=== PATIENT | male | born 1965 | race Caucasian/White ===

== ENCOUNTER 2019-05-06 12:53 | Inpatient (IN) | payer OTHER ==
[2019-05-06 15:52] VITALS: BMI 36.9
--- NOTE | 2019-05-06 16:59 | HP ---
CIWA Score Nausea/Vomitin-Mild Nausea/No Vomiting Muscle Tremors: 3 Anxiety: 2 Agitation: 1-Slight > Activity Paroxysmal Sweats: 1-Minimal Palms Moist Orientation: 0-Oriented Tacttile Disturbances: 1-Very Mild Itch/Numbness Auditory Disturbances: 1-Very Mild Visual Disturbances: 1-Very Mild Sensitivity Headache: 1-Very Mild CIWA-Ar Total Score: 12 - Admission Criteria OASAS Guidelines: Admission for Medically Managed Detox: Requires at least one of the followin. CIWA greater than 12 2. Seizures within the past 24 hours 3. Delirium tremens within the past 24 hours 4. Hallucinations within the past 24 hours 5. Acute intervention needed for co occurring medical disorder 6. Acute intervention needed for co occurring psychiatric disorder 7. Severe withdrawal that cannot be handled at a lower level of care (continued vomiting, continued diarrhea, abnormal vital signs) requiring intravenous medication and/or fluids 8. Admission ROS [facility] - [facility] Chief Complaint: WITHDRAWAL SYMPTOMS Allergies/Adverse Reactions: Allergies Allergy/AdvReac Type Severity Reaction Status Date / Time Penicillins Allergy Intermediate Rash Verified 05/06/19 15:36 History of Present Illness: 53 Y.O. MAN WITH AN EXTENSIVE HISTORY OF ALCOHOL DEPENDENCE IS HERE FOR DETOX. HE REPORTS HE LAST COMPLETED DETOX 8 MONTHS AGO AT [facility]. DOES NOT HAVE A SIGNIFICANT PERIOD OF SOBRIETY. Exam Limitations: No Limitations - Ebola screening Have you traveled outside of the country in the last 21 days: No Have you had contact with anyone from an Ebola affected area: No - Review of Systems Constitutional: No Symptoms Reported EENT: reports: No Symptoms Reported Respiratory: reports: No Symptoms reported Cardiac: reports: No Symptoms Reported GI: reports: No Symptoms Reported : reports: No Symptoms Reported Musculoskeletal: reports: No Symptoms Reported Integumentary: reports: No Symptoms Reported Neuro: reports: Headache, Tremors Endocrine: reports: No Symptoms Reported Hematology: reports: No Symptoms Reported Psychiatric: reports: Orientated x3 Other Systems: Reviewed and Negative Patient History - Patient Medical History Hx Anemia: No Hx Asthma: Yes Hx Chronic Obstructive Pulmonary Disease (COPD): No Hx Cancer: No Hx Cardiac Disorders: No Hx Congestive Heart Failure: No Hx Hypertension: Yes (TAKES MEDICATION ) Hx Hypercholesterolemia: Yes (TAKES MEDICATION ) Hx Pacemaker: No HX Cerebrovascular Accident: No Hx Seizures: No Hx Dementia: No Hx Diabetes: Yes (TAKES MEDICATION ) Hx Gastrointestinal Disorders: Yes Hx Liver Disease: No Hx Genitourinary Disorders: No Hx Sexually Transmitted Disorders: No Hx Renal Disease (ESRD): No Hx Thyroid Disease: No Hx Human Immunodeficiency Virus (HIV): No Hx Hepatitis C: No Hx Depression: Yes (TAKES MEDICATION ) Hx Suicide Attempt: Yes (9 YEARS AGO ATTEMPTED TO SLIT HIS WRISTS ) Hx Bipolar Disorder: Yes Hx Schizophrenia: Yes - Patient Surgical History Past Surgical History: No - PPD History Previous Implant?: Yes Documented Results: Negative w/o proof PPD to be Administered?: Yes - Reproductive History Patient is a Female of Child Bearing Age (11 -55 yrs old): No - Smoking Cessation Smoking history: Never smoked - Substance & Tx. History Hx Alcohol Use: Yes Hx Substance Use: No Substance Use Type: Alcohol Hx Substance Use Treatment: Yes (8 MONTHS AGO AT [facility] ) - Substances abused Alcohol Substance route: Oral Frequency: Daily Amount used: 2/40oz beer, 1 pint vodka Age of first use: 21 Date of last use: 05/05/19 Family Disease History - Family Disease History Family Disease History: Other: Mother (ETOH DEPENDENCE ), Sister (ETOH DEPENDENCE ) Admission Physical Exam [facility] - Vital Signs Vital Signs: Vital Signs - 24 hr 05/06/19 15:31 Temperature 97.1 F L Pulse Rate 71 Respiratory 16 Rate Blood Pressure 124/71 - Physical General Appearance: Yes: Irritable, Anxious HEENTM: Yes: Hearing grossly Normal, Normocephalic, Normal Voice Respiratory: Yes: Chest Non-Tender, Lungs Clear, Normal Breath Sounds, No Respiratory Distress, No Accessory Muscle Use Neck: Yes: Within Normal Limits Breast: Yes: Breast Exam Deferred Cardiology: Yes: Regular Rhythm, Regular Rate Abdominal: Yes: Normal Bowel Sounds, Non Tender Genitourinary: Yes: Other (DENIES) Back: Yes: Normal Inspection Musculoskeletal: Yes: full range of Motion, Gait Steady, Pelvis Stable Extremities: Yes: Normal Inspection, Normal Range of Motion, Tremors Neurological: Yes: Alert, Motor Strength 5/5, Normal Mood/Affect, Normal Response Integumentary: Yes: Normal Color, Dry, Warm Lymphatic: Yes: Within Normal Limits - Diagnostic (1) Alcohol dependence with uncomplicated withdrawal Current Visit: Yes Status: Chronic (2) Asthma Current Visit: Yes Status: Chronic (3) Diabetes type 2, controlled Current Visit: Yes Status: Chronic (4) Hypertension Current Visit: Yes Status: Chronic (5) Hyperlipidemia Current Visit: Yes Status: Chronic (6) Obese Current Visit: Yes Status: Chronic Qualifiers: Obesity classification: adult class 2 (BMI 35 - 39.9) Body mass index: BMI 37.0-37.9 (7) GERD (gastroesophageal reflux disease) Current Visit: Yes Status: Chronic Cleared for Admission [facility] - Detox or Rehab [facility] Level of Care: Medically Managed Detox Regimen/Protocol: Librium Inpatient Rehab Admission - Rehab Decision to Admit Inpatient rehab admission?: No
[2019-05-06] MEDS ORDERED: QUEtiapine FUMARATE 100 MG TABLET (FP) PO PRN (17:10)
[2019-05-06] MEDS ORDERED: MELATONIN 5 MG TABLETS PO PRN (17:10)
[2019-05-06] MEDS ORDERED: MENTHOL/PHENOL 1 EACH UD MM PRN (17:10)
[2019-05-06] MEDS ORDERED: hydrOXYzine PAMOATE 50 MG CAPSULE (FP) PO PRN (17:10)
[2019-05-06] MEDS ORDERED: IBUPROFEN 400 MG TABLET (FP) PO PRN (17:10)
[2019-05-06] MEDS ORDERED: chlordiazePOXIDE HCL 10 MG CAPSULE PO PRN (17:10)
[2019-05-06] MEDS ORDERED: MAG HYDROX/AL HYDROX/SIMETH 30 ML UNIT-DOSE CUP PO PRN (17:10)
[2019-05-06] MEDS ORDERED: MAGNESIUM HYDROX 2400MG/30ML ORAL SUSPENSION 30 ML CUP PO PRN (17:10)
[2019-05-06] MEDS ORDERED: METHOCARBAMOL 500 MG TABLET PO PRN (17:10)
[2019-05-06] MEDS ORDERED: ACETAMINOPHEN 325 MG TABLET (FP) PO PRN ×2 (17:10)
[2019-05-06] MEDS ORDERED: BISMUTH SUBSALICYLATE 524 MG/30 ML UD PO PRN (17:10)
[2019-05-06] MEDS ORDERED: MAGNESIUM CITRATE 300 ML BOTTLE PO PRN (17:10)
[2019-05-06] MEDS ORDERED: chlordiazePOXIDE HCL 25 MG CAPSULE PO ONE (18:00)
[2019-05-06] MEDS: ALBUTEROL SO4 8 GM HFA INHALER IH PRN (19:19)
[2019-05-06] MEDS: ATORVASTATIN CA 20 MG TABLET (FP) PO SCH (22:12)
[2019-05-06] MEDS: THIAMINE HCL 100 MG TABLET (FP) PO SCH (22:12)
[2019-05-06] MEDS: chlordiazePOXIDE HCL 25 MG CAPSULE PO SCH (22:12)
[2019-05-07] MEDS: ALBUTEROL SO4 8 GM HFA INHALER IH PRN ×3 (03:36→20:37)
[2019-05-07] MEDS: chlordiazePOXIDE HCL 25 MG CAPSULE PO SCH ×2 (06:40→13:09)
--- NOTE | 2019-05-07 08:05 | EKG ---
Test Reason : Blood Pressure : / mmHG Vent. Rate : 067 BPM Atrial Rate : 067 BPM P-R Int : 172 ms QRS Dur : 096 ms QT Int : 406 ms P-R-T Axes : 010 -09 013 degrees QTc Int : 429 ms NORMAL SINUS RHYTHM MINIMAL VOLTAGE CRITERIA FOR LVH, MAY BE NORMAL VARIANT BORDERLINE ECG NO PREVIOUS ECGS AVAILABLE Confirmed by SOPHIA MERCADO MD ([id number]) on 05/07/2019 8:04:30 AM Referred By: Confirmed By:SOPHIA MERCADO MD
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
[2019-05-07] MEDS: SERTRALINE HCL 50 MG TABLET (FP) PO SCH (10:17)
[2019-05-07] MEDS: LOSARTAN POTASSIUM 50 MG TABLET (FP) PO SCH (10:17)
[2019-05-07] MEDS: PRENATAL VITAMINS W/ FOLIC ACID TABLET (FP) PO SCH (10:17)
--- NOTE | 2019-05-07 11:17 | PN ---
[facility] CIWA - CIWA Score Nausea/Vomitin-Mild Nausea/No Vomiting Muscle Tremors: 2 Anxiety: 1-Mildly Anxious Agitation: 1-Slight > Activity Paroxysmal Sweats: No Perspiration Orientation: 0-Oriented Tacttile Disturbances: 0-None Auditory Disturbances: 0-None Visual Disturbances: 0-None Headache: 0-None Present CIWA-Ar Total Score: 5 BHS Progress Note (SOAP) Subjective: pt states he is feeling fine, on alcohol detox protocol O: Vital Signs - 24 hr 05/06/19 05/06/19 05/06/19 15:31 16:56 18:20 Temperature 97.1 F L 97.1 F L 98.1 F Pulse Rate 71 71 67 Respiratory 16 16 18 Rate Blood Pressure 124/71 124/71 148/82 05/06/19 05/07/19 05/07/19 20:42 07:01 10:00 Temperature 97.9 F 9737 F H 97.5 F L Pulse Rate 66 66 64 Respiratory 18 18 20 Rate Blood Pressure 125/68 116/69 123/75 Laboratory Tests 05/06/19 05/07/19 18:22 06:38 POC Glucometer 147 107 labs pending a/p: contine alcohol detox protocol requesting nebulizer treatment for asthma- given X1
[2019-05-07] MEDS ORDERED: ALBUTEROL SO4 0.083% IH SOL 2.5 MG/3 ML VIAL.NEB. NEB ONE ×2 (12:10→23:27)
[2019-05-07] MEDS: QUEtiapine FUMARATE 400 MG TABLET PO SCH (22:12)
[2019-05-07] MEDS: THIAMINE HCL 100 MG TABLET (FP) PO SCH (22:12)
[2019-05-07] MEDS: ATORVASTATIN CA 20 MG TABLET (FP) PO SCH (22:12)
[2019-05-07] MEDS: chlordiazePOXIDE 5 MG CAPSULE PO SCH (22:13)
[2019-05-07] MEDS ORDERED: ONDANSETRON *ODT* 4 MG TABLET SL ONE (23:28)
--- NOTE | 2019-05-08 00:03 | PN ---
[facility] Progress Note Note: Patient complained of feeling wheezing and nauseous Vital Signs Temperature 97.9 F 05/07/19 21:22 Pulse Rate 69 05/07/19 21:22 Respiratory Rate 18 05/07/19 21:22 Blood Pressure 128/75 05/07/19 21:22 O2 Sat by Pulse Oximetry (%) 96% RA Action: Ondansetron 4mg SL and nebulizer treatment ordered
[2019-05-08] MEDS: ALBUTEROL SO4 8 GM HFA INHALER IH PRN ×2 (04:51→08:56)
[2019-05-08] MEDS ORDERED: ALBUTEROL SO4 0.083% IH SOL 2.5 MG/3 ML VIAL.NEB. NEB ONE (04:57)
[2019-05-08] MEDS: chlordiazePOXIDE 5 MG CAPSULE PO SCH ×2 (05:42→14:00)
[2019-05-08] MEDS ORDERED: ALBUTEROL SO4 2.5/IPRATROPIUM 0.5 INH SOL 3 ML VIAL.NEB. NEB PRN (09:18)
[2019-05-08] MEDS ORDERED: predniSONE 20 MG TABLET (UD) PO ONE (10:00)
--- NOTE | 2019-05-08 10:20 | PN ---
[facility] CIWA - CIWA Score Nausea/Vomitin Muscle Tremors: 2 Anxiety: 2 Agitation: 2 Paroxysmal Sweats: 1-Minimal Palms Moist Orientation: 0-Oriented Tacttile Disturbances: 1-Very Mild Itch/Numbness Auditory Disturbances: 1-Very Mild Visual Disturbances: 0-None Headache: 2-Mild CIWA-Ar Total Score: 13 [facility]HS Progress Note (SOAP) Subjective: alert,irritable,anxious,interrupted sleep,expiratory wheezing Objective: 05/08/19 10:17 Vital Signs Temperature 97.5 F L 05/08/19 09:11 Pulse Rate 67 05/08/19 09:11 Respiratory Rate 16 05/08/19 09:11 Blood Pressure 120/71 05/08/19 09:11 O2 Sat by Pulse Oximetry (%) 05/08/19 10:17 Laboratory Last Values POC Glucometer 194 UNITS (80-120) 05/08/19 05:41 labs pending Assessment: 05/08/19 10:18 withdrawal symptom acute exacerbation of asthma Plan: continue detox,albuterol inhaler,symbicort inhaler,duoneb nebulizer,start on prednisone
[2019-05-08 11:03] LABS: ALBUMIN 3.7 g/dl (3.4-5.0); BILIRUBIN,TOTAL 0.3 mg/dL (0.2-1); BLOOD UREA NITROGEN 10.2 mg/dL (7-18); CALCIUM 8.6 mg/dL (8.5-10.1); CREATININE 0.7 mg/dL (0.55-1.3); POTASSIUM 4.1 mmol/L (3.5-5.1); TOT PROT 6.6 g/dl (6.4-8.2)
[2019-05-08 11:05] LABS: HEMATOCRIT 38.6 % (35.4-49); HEMOGLOBIN 12.9 GM/dL (11.7-16.9); MCH 30.5 pg (25.7-33.7); MCHC 33.5 g/dl (32.0-35.9); MEAN CELL VOLUME 91.2 fl (80-96); MEAN PLT VOLUME 8.8 fl (7.5-11.1); PLATELET COUNT 234 K/MM3 (134-434); RBC 4.23 M/mm3 (4.00-5.60); RDW 13.8 % (11.9-15.9); WHITE BLOOD COUNT 6.9 K/mm3 (4.0-10.0)
[2019-05-08] MEDS: LOSARTAN POTASSIUM 50 MG TABLET (FP) PO SCH (11:21)
[2019-05-08] MEDS: BUDESONIDE/FORMETEROL FUMARATE 160/4.5 mcg INHALER IH SCH ×2 (11:21→22:11)
[2019-05-08] MEDS: PRENATAL VITAMINS W/ FOLIC ACID TABLET (FP) PO SCH (11:21)
[2019-05-08] MEDS: SERTRALINE HCL 50 MG TABLET (FP) PO SCH (11:25)
[2019-05-08] MEDS ORDERED: chlordiazePOXIDE HCL 10 MG CAPSULE PO PRN (21:00)
[2019-05-08] MEDS: chlordiazePOXIDE HCL 10 MG CAPSULE PO SCH (22:11)
[2019-05-08] MEDS: ATORVASTATIN CA 20 MG TABLET (FP) PO SCH (22:11)
[2019-05-08] MEDS: QUEtiapine FUMARATE 400 MG TABLET PO SCH (22:11)
[2019-05-08] MEDS: THIAMINE HCL 100 MG TABLET (FP) PO SCH (22:12)
[2019-05-09] MEDS: chlordiazePOXIDE HCL 10 MG CAPSULE PO SCH ×3 (06:41→22:05)
--- NOTE | 2019-05-09 09:30 | PN ---
[facility] CIWA - CIWA Score Nausea/Vomitin-No Nausea/No Vomiting Muscle Tremors: 1-None Visible, but [place] Anxiety: 2 Agitation: 0-Normal Activity Paroxysmal Sweats: 2 Orientation: 0-Oriented Tacttile Disturbances: 1-Very Mild Itch/Numbness Auditory Disturbances: 0-None Visual Disturbances: 0-None Headache: 1-Very Mild CIWA-Ar Total Score: 7 S Progress Note (SOAP) Subjective: c/o of interrupted sleep, constipation x 4 days ( denies abdominal pain), chills , sweats Objective: 05/09/19 11:02 Vital Signs Temperature 97.2 F L 05/09/19 09:13 Pulse Rate 63 05/09/19 09:13 Respiratory Rate 18 05/09/19 09:13 Blood Pressure 125/76 05/09/19 09:13 O2 Sat by Pulse Oximetry (%) Laboratory Last Values WBC 6.9 K/mm3 (4.0-10.0) 05/08/19 07:30 RBC 4.23 M/mm3 (4.00-5.60) 05/08/19 07:30 Hgb 12.9 GM/dL (11.7-16.9) 05/08/19 07:30 Hct 38.6 % (35.4-49) 05/08/19 07:30 MCV 91.2 fl (80-96) 05/08/19 07:30 MCH 30.5 pg (25.7-33.7) 05/08/19 07:30 MCHC 33.5 g/dl (32.0-35.9) 05/08/19 07:30 RDW 13.8 % (11.9-15.9) 05/08/19 07:30 Plt Count 234 K/MM3 (134-434) 05/08/19 07:30 MPV 8.8 fl (7.5-11.1) 05/08/19 07:30 Sodium 140 mmol/L (136-145) 05/08/19 07:30 Potassium 4.1 mmol/L (3.5-5.1) 05/08/19 07:30 Chloride 107 mmol/L (98-107) 05/08/19 07:30 Carbon Dioxide 26 mmol/L (21-32) 05/08/19 07:30 Anion Gap 7 MMOL/L (8-16) L 05/08/19 07:30 BUN 10.2 mg/dL (7-18) 05/08/19 07:30 Creatinine 0.7 mg/dL (0.55-1.3) 05/08/19 07:30 Est GFR (CKD-EPI)AfAm 124.87 05/08/19 07:30 Est GFR (CKD-EPI)NonAf 107.74 05/08/19 07:30 POC Glucometer 261 UNITS (80-120) 05/09/19 06:37 Random Glucose 143 mg/dL (74-106) H 05/08/19 07:30 Calcium 8.6 mg/dL (8.5-10.1) 05/08/19 07:30 Total Bilirubin 0.3 mg/dL (0.2-1) 05/08/19 07:30 AST 21 U/L (15-37) 05/08/19 07:30 ALT 64 U/L (13-61) H 05/08/19 07:30 Alkaline Phosphatase 56 U/L (45-117) 05/08/19 07:30 Total Protein 6.6 g/dl (6.4-8.2) 05/08/19 07:30 Albumin 3.7 g/dl (3.4-5.0) 05/08/19 07:30 RPR Titer Nonreactive (NONREACTIVE) 05/08/19 07:30 HIV 1&2 Antibody Screen Negative 05/08/19 07:30 HIV P24 Antigen Negative 05/08/19 07:30 labs reviewed Assessment: 05/09/19 11:02 Aox3 no acute distress ABD non-tender, non-distended full ROM ambulating in the unit withdrawal symptoms Plan: increase PO fluids ambulate continue detox MOM x1 continue to monitor
[2019-05-09] MEDS ORDERED: predniSONE 10 MG TABLET (UD) PO ONE (10:00)
[2019-05-09] MEDS: BUDESONIDE/FORMETEROL FUMARATE 160/4.5 mcg INHALER IH SCH ×2 (10:01→22:06)
[2019-05-09] MEDS: LOSARTAN POTASSIUM 50 MG TABLET (FP) PO SCH (10:02)
[2019-05-09] MEDS: PRENATAL VITAMINS W/ FOLIC ACID TABLET (FP) PO SCH (10:02)
[2019-05-09] MEDS: SERTRALINE HCL 50 MG TABLET (FP) PO SCH (10:03)
[2019-05-09] MEDS: ATORVASTATIN CA 20 MG TABLET (FP) PO SCH (22:06)
[2019-05-09] MEDS: THIAMINE HCL 100 MG TABLET (FP) PO SCH (22:06)
[2019-05-09] MEDS: QUEtiapine FUMARATE 400 MG TABLET PO SCH (22:06)
[2019-05-10 06:50] VITALS: BP 113/64; PULSE 71; TEMP 97.9
[2019-05-10] MEDS ORDERED: predniSONE 20 MG TABLET (UD) PO ONE (10:00)
--- NOTE | 2019-05-10 12:36 | DS ---
[facility] Detox Discharge Summary Admission Date: 05/06/19 Discharge Date: 05/10/19 - History Present History: Alcohol Dependence Additional Comments: Pt is medically cleared and is discharged today. Pt completed his detox protocol. As per counselor's notes, "Pt continue to be motivated to further tx at [facility]. Pt reported will attend appt on 05/12/19 @ 10:30 am. Pt encouraged to attend 12 step mtgs. Pt was given mtg list for 12 step mtgs in his area". Pt is encouraged to follow-up with CD outpatient program an discussed with his counselor and also to follow-up with his PMD. Pt is AOX3 and in no acute respiratory distress. Pertinent Past History: H/O asthma, HTN, DM, dyslipidemia, and alcohol use disorder. - Physical Exam Results Vital Signs: Vital Signs Temperature 97.9 F 05/10/19 06:00 Pulse Rate 71 05/10/19 06:00 Respiratory Rate 18 05/10/19 06:00 Blood Pressure 113/64 05/10/19 06:00 O2 Sat by Pulse Oximetry (%) Pertinent Admission Physical Exam Findings: withdrawal symptoms. - Treatment Hospital Course: Detox Protocol Followed, Detoxed Safely, Responded well, Discharged Condition Good - Medication Discharge Medications: Ambulatory Orders Albuterol Sulfate Inhaler - [Ventolin HFA Inhaler -] 2 puff IH QID PRN 05/06/19 Glipizide [Glipizide ER] 5 mg PO BID 05/06/19 Losartan Potassium 50 mg PO DAILY 05/06/19 Metformin HCl [Glucophage] 1,000 mg PO BID 05/06/19 Quetiapine Fumarate "Xr" [Seroquel Xr -] 400 mg PO DAILY 05/06/19 Sertraline HCl [Zoloft] 100 mg PO DAILY 05/06/19 Simvastatin 20 mg PO HS 05/06/19 - Diagnosis (1) Alcohol dependence with uncomplicated withdrawal Status: Chronic (2) Asthma Status: Chronic (3) Diabetes type 2, controlled Status: Chronic (4) GERD (gastroesophageal reflux disease) Status: Chronic (5) Hyperlipidemia Status: Chronic (6) Hypertension Status: Chronic (7) Obese Status: Chronic Qualifiers: Obesity classification: adult class 2 (BMI 35 - 39.9) Body mass index: BMI 37.0-37.9 - AMA Did Patient Leave Against Medical Advice: No
[2019-05-11] MEDS ORDERED: predniSONE 10 MG TABLET (UD) PO ONE (10:00)
[2019-05-12] MEDS ORDERED: predniSONE 5 MG TABLET (UD) PO ONE (10:00)
== END 2019-05-10 08:50 | disposition home or self-care (01) | DRG 897 ==
LOC: YASAS 12:53 → Y6N 17:56
PROVIDERS: ADMIT Surgery; ATTEND Surgery
PROC: HZ2ZZZZ Detoxification Services for Substance Abuse Treatment (ICD-10-PCS; principal; 2019-05-06)
DX: F10.230 Alcohol dependence with withdrawal, uncomplicated (principal); J45.901 Unspecified asthma with (acute) exacerbation; F10.24 Alcohol dependence with alcohol-induced mood disorder; F10.282 Alcohol dependence with alcohol-induced sleep disorder; F25.9 Schizoaffective disorder, unspecified; I10 Essential (primary) hypertension; E11.9 Type 2 diabetes mellitus without complications; K21.9 Gastro-esophageal reflux disease without esophagitis; E66.9 Obesity, unspecified; Z68.37 Body mass index [BMI] 37.0-37.9, adult; Z88.0 Allergy status to penicillin; Z79.84 Long term (current) use of oral hypoglycemic drugs; Z91.5 Personal history of self-harm
CPT/HCPCS: 36415; 80053; 82962; 85027; 86593; 87389; 93005; 93010; 94640; Q0162

== ENCOUNTER 2019-11-07 10:26 | Inpatient (IN) | payer OTHER ==
[2019-11-07 10:58] VITALS: BMI 36.3
--- NOTE | 2019-11-07 11:28 | HP ---
CIWA Score Nausea/Vomitin-No Nausea/No Vomiting Muscle Tremors: 3 Anxiety: 3 Agitation: 2 Paroxysmal Sweats: 3 Orientation: 0-Oriented Tacttile Disturbances: 0-None Auditory Disturbances: 0-None Visual Disturbances: 0-None Headache: 2-Mild CIWA-Ar Total Score: 13 - Admission Criteria OASAS Guidelines: Admission for Medically Managed Detox: Requires at least one of the followin. CIWA greater than 12 2. Seizures within the past 24 hours 3. Delirium tremens within the past 24 hours 4. Hallucinations within the past 24 hours 5. Acute intervention needed for co occurring medical disorder 6. Acute intervention needed for co occurring psychiatric disorder 7. Severe withdrawal that cannot be handled at a lower level of care (continued vomiting, continued diarrhea, abnormal vital signs) requiring intravenous medication and/or fluids 8. Admitting History and Physical - Admission History of Present Illness: 53 years old male with alcohol dependence with withdrawals. He has had recent blackout 4 months ago. He was abstinent from last year 04/2018 till 5 months ago when his mother and he started drinking again. He is now drinking up to 1/2 vodka daily and 2 6pack of beers daily. He last drank yesterday one six pack of beer and is now experiencing withdrawal symptoms. He says he ran out of money to continue to drink so heavily and thought he now has to deal with his relapse. He denies withdrawal seizures but has to have an eye refractory manager every day. He is also using cocaine intranasally $40 daily, last use was 3 days ago. He uses cocaine on the weekends. He never smoked ciggarettes. PMH: Asthma, HLD, HTN, Obesity, Pre-diabetic. Psurg: None Psych: Bipolar Disorder on Seroquel 400mg QHS Meds: Seroquel,glipizide 5 mg daily, simvastatin 20mg daily, advair 250/50 2Puffs BID, Albuterol MDI 2Puffs QID prn, Meformin 1Gm BID, Losartan 50mg daily He wishes to detox and then follow up with rehab. History Source: Patient Limitations to Obtaining History: No Limitations - Past Medical History Cardiovascular: Yes: HTN Pulmonary: Yes: Asthma Psych: Yes: Bipolar Endocrine: Yes: Diabetes Mellitus - Past Surgical History Past Surgical History: Yes: None - Advance Directives Advance Directives: No: Living Will, Health Care Proxy, DNR - Smoking History Smoking history: Never smoked Have you smoked in the past 12 months: No - Alcohol/Substance Use Hx Alcohol Use: Yes (2 six packs per day and 1/2 pint vodka daily) History of Substance Use: reports: Cocaine - Social History Usual Living Arrangement: Yes: Alone Do you think of yourself as: Straight/Heterosexual ADL: Independent 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 Loss EENT: reports: No Symptoms Reported Respiratory: reports: No Symptoms reported Cardiac: reports: No Symptoms Reported GI: reports: No Symptoms Reported : reports: No Symptoms Reported Musculoskeletal: reports: No Symptoms Reported Integumentary: reports: No Symptoms Reported Neuro: reports: No Symptoms reported Endocrine: reports: No Symptoms Reported Hematology: reports: No Symptoms Reported Psychiatric: reports: Judgement Intact, Mood/Affect Appropiate, Orientated x3 Other Systems: Reviewed and Negative Patient History - Patient Medical History Hx Anemia: No Hx Asthma: Yes Hx Chronic Obstructive Pulmonary Disease (COPD): No Hx Cancer: No Hx Cardiac Disorders: No Hx Congestive Heart Failure: No Hx Hypertension: Yes Hx Hypercholesterolemia: Yes (TAKES MEDICATION ) Hx Pacemaker: No HX Cerebrovascular Accident: No Hx Seizures: No Hx Dementia: No Hx Diabetes: No Hx Gastrointestinal Disorders: No Hx Liver Disease: No Hx Genitourinary Disorders: No Hx Sexually Transmitted Disorders: No Hx Renal Disease (ESRD): No Hx Thyroid Disease: No Hx Human Immunodeficiency Virus (HIV): No Hx Hepatitis C: No Hx Depression: Yes Hx Suicide Attempt: Yes (9 YEARS AGO ATTEMPTED TO SLIT HIS WRISTS ) Hx Bipolar Disorder: Yes Hx Schizophrenia: Yes - Patient Surgical History Past Surgical History: No - PPD History Previous Implant?: Yes Documented Results: Negative w/proof Implanted On Prior [facility] Admission?: Yes Date: 05/08/19 Results: negative PPD to be Administered?: No - Smoking Cessation Smoking history: Never smoked Have you smoked in the past 12 months: No Hx Chewing Tobacco Use: No Initiated information on smoking cessation: No - Substances abused Other Substance route: Oral Frequency: Daily Amount used: 1/2 pint vodka & (2) 6 pk beer budweiser Age of first use: 21 Date of last use: 11/06/19 Alcohol Substance route: Oral Frequency: Daily Amount used: 1/2 pint vodka & (2) 6 pk beer budweiser Age of first use: 21 Date of last use: 11/06/19 Admission Physical Exam [facility] - Vital Signs Vital Signs: Vital Signs - 24 hr 11/07/19 10:49 Temperature 96.7 F L Pulse Rate 79 Respiratory 20 Rate Blood Pressure 140/89 - Physical General Appearance: Yes: Mild Distress, Tremorous, Irritable, Sweating HEENTM: Yes: EOMI, Hearing grossly Normal, Normal ENT Inspection, Normocephalic , Normal Voice, MARYBETH, Pharynx Normal, Tm's normal Respiratory: Yes: Chest Non-Tender, Lungs Clear, Normal Breath Sounds, No Respiratory Distress, No Accessory Muscle Use, Surgical Scar Neck: Yes: Supple, Trachea in good position Breast: Yes: Within Normal Limits Cardiology: Yes: Regular Rhythm, Regular Rate Abdominal: Yes: Non Tender, Soft, Increased Bowel Sounds, Protuberent Genitourinary: Yes: Within Normal Limits Back: Yes: Normal Inspection Musculoskeletal: Yes: full range of Motion, Gait Steady, Pelvis Stable Extremities: Yes: Normal Capillary Refill, Normal Inspection, Normal Range of Motion, Non-Tender Neurological: Yes: production assistant II-XII NML intact, Fully Oriented, Alert, Motor Strength 5/5, Normal Mood/Affect Integumentary: Yes: Normal Color, Warm Lymphatic: Yes: Within Normal Limits - Diagnostic (1) Alcohol dependence with uncomplicated withdrawal Current Visit: Yes Status: Acute (2) Asthma Current Visit: Yes Status: Chronic (3) Diabetes type 2, controlled Current Visit: Yes Status: Chronic (4) GERD (gastroesophageal reflux disease) Current Visit: Yes Status: Chronic (5) Hyperlipidemia Current Visit: Yes Status: Chronic (6) Hypertension Current Visit: Yes Status: Chronic (7) Obese Current Visit: Yes Status: Chronic Qualifiers: Obesity classification: adult class 2 (BMI 35 - 39.9) Body mass index: BMI 37.0-37.9 (8) Schizoaffective disorder Current Visit: Yes Status: Chronic Cleared for Admission S - Detox or Rehab [facility] Level of Care: Medically Managed Detox Regimen/Protocol: Librium Claeared for Rehab Admission: No Screened but not Admitted - Documentation of Visit Screened but not Admitted: No Breathalyzer - Breathalyzer Breathalyzer: 0 Vital Signs - Vital Signs Vital signs refused: No Urine Drug Screen - Test Device Lot number: [id number] Expiration date: 06/10/21 - Control Is test valid?: Yes - Results Drug screen NEGATIVE: No Urine drug screen results: [facility]AMESON-Cocaine Inpatient Rehab Admission - Rehab Decision to Admit Inpatient rehab admission?: No
[2019-11-07] MEDS ORDERED: MAGNESIUM HYDROX 2400MG/30ML ORAL SUSPENSION 30 ML CUP PO PRN (11:32)
[2019-11-07] MEDS ORDERED: MAGNESIUM CITRATE 300 ML BOTTLE PO PRN (11:32)
[2019-11-07] MEDS ORDERED: hydrOXYzine PAMOATE 25 MG CAPSULE (FP) PO PRN (11:32)
[2019-11-07] MEDS ORDERED: ACETAMINOPHEN 325 MG TABLET (FP) PO PRN (11:32)
[2019-11-07] MEDS ORDERED: chlordiazePOXIDE HCL 25 MG CAPSULE PO PRN (11:32)
[2019-11-07] MEDS ORDERED: IBUPROFEN 400 MG TABLET (FP) PO PRN (11:32)
[2019-11-07] MEDS ORDERED: METHOCARBAMOL 500 MG TABLET PO PRN (11:32)
[2019-11-07] MEDS ORDERED: MELATONIN 5 MG TABLETS PO PRN (11:32)
[2019-11-07] MEDS: chlordiazePOXIDE HCL 25 MG CAPSULE PO SCH ×3 (12:56→22:28)
[2019-11-07 14:46] LABS: HEMATOCRIT 40.4 % (35.4-49); HEMOGLOBIN 13.5 GM/dL (11.7-16.9); MCH 30.5 pg (25.7-33.7); MCHC 33.3 g/dl (32.0-35.9); MEAN CELL VOLUME 91.5 fl (80-96); MEAN PLT VOLUME 8.9 fl (7.5-11.1); PLATELET COUNT 242 K/MM3 (134-434); RBC 4.42 M/mm3 (4.00-5.60); RDW 13.6 % (11.9-15.9); WHITE BLOOD COUNT 5.7 K/mm3 (4.0-10.0)
[2019-11-07 15:03] LABS: ALBUMIN 3.9 g/dl (3.4-5.0); BILIRUBIN,TOTAL 0.5 mg/dL (0.2-1); BLOOD UREA NITROGEN 7.3 mg/dL (7-18); CALCIUM 9.8 mg/dL (8.5-10.1); POTASSIUM 3.8 mmol/L (3.5-5.1); TOT PROT 7.1 g/dl (6.4-8.2)
--- NOTE | 2019-11-07 15:11 | CONSULT ---
[facility] Psychiatric Consult - Data Date of interview: 11/07/19 Admission source: [facility] Identifying data: Revisit to [facility] and admission to [address] [place] [address] for this 53 y/o male self-referred for detoxification. NICKY issues : alcohol, cocaine. Patient is single, father of two, domiciled, unemployed and supported on [facility] benefits. Substance Abuse History: Discussed with the patient. Details in current [facility] report as follows : Smoking history: Never smoked. Have you smoked in the past 12 months: No. Hx Chewing Tobacco Use: No. Initiated information on smoking cessation: No. Substances abused. Other. Substance route: Oral. Frequency : Daily. Amount used: 1/2 pint vodka & (2) 6 pk beer budweiser. Age of first use: 21. Date of last use: 11/06/19 Medical History: Medical profile is remarkable for bronchial asthma, hypertension, dyslipidemia, type 2 diabetes mellitus, GERD and obesity. Noted report of allergy to penicillins. Psychiatric History: Onset of psychiatric disturbances (auditory hallucinations with suicidal commands) : 2008. Patient presents with a profile of multiple psychiatric hospitalizations. He is known to [facility] (no longer in existence) + [facility] (closed down) + [facility] + [facility] + [facility] + [facility]. Mr Arellano is still receiving outpatient psychiatric care at [facility] clinic in [place], [place]. Patient is currently maintained on a regimen of seroquel 400 mg/ hs. Diagnosed with Bipolar Disorder. Suicide history is remarkable for an account of three attempts (self-mutilation, ingestion of bleach, deliberate jump into the path of oncoming traffic). Most recent attempt (wrist-cutting) occurred 5 years ago, as per self-report. Patient endorses adequate adherence to OPD care. Physical/Sexual Abuse/Trauma History: Patient denies history of abuse. Additional Comment: Urine drug screen results: JAMESON-Cocaine. Noted. Mental Status Exam - Mental Status Exam Alert and Oriented to: Time, Place, Person Cognitive Function: Good Patient Appearance: Well Groomed Mood: Hopeful, Euthymic Affect: Appropriate, Normal Range Patient Behavior: Fatigued, Appropriate, Cooperative Speech Pattern: Clear Voice Loudness: Normal Thought Process: Intact, Goal Oriented Thought Disorder: Not Present Hallucinations: Denies Suicidal Ideation: Denies Homicidal Ideation: Denies Insight/Judgement: Fair Sleep: Poorly, Difficulty falling asleep Appetite: Good Muscle strength/Tone: Normal Gait/Station: Normal Psychiatric Findings - Problem List ([place] 1, 2,3) (1) Alcohol dependence with uncomplicated withdrawal Current Visit: Yes Status: Acute (2) Schizoaffective disorder Current Visit: Yes Status: Chronic (3) Substance induced mood disorder Current Visit: Yes Status: Chronic (4) Insomnia Current Visit: Yes Status: Chronic - Initial Treatment Plan Initial Treatment Plan: Records ([facility]) revisited. Psychoeducation. Sleep hygiene. Detoxification in progress. Attempt to contact [facility] at : unsuccessful (pharmacy is closed at time of scientific writer's call). Patient is felt as trustworthy and reliable. Besides, there is evidence of good tolerability to this dose of seroquel according to records. Dose resumed as per orders from [facility]. Side effects/benefits discussed with patient (brought own medications to the unit). Mr Arellano insisted on continuation of his medication and gave his consent (verbal) to the implementation of this plan of care. Observation.
[2019-11-07] MEDS: GLIPIZIDE 5 MG PO SCH (17:05)
[2019-11-07] MEDS: PATIENT'S OWN MEDICATION (NON-FORMULARY) (Metformin Hcl [Glucophage] 1,000 MG) PO SCH (17:08)
[2019-11-07] MEDS: MAG HYDROX/AL HYDROX/SIMETH 30 ML UNIT-DOSE CUP PO PRN (20:25)
[2019-11-07] MEDS ORDERED: GLIPIZIDE 5 MG PO SCH (22:00)
[2019-11-07] MEDS: PATIENT'S OWN MEDICATION (NON-FORMULARY) (Simvastatin [Simvastatin] 20 MG) PO SCH (22:27)
[2019-11-07] MEDS: THIAMINE HCL 100 MG TABLET (FP) PO SCH (22:47)
[2019-11-07] MEDS: QUETIAPINE FUMARATE 400 MG PO SCH (22:47)
[2019-11-08] MEDS: chlordiazePOXIDE HCL 25 MG CAPSULE PO SCH ×4 (06:05→22:45)
[2019-11-08] MEDS: PATIENT'S OWN MEDICATION (NON-FORMULARY) (Metformin Hcl [Glucophage] 1,000 MG) PO SCH ×2 (06:06→17:39)
[2019-11-08] MEDS: GLIPIZIDE 5 MG PO SCH ×2 (06:08→17:40)
--- NOTE | 2019-11-08 10:19 | PN ---
[facility] CIWA - CIWA Score Nausea/Vomitin-No Nausea/No Vomiting Muscle Tremors: 2 Anxiety: 3 Agitation: 1-Slight > Activity Paroxysmal Sweats: 3 Orientation: 0-Oriented Tacttile Disturbances: 0-None Auditory Disturbances: 0-None Visual Disturbances: 0-None Headache: 2-Mild CIWA-Ar Total Score: 11 S Progress Note (SOAP) Subjective: c/o shakes, anxiety, headache, and sweats. Objective: 11/08/19 10:16 Vital Signs 11/08/19 11/08/19 11/08/19 03:30 06:40 09:04 Temperature 97.1 F L 98.9 F Pulse Rate 68 72 Respiratory 18 18 18 Rate Blood Pressure 112/68 114/77 Laboratory Last Values WBC 5.7 K/mm3 (4.0-10.0) 11/07/19 11:35 RBC 4.42 M/mm3 (4.00-5.60) 11/07/19 11:35 Hgb 13.5 GM/dL (11.7-16.9) 11/07/19 11:35 Hct 40.4 % (35.4-49) 11/07/19 11:35 MCV 91.5 fl (80-96) 11/07/19 11:35 MCH 30.5 pg (25.7-33.7) 11/07/19 11:35 MCHC 33.3 g/dl (32.0-35.9) 11/07/19 11:35 RDW 13.6 % (11.9-15.9) 11/07/19 11:35 Plt Count 242 K/MM3 (134-434) 11/07/19 11:35 MPV 8.9 fl (7.5-11.1) 11/07/19 11:35 Sodium 137 mmol/L (136-145) 11/07/19 11:35 Potassium 3.8 mmol/L (3.5-5.1) 11/07/19 11:35 Chloride 105 mmol/L (98-107) 11/07/19 11:35 Carbon Dioxide 24 mmol/L (21-32) 11/07/19 11:35 Anion Gap 9 MMOL/L (8-16) 11/07/19 11:35 BUN 7.3 mg/dL (7-18) 11/07/19 11:35 Creatinine 1.0 mg/dL (0.55-1.3) 11/07/19 11:35 Est GFR (CKD-EPI)AfAm 99.15 11/07/19 11:35 Est GFR (CKD-EPI)NonAf 85.55 11/07/19 11:35 POC Glucometer 172 UNITS (80-120) 11/08/19 06:03 Random Glucose 219 mg/dL (74-106) H 11/07/19 11:35 Calcium 9.8 mg/dL (8.5-10.1) 11/07/19 11:35 Total Bilirubin 0.5 mg/dL (0.2-1) 11/07/19 11:35 AST 40 U/L (15-37) H 11/07/19 11:35 ALT 86 U/L (13-61) H 11/07/19 11:35 Alkaline Phosphatase 56 U/L (45-117) 11/07/19 11:35 Total Protein 7.1 g/dl (6.4-8.2) 11/07/19 11:35 Albumin 3.9 g/dl (3.4-5.0) 11/07/19 11:35 RPR Titer Nonreactive (NONREACTIVE) 11/07/19 11:35 Labs noted. Assessment: 11/08/19 10:16 AOx3, in no acute respiratory distress. Full rom, ambulating in the unit. Withdrawal symptoms. Plan: continue detox.
[2019-11-08] MEDS: PATIENT'S OWN MEDICATION (NON-FORMULARY) (Losartan Potassium [Losartan Potassium] 50 MG) PO SCH (10:20)
[2019-11-08] MEDS: PRENATAL VITAMINS W/ FOLIC ACID TABLET (FP) PO SCH (10:22)
[2019-11-08] MEDS ORDERED: FLU VACCINE QUAD 60 MCG/0.5 ML (MDV 19-20) IM ONE (12:00)
[2019-11-08] MEDS: PATIENT'S OWN MEDICATION (NON-FORMULARY) (Albuterol Sulfate Inhaler - [Ventolin HFA Inhale IH PRN (19:40)
[2019-11-08] MEDS: MAG HYDROX/AL HYDROX/SIMETH 30 ML UNIT-DOSE CUP PO PRN (20:46)
[2019-11-08] MEDS: PATIENT'S OWN MEDICATION (NON-FORMULARY) (Simvastatin [Simvastatin] 20 MG) PO SCH (21:54)
[2019-11-08] MEDS: QUETIAPINE FUMARATE 400 MG PO SCH (21:54)
[2019-11-08] MEDS: THIAMINE HCL 100 MG TABLET (FP) PO SCH (21:56)
[2019-11-09] MEDS: MAG HYDROX/AL HYDROX/SIMETH 30 ML UNIT-DOSE CUP PO PRN ×2 (02:44→10:48)
[2019-11-09] MEDS: chlordiazePOXIDE HCL 25 MG CAPSULE PO SCH ×4 (05:29→22:02)
[2019-11-09] MEDS: PATIENT'S OWN MEDICATION (NON-FORMULARY) (Metformin Hcl [Glucophage] 1,000 MG) PO SCH ×2 (06:14→17:42)
[2019-11-09] MEDS: GLIPIZIDE 5 MG PO SCH ×2 (06:14→17:41)
[2019-11-09] MEDS: PATIENT'S OWN MEDICATION (NON-FORMULARY) (Losartan Potassium [Losartan Potassium] 50 MG) PO SCH (10:33)
[2019-11-09] MEDS: PRENATAL VITAMINS W/ FOLIC ACID TABLET (FP) PO SCH (10:34)
[2019-11-09] MEDS: PATIENT'S OWN MEDICATION (NON-FORMULARY) (Albuterol Sulfate Inhaler - [Ventolin HFA Inhale IH PRN (10:49)
--- NOTE | 2019-11-09 11:18 | PN ---
[facility] CIWA - CIWA Score Nausea/Vomitin-Mild Nausea/No Vomiting Muscle Tremors: 2 Anxiety: 3 Agitation: 1-Slight > Activity Paroxysmal Sweats: 2 Orientation: 0-Oriented Tacttile Disturbances: 0-None Auditory Disturbances: 0-None Visual Disturbances: 0-None Headache: 0-None Present CIWA-Ar Total Score: 9 S Progress Note (SOAP) Subjective: 53 years old male admitted on 11/07/19 for alcohol withdrawal sx management treated with librium detox regimen ate breakfast tolerated food and fluid well c/o long history heart burn taking over the counter pepcid discontinue motrin begin pepcid Objective: 11/09/19 11:16 Vital Signs Temperature 98 F 11/09/19 09:12 Pulse Rate 65 11/09/19 09:12 Respiratory Rate 18 11/09/19 09:12 Blood Pressure 126/74 11/09/19 09:12 O2 Sat by Pulse Oximetry (%) Laboratory Last Values WBC 5.7 K/mm3 (4.0-10.0) 11/07/19 11:35 RBC 4.42 M/mm3 (4.00-5.60) 11/07/19 11:35 Hgb 13.5 GM/dL (11.7-16.9) 11/07/19 11:35 Hct 40.4 % (35.4-49) 11/07/19 11:35 MCV 91.5 fl (80-96) 11/07/19 11:35 MCH 30.5 pg (25.7-33.7) 11/07/19 11:35 MCHC 33.3 g/dl (32.0-35.9) 11/07/19 11:35 RDW 13.6 % (11.9-15.9) 11/07/19 11:35 Plt Count 242 K/MM3 (134-434) 11/07/19 11:35 MPV 8.9 fl (7.5-11.1) 11/07/19 11:35 Sodium 137 mmol/L (136-145) 11/07/19 11:35 Potassium 3.8 mmol/L (3.5-5.1) 11/07/19 11:35 Chloride 105 mmol/L (98-107) 11/07/19 11:35 Carbon Dioxide 24 mmol/L (21-32) 11/07/19 11:35 Anion Gap 9 MMOL/L (8-16) 11/07/19 11:35 BUN 7.3 mg/dL (7-18) 11/07/19 11:35 Creatinine 1.0 mg/dL (0.55-1.3) 11/07/19 11:35 Est GFR (CKD-EPI)AfAm 99.15 11/07/19 11:35 Est GFR (CKD-EPI)NonAf 85.55 11/07/19 11:35 POC Glucometer 268 UNITS (80-120) 11/09/19 05:30 Random Glucose 219 mg/dL (74-106) H 11/07/19 11:35 Calcium 9.8 mg/dL (8.5-10.1) 11/07/19 11:35 Total Bilirubin 0.5 mg/dL (0.2-1) 11/07/19 11:35 AST 40 U/L (15-37) H 11/07/19 11:35 ALT 86 U/L (13-61) H 11/07/19 11:35 Alkaline Phosphatase 56 U/L (45-117) 11/07/19 11:35 Total Protein 7.1 g/dl (6.4-8.2) 11/07/19 11:35 Albumin 3.9 g/dl (3.4-5.0) 11/07/19 11:35 RPR Titer Nonreactive (NONREACTIVE) 11/07/19 11:35 lab noted long history of diabetes treated with glipizide patient is none insulin dependent diabetic Assessment: 11/09/19 11:19 alcohol withdrawal Plan: librium regimen
[2019-11-09] MEDS: FAMOTIDINE 20 MG TABLET PO SCH ×2 (12:14→22:02)
[2019-11-09] MEDS: QUETIAPINE FUMARATE 400 MG PO SCH (22:01)
[2019-11-09] MEDS: THIAMINE HCL 100 MG TABLET (FP) PO SCH (22:02)
[2019-11-09] MEDS: PATIENT'S OWN MEDICATION (NON-FORMULARY) (Simvastatin [Simvastatin] 20 MG) PO SCH (22:02)
[2019-11-10] MEDS ORDERED: chlordiazePOXIDE HCL 10 MG CAPSULE PO PRN
[2019-11-10] MEDS: chlordiazePOXIDE HCL 10 MG CAPSULE PO SCH ×5 (06:22→22:05)
[2019-11-10] MEDS: GLIPIZIDE 5 MG PO SCH ×2 (06:48→17:20)
[2019-11-10] MEDS: PATIENT'S OWN MEDICATION (NON-FORMULARY) (Metformin Hcl [Glucophage] 1,000 MG) PO SCH ×2 (06:48→17:19)
[2019-11-10] MEDS: PATIENT'S OWN MEDICATION (NON-FORMULARY) (Losartan Potassium [Losartan Potassium] 50 MG) PO SCH (09:39)
[2019-11-10] MEDS: FAMOTIDINE 20 MG TABLET PO SCH ×2 (09:39→22:04)
[2019-11-10] MEDS: PRENATAL VITAMINS W/ FOLIC ACID TABLET (FP) PO SCH (09:39)
[2019-11-10] MEDS ORDERED: SODIUM PHOSPHATE/NA BIPHOS 133 ML ENEMA PR ONE (09:40)
[2019-11-10] MEDS ORDERED: MAGNESIUM HYDROX 2400MG/30ML ORAL SUSPENSION 30 ML CUP PO ONE (10:00)
--- NOTE | 2019-11-10 10:35 | PN ---
[facility] CIWA - CIWA Score Nausea/Vomitin-No Nausea/No Vomiting Muscle Tremors: 2 Anxiety: 3 Agitation: 2 Paroxysmal Sweats: 1-Minimal Palms Moist Orientation: 0-Oriented Tacttile Disturbances: 0-None Auditory Disturbances: 0-None Visual Disturbances: 0-None Headache: 0-None Present CIWA-Ar Total Score: 8 S Progress Note (SOAP) Subjective: 53 years old male admitted on 11/07/19 for alcohol withdrawal sx management treating with librium detox regimen reports trouble move bowel abdomen soft round obese bowel sound x 4 positive fleet enema x 1 now MOM 30ml x 1 around 10 am citric 1 bottle x 1 around 2pm senna 2tabs po hs Objective: 11/10/19 10:33 Vital Signs Temperature 96.1 F L 11/10/19 09:21 Pulse Rate 82 11/10/19 09:21 Respiratory Rate 16 11/10/19 09:21 Blood Pressure 128/82 11/10/19 09:21 O2 Sat by Pulse Oximetry (%) Laboratory Last Values WBC 5.7 K/mm3 (4.0-10.0) 11/07/19 11:35 RBC 4.42 M/mm3 (4.00-5.60) 11/07/19 11:35 Hgb 13.5 GM/dL (11.7-16.9) 11/07/19 11:35 Hct 40.4 % (35.4-49) 11/07/19 11:35 MCV 91.5 fl (80-96) 11/07/19 11:35 MCH 30.5 pg (25.7-33.7) 11/07/19 11:35 MCHC 33.3 g/dl (32.0-35.9) 11/07/19 11:35 RDW 13.6 % (11.9-15.9) 11/07/19 11:35 Plt Count 242 K/MM3 (134-434) 11/07/19 11:35 MPV 8.9 fl (7.5-11.1) 11/07/19 11:35 Sodium 137 mmol/L (136-145) 11/07/19 11:35 Potassium 3.8 mmol/L (3.5-5.1) 11/07/19 11:35 Chloride 105 mmol/L (98-107) 11/07/19 11:35 Carbon Dioxide 24 mmol/L (21-32) 11/07/19 11:35 Anion Gap 9 MMOL/L (8-16) 11/07/19 11:35 BUN 7.3 mg/dL (7-18) 11/07/19 11:35 Creatinine 1.0 mg/dL (0.55-1.3) 11/07/19 11:35 Est GFR (CKD-EPI)AfAm 99.15 11/07/19 11:35 Est GFR (CKD-EPI)NonAf 85.55 11/07/19 11:35 POC Glucometer 288 UNITS (80-120) 11/10/19 06:47 Random Glucose 219 mg/dL (74-106) H 11/07/19 11:35 Calcium 9.8 mg/dL (8.5-10.1) 11/07/19 11:35 Total Bilirubin 0.5 mg/dL (0.2-1) 11/07/19 11:35 AST 40 U/L (15-37) H 11/07/19 11:35 ALT 86 U/L (13-61) H 11/07/19 11:35 Alkaline Phosphatase 56 U/L (45-117) 11/07/19 11:35 Total Protein 7.1 g/dl (6.4-8.2) 11/07/19 11:35 Albumin 3.9 g/dl (3.4-5.0) 11/07/19 11:35 RPR Titer Nonreactive (NONREACTIVE) 11/07/19 11:35 lab noted 11/10/19 10:34 long history of diabetes with glucose elevation Assessment: 11/10/19 10:35 alcohol withdrawal Plan: librium regimen
[2019-11-10] MEDS ORDERED: MAGNESIUM CITRATE 300 ML BOTTLE PO ONE (14:00)
[2019-11-10] MEDS: ACETAMINOPHEN 325 MG TABLET (FP) PO PRN (20:56)
[2019-11-10] MEDS: QUETIAPINE FUMARATE 400 MG PO SCH (22:03)
[2019-11-10] MEDS: PATIENT'S OWN MEDICATION (NON-FORMULARY) (Simvastatin [Simvastatin] 20 MG) PO SCH (22:03)
[2019-11-10] MEDS: THIAMINE HCL 100 MG TABLET (FP) PO SCH (22:05)
[2019-11-10] MEDS: SENNOSIDES 8.6MG TABLET (FP) PO SCH (22:05)
[2019-11-11] MEDS: chlordiazePOXIDE HCL 10 MG CAPSULE PO SCH ×2 (05:08→17:10)
[2019-11-11] MEDS: PATIENT'S OWN MEDICATION (NON-FORMULARY) (Metformin Hcl [Glucophage] 1,000 MG) PO SCH ×2 (06:09→17:09)
[2019-11-11] MEDS: GLIPIZIDE 5 MG PO SCH ×2 (06:09→17:09)
--- NOTE | 2019-11-11 09:49 | PN ---
[facility] CIWA - CIWA Score Nausea/Vomitin-No Nausea/No Vomiting Muscle Tremors: 1-None Visible, but [place]abella Anxiety: 2 Agitation: 0-Normal Activity Paroxysmal Sweats: 1-Minimal Palms Moist Orientation: 0-Oriented Tacttile Disturbances: 0-None Auditory Disturbances: 0-None Visual Disturbances: 0-None Headache: 0-None Present CIWA-Ar Total Score: 4 BHS Progress Note (SOAP) Subjective: 53 years old male admitted on 11/07/19 for alcohol withdrawal sx management treating with librium detox regimen feeling ok today slept through the night less tremor Objective: 11/11/19 09:46 Vital Signs Temperature 96.6 F L 11/11/19 09:09 Pulse Rate 87 11/11/19 09:09 Respiratory Rate 18 11/11/19 09:09 Blood Pressure 117/72 11/11/19 09:09 O2 Sat by Pulse Oximetry (%) Laboratory Last Values WBC 5.7 K/mm3 (4.0-10.0) 11/07/19 11:35 RBC 4.42 M/mm3 (4.00-5.60) 11/07/19 11:35 Hgb 13.5 GM/dL (11.7-16.9) 11/07/19 11:35 Hct 40.4 % (35.4-49) 11/07/19 11:35 MCV 91.5 fl (80-96) 11/07/19 11:35 MCH 30.5 pg (25.7-33.7) 11/07/19 11:35 MCHC 33.3 g/dl (32.0-35.9) 11/07/19 11:35 RDW 13.6 % (11.9-15.9) 11/07/19 11:35 Plt Count 242 K/MM3 (134-434) 11/07/19 11:35 MPV 8.9 fl (7.5-11.1) 11/07/19 11:35 Sodium 137 mmol/L (136-145) 11/07/19 11:35 Potassium 3.8 mmol/L (3.5-5.1) 11/07/19 11:35 Chloride 105 mmol/L (98-107) 11/07/19 11:35 Carbon Dioxide 24 mmol/L (21-32) 11/07/19 11:35 Anion Gap 9 MMOL/L (8-16) 11/07/19 11:35 BUN 7.3 mg/dL (7-18) 11/07/19 11:35 Creatinine 1.0 mg/dL (0.55-1.3) 11/07/19 11:35 Est GFR (CKD-EPI)AfAm 99.15 11/07/19 11:35 Est GFR (CKD-EPI)NonAf 85.55 11/07/19 11:35 POC Glucometer 280 UNITS (80-120) 11/11/19 05:10 Random Glucose 219 mg/dL (74-106) H 11/07/19 11:35 Calcium 9.8 mg/dL (8.5-10.1) 11/07/19 11:35 Total Bilirubin 0.5 mg/dL (0.2-1) 11/07/19 11:35 AST 40 U/L (15-37) H 11/07/19 11:35 ALT 86 U/L (13-61) H 11/07/19 11:35 Alkaline Phosphatase 56 U/L (45-117) 11/07/19 11:35 Total Protein 7.1 g/dl (6.4-8.2) 11/07/19 11:35 Albumin 3.9 g/dl (3.4-5.0) 11/07/19 11:35 RPR Titer Nonreactive (NONREACTIVE) 11/07/19 11:35 lab noted long history of diabetes 11/11/19 09:48 Assessment: 11/11/19 09:48 alcohol withdrawal Plan: librium regimen
[2019-11-11] MEDS: FAMOTIDINE 20 MG TABLET PO SCH ×2 (10:33→22:28)
[2019-11-11] MEDS: PRENATAL VITAMINS W/ FOLIC ACID TABLET (FP) PO SCH (10:33)
[2019-11-11] MEDS: PATIENT'S OWN MEDICATION (NON-FORMULARY) (Losartan Potassium [Losartan Potassium] 50 MG) PO SCH (10:33)
[2019-11-11] MEDS: ACETAMINOPHEN 325 MG TABLET (FP) PO PRN ×2 (10:35→22:30)
[2019-11-11] MEDS: MENTHOL/PHENOL 1 EACH UD MM PRN (14:39)
[2019-11-11] MEDS: PATIENT'S OWN MEDICATION (NON-FORMULARY) (Albuterol Sulfate Inhaler - [Ventolin HFA Inhale IH PRN (20:02)
[2019-11-11] MEDS: SENNOSIDES 8.6MG TABLET (FP) PO SCH (22:28)
[2019-11-11] MEDS: PATIENT'S OWN MEDICATION (NON-FORMULARY) (Simvastatin [Simvastatin] 20 MG) PO SCH (22:28)
[2019-11-11] MEDS: QUETIAPINE FUMARATE 400 MG PO SCH (22:29)
[2019-11-11] MEDS: THIAMINE HCL 100 MG TABLET (FP) PO SCH (22:30)
[2019-11-12] MEDS ORDERED: chlordiazePOXIDE HCL 10 MG CAPSULE PO ONE (05:00)
[2019-11-12] MEDS: GLIPIZIDE 5 MG PO SCH ×2 (07:40→16:45)
[2019-11-12] MEDS: PATIENT'S OWN MEDICATION (NON-FORMULARY) (Metformin Hcl [Glucophage] 1,000 MG) PO SCH ×2 (07:41→16:44)
[2019-11-12] MEDS: PATIENT'S OWN MEDICATION (NON-FORMULARY) (Losartan Potassium [Losartan Potassium] 50 MG) PO SCH (10:22)
[2019-11-12] MEDS: PRENATAL VITAMINS W/ FOLIC ACID TABLET (FP) PO SCH (10:22)
[2019-11-12] MEDS: FAMOTIDINE 20 MG TABLET PO SCH ×2 (10:22→21:48)
[2019-11-12] MEDS: ACETAMINOPHEN 325 MG TABLET (FP) PO PRN ×2 (10:23→16:43)
[2019-11-12] MEDS: MENTHOL/PHENOL 1 EACH UD MM PRN (10:24)
[2019-11-12] MEDS: PATIENT'S OWN MEDICATION (NON-FORMULARY) (Albuterol Sulfate Inhaler - [Ventolin HFA Inhale IH PRN ×2 (10:25→21:51)
--- NOTE | 2019-11-12 10:39 | PN ---
[facility] CIWA - CIWA Score Nausea/Vomitin-No Nausea/No Vomiting Muscle Tremors: 1-None Visible, but [place] Anxiety: 1-Mildly Anxious Agitation: 0-Normal Activity Paroxysmal Sweats: No Perspiration Orientation: 0-Oriented Tacttile Disturbances: 0-None Auditory Disturbances: 0-None Visual Disturbances: 0-None Headache: 0-None Present CIWA-Ar Total Score: 2 S Progress Note (SOAP) Subjective: 53 years old male admitted on 11/07/19 for alcohol withdrawal sx management treating with librium detox regimen feelings better today fears of drinking alcohol when home with family emotional assurance given discuss behavior and psychosocial therapies Objective: 11/12/19 10:38 Vital Signs Temperature 96.9 F L 11/12/19 09:26 Pulse Rate 90 11/12/19 09:26 Respiratory Rate 20 11/12/19 09:26 Blood Pressure 129/82 11/12/19 09:26 O2 Sat by Pulse Oximetry (%) Laboratory Last Values WBC 5.7 K/mm3 (4.0-10.0) 11/07/19 11:35 RBC 4.42 M/mm3 (4.00-5.60) 11/07/19 11:35 Hgb 13.5 GM/dL (11.7-16.9) 11/07/19 11:35 Hct 40.4 % (35.4-49) 11/07/19 11:35 MCV 91.5 fl (80-96) 11/07/19 11:35 MCH 30.5 pg (25.7-33.7) 11/07/19 11:35 MCHC 33.3 g/dl (32.0-35.9) 11/07/19 11:35 RDW 13.6 % (11.9-15.9) 11/07/19 11:35 Plt Count 242 K/MM3 (134-434) 11/07/19 11:35 MPV 8.9 fl (7.5-11.1) 11/07/19 11:35 Sodium 137 mmol/L (136-145) 11/07/19 11:35 Potassium 3.8 mmol/L (3.5-5.1) 11/07/19 11:35 Chloride 105 mmol/L (98-107) 11/07/19 11:35 Carbon Dioxide 24 mmol/L (21-32) 11/07/19 11:35 Anion Gap 9 MMOL/L (8-16) 11/07/19 11:35 BUN 7.3 mg/dL (7-18) 11/07/19 11:35 Creatinine 1.0 mg/dL (0.55-1.3) 11/07/19 11:35 Est GFR (CKD-EPI)AfAm 99.15 11/07/19 11:35 Est GFR (CKD-EPI)NonAf 85.55 11/07/19 11:35 POC Glucometer 358 UNITS (80-120) 11/12/19 05:45 Random Glucose 219 mg/dL (74-106) H 11/07/19 11:35 Calcium 9.8 mg/dL (8.5-10.1) 11/07/19 11:35 Total Bilirubin 0.5 mg/dL (0.2-1) 11/07/19 11:35 AST 40 U/L (15-37) H 11/07/19 11:35 ALT 86 U/L (13-61) H 11/07/19 11:35 Alkaline Phosphatase 56 U/L (45-117) 11/07/19 11:35 Total Protein 7.1 g/dl (6.4-8.2) 11/07/19 11:35 Albumin 3.9 g/dl (3.4-5.0) 11/07/19 11:35 RPR Titer Nonreactive (NONREACTIVE) 11/07/19 11:35 lab noted health teaching on risks of glucose elevation Assessment: 11/12/19 10:39 alcohol withdrawal Plan: librium regimen
[2019-11-12] MEDS: QUETIAPINE FUMARATE 400 MG PO SCH (21:47)
[2019-11-12] MEDS: THIAMINE HCL 100 MG TABLET (FP) PO SCH (21:48)
[2019-11-12] MEDS: PATIENT'S OWN MEDICATION (NON-FORMULARY) (Simvastatin [Simvastatin] 20 MG) PO SCH (21:48)
[2019-11-12] MEDS: SENNOSIDES 8.6MG TABLET (FP) PO SCH (21:49)
[2019-11-13] MEDS: BISMUTH SUBSALICYLATE 524 MG/30 ML UD PO PRN ×2 (02:18→04:36)
[2019-11-13] MEDS: PATIENT'S OWN MEDICATION (NON-FORMULARY) (Metformin Hcl [Glucophage] 1,000 MG) PO SCH (08:45)
[2019-11-13] MEDS: GLIPIZIDE 5 MG PO SCH (08:46)
[2019-11-13 09:12] VITALS: BP 123/78; PULSE 88; TEMP 97.1
[2019-11-13] MEDS: PATIENT'S OWN MEDICATION (NON-FORMULARY) (Albuterol Sulfate Inhaler - [Ventolin HFA Inhale IH PRN (09:42)
[2019-11-13] MEDS: ACETAMINOPHEN 325 MG TABLET (FP) PO PRN (09:42)
[2019-11-13] MEDS: FAMOTIDINE 20 MG TABLET PO SCH (09:43)
[2019-11-13] MEDS: PATIENT'S OWN MEDICATION (NON-FORMULARY) (Losartan Potassium [Losartan Potassium] 50 MG) PO SCH (09:43)
[2019-11-13] MEDS: PRENATAL VITAMINS W/ FOLIC ACID TABLET (FP) PO SCH (09:43)
--- NOTE | 2019-11-13 14:32 | DS ---
[facility] Detox Discharge Summary Admission Date: 11/07/19 Discharge Date: 11/13/19 - History Present History: Alcohol Dependence Additional Comments: 53 years old male admitted on 11/07/19 for alcohol withdrawal sx management treated with librium detox regimen patient tolerated well alert oriented x 3 estimated discharge date was 11/12/19 patient fears of relapse and anxious about transportation to chemical dependent rehab facility case discussed with the nurse and the counselor that delay discharge date from to 11/13/19 appears necessary at this time cardiac s1s2 regular rate rhythm respiratory clear lungs bilaterally on auscultation extremities full range of motion Pertinent Past History: transportation [facility] arranged by the counselor - Physical Exam Results Vital Signs: Vital Signs Temperature 97.1 F L 11/13/19 09:12 Pulse Rate 88 11/13/19 09:12 Respiratory Rate 18 11/13/19 09:12 Blood Pressure 123/78 11/13/19 09:12 O2 Sat by Pulse Oximetry (%) Pertinent Admission Physical Exam Findings: alcohol withdrawal Laboratory Last Values WBC 5.7 K/mm3 (4.0-10.0) 11/07/19 11:35 RBC 4.42 M/mm3 (4.00-5.60) 11/07/19 11:35 Hgb 13.5 GM/dL (11.7-16.9) 11/07/19 11:35 Hct 40.4 % (35.4-49) 11/07/19 11:35 MCV 91.5 fl (80-96) 11/07/19 11:35 MCH 30.5 pg (25.7-33.7) 11/07/19 11:35 MCHC 33.3 g/dl (32.0-35.9) 11/07/19 11:35 RDW 13.6 % (11.9-15.9) 11/07/19 11:35 Plt Count 242 K/MM3 (134-434) 11/07/19 11:35 MPV 8.9 fl (7.5-11.1) 11/07/19 11:35 Sodium 137 mmol/L (136-145) 11/07/19 11:35 Potassium 3.8 mmol/L (3.5-5.1) 11/07/19 11:35 Chloride 105 mmol/L (98-107) 11/07/19 11:35 Carbon Dioxide 24 mmol/L (21-32) 11/07/19 11:35 Anion Gap 9 MMOL/L (8-16) 11/07/19 11:35 BUN 7.3 mg/dL (7-18) 11/07/19 11:35 Creatinine 1.0 mg/dL (0.55-1.3) 11/07/19 11:35 Est GFR (CKD-EPI)AfAm 99.15 11/07/19 11:35 Est GFR (CKD-EPI)NonAf 85.55 11/07/19 11:35 POC Glucometer 304 UNITS (80-120) 11/12/19 16:33 Random Glucose 219 mg/dL (74-106) H 11/07/19 11:35 Calcium 9.8 mg/dL (8.5-10.1) 11/07/19 11:35 Total Bilirubin 0.5 mg/dL (0.2-1) 11/07/19 11:35 AST 40 U/L (15-37) H 11/07/19 11:35 ALT 86 U/L (13-61) H 11/07/19 11:35 Alkaline Phosphatase 56 U/L (45-117) 11/07/19 11:35 Total Protein 7.1 g/dl (6.4-8.2) 11/07/19 11:35 Albumin 3.9 g/dl (3.4-5.0) 11/07/19 11:35 RPR Titer Nonreactive (NONREACTIVE) 11/07/19 11:35 lab noted - Treatment Hospital Course: Detox Protocol Followed, Detoxed Safely, Responded well, Discharged Condition Good, Rehab Referral Accepted Patient has Accepted a Rehab Referral to: [facility] chemical dependent out patient - Medication Discharge Medications: Ambulatory Orders Albuterol Sulfate Inhaler - [Ventolin HFA Inhaler -] 2 puff IH QID PRN 05/06/19 Losartan Potassium 50 mg PO DAILY 05/06/19 Metformin HCl [Glucophage] 1,000 mg PO BID 05/06/19 Simvastatin 20 mg PO HS 05/06/19 Fluticasone/Salmeterol [Advair 250-50 Diskus] 1 each IH DAILY 11/07/19 Glipizide 5 mg PO BID 11/07/19 Quetiapine Fumarate [Seroquel -] 400 mg PO HS 11/07/19 - Diagnosis (1) Alcohol dependence with uncomplicated withdrawal Status: Acute (2) Asthma Status: Chronic Qualifiers: Asthma severity: mild Asthma persistence: intermittent Asthma complication type: with status asthmaticus Qualified Code(s): J45.22 - Mild intermittent asthma with status asthmaticus (3) Diabetes type 2, controlled Status: Chronic Qualifiers: Diabetes mellitus long-term insulin use: unspecified long-term insulin use status Diabetes mellitus complication status: without complication Qualified Code(s): E11.9 - Type 2 diabetes mellitus without complications (4) GERD (gastroesophageal reflux disease) Status: Chronic Qualifiers: Esophagitis presence: without esophagitis Qualified Code(s): K21.9 - Gastro -esophageal reflux disease without esophagitis (5) Hyperlipidemia Status: Chronic Qualifiers: Hyperlipidemia type: pure hypercholesterolemia Qualified Code(s): E78.00 - Pure hypercholesterolemia, unspecified; E78.0 - Pure hypercholesterolemia (6) Hypertension Status: Chronic Qualifiers: Hypertension type: essential hypertension Qualified Code(s): I10 - Essential (primary) hypertension (7) Obese Status: Chronic Qualifiers: Obesity type: unspecified obesity type Obesity classification: adult class 2 (BMI 35 - 39.9) Serious obesity comorbidity presence: without serious comorbidity Body mass index: BMI 37.0-37.9 Qualified Code(s): E66.9 - Obesity, unspecified; Z68.37 - Body mass index (BMI) 37.0-37.9, adult (8) Substance induced mood disorder Status: Suspected - AMA Did Patient Leave Against Medical Advice: No CIWA Score - CIWA Score Nausea/Vomitin-No Nausea/No Vomiting Muscle Tremors: None Anxiety: 0-No Anxiety, at Ease Agitation: 0-Normal Activity Paroxysmal Sweats: No Perspiration Orientation: 0-Oriented Tacttile Disturbances: 0-None Auditory Disturbances: 0-None Visual Disturbances: 0-None Headache: 0-None Present CIWA-Ar Total Score: 0
== END 2019-11-13 10:26 | disposition home or self-care (01) | DRG 897 ==
LOC: YASAS 10:26 → Y3N 11:45
PROVIDERS: ADMIT Allergy & Immunology; ATTEND Allergy & Immunology
PROC: HZ2ZZZZ Detoxification Services for Substance Abuse Treatment (ICD-10-PCS; principal; 2019-11-07)
DX: F10.230 Alcohol dependence with withdrawal, uncomplicated (principal); J45.22 Mild intermittent asthma with status asthmaticus; F19.24 Other psychoactive substance dependence with psychoactive substance-induced mood disorder; F25.9 Schizoaffective disorder, unspecified; I10 Essential (primary) hypertension; E78.5 Hyperlipidemia, unspecified; E11.9 Type 2 diabetes mellitus without complications; K21.9 Gastro-esophageal reflux disease without esophagitis; G47.00 Insomnia, unspecified; E66.9 Obesity, unspecified; Z68.36 Body mass index [BMI] 36.0-36.9, adult; Z88.8 Allergy status to other drugs, medicaments and biological substances; Z79.84 Long term (current) use of oral hypoglycemic drugs
CPT/HCPCS: 36415; 80053; 82962; 85027; 86593; G0008; Q2036

== ENCOUNTER 2020-07-09 12:41 | Inpatient (IN) | payer OTHER ==
--- NOTE | 2020-07-09 13:18 | BHS.RME ---
Substance Use & Tx History - Substance Use History Alcohol Substance amount: 2 six pack beers + 1/2 pint vodka Frequency of use: Daily Substance route: Oral Date of Last Use: 07/09/20 (1 beer at 9AM) Cocaine- Powder Substance amount: $40 Frequency of use: Less than 3 times per week Substance route: Inhalation (ex: sniffing or snorting) Date of Last Use: 07/07/20 - Last Treatment Date of last treatment: 2018 Treatment type: Substance Use Disorder ([place]) Where was last treatment: Detox Physical/Psych/Mental Status - Behavior General Behavior: Increased activity (restlessness, agitation) Eye Contact: Normal - Cooperativeness Cooperativeness: Cooperative - Thinking Thought Processes: Tight, Logical, Goal Directed - Physical Health Problems Is patient presently having any pain?: No Does patient presently have any injuries (include location): No Does patient currently have a fever: No Is patient : No CIWA Nausea/Vomitin-Int. Nausea w/Dry Heave Muscle Tremors: 4-Moderate,w/Arms Extend Anxiety: 4-Mod. Anxious/Guarded Agitation: 4-Moderately Restless Paroxysmal Sweats: 4-Forehead w/Sweat Beads Orientation: 0-Oriented Tacttile Disturbances: 0-None Auditory Disturbances: 0-None Visual Disturbances: 0-None Headache: 0-None Present CIWA-Ar Total Score: 20
[2020-07-09 14:33] VITALS: BMI 35.4
--- NOTE | 2020-07-09 14:33 | HP ---
CIWA Score Nausea/Vomitin-Int. Nausea w/Dry Heave Muscle Tremors: 4-Moderate,w/Arms Extend Anxiety: 4-Mod. Anxious/Guarded Agitation: 4-Moderately Restless Paroxysmal Sweats: 4-Forehead w/Sweat Beads Orientation: 0-Oriented Tacttile Disturbances: 0-None Auditory Disturbances: 0-None Visual Disturbances: 0-None Headache: 0-None Present CIWA-Ar Total Score: 20 - Admission Criteria OASAS Guidelines: Admission for Medically Managed Detox: Requires at least one of the followin. CIWA greater than 12 2. Seizures within the past 24 hours 3. Delirium tremens within the past 24 hours 4. Hallucinations within the past 24 hours 5. Acute intervention needed for co occurring medical disorder 6. Acute intervention needed for co occurring psychiatric disorder 7. Severe withdrawal that cannot be handled at a lower level of care (continued vomiting, continued diarrhea, abnormal vital signs) requiring intravenous medication and/or fluids 8. Admitting History and Physical - Admission Chief Complaint: drinking too much History of Present Illness: Patient is a 54 y/o male with a history of HTN, HLD, pre- DM, and asthma who is here for detox from Alcohol. Started drinking when he was 21 years old. Drinks 2 six packs of budwiser and sometimes half a pint of vodka. Drink every day, requires an eye law enforcement instructor. Was sober for 6 months. never had a seizure.One time black out. Has been to rehab 4 times. Uses cocaine, but not everyday. Just on the weekends. - Substance Use History Alcohol Substance amount: 2 six pack beers + 1/2 pint vodka Frequency of use: Daily Substance route: Oral Date of Last Use: 07/09/20 (1 beer at 9AM) Cocaine- Powder Substance amount: $40 Frequency of use: Less than 3 times per week Substance route: Inhalation (ex: sniffing or snorting) Date of Last Use: 07/07/20 - Last Treatment Date of last treatment: 2018 Treatment type: Substance Use Disorder (NICKY) Where was last treatment: Detox Patient reports he had a headache today. Lives in an apartment in the [place]. Patient mets inpatient criteria for alcohol detox, requires an eyeopener in the morning. 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 History of Recent Travel: No Admission ROS S - HPI Allergies/Adverse Reactions: Allergies Allergy/AdvReac Type Severity Reaction Status Date / Time Penicillins Allergy Intermediate Rash Verified 07/09/20 14:59 - Review of Systems Constitutional: Other (headache) Patient History - Patient Medical History Hx Anemia: No Hx Asthma: Yes Hx Chronic Obstructive Pulmonary Disease (COPD): No Hx Cancer: No Hx Cardiac Disorders: No Hx Congestive Heart Failure: No Hx Hypertension: Yes Hx Hypercholesterolemia: Yes (TAKES MEDICATION ) Hx Pacemaker: No HX Cerebrovascular Accident: No Hx Seizures: No Hx Dementia: No Hx Diabetes: No Hx Gastrointestinal Disorders: No Hx Liver Disease: No Hx Genitourinary Disorders: No Hx Sexually Transmitted Disorders: No Hx Renal Disease (ESRD): No Hx Thyroid Disease: No Hx Human Immunodeficiency Virus (HIV): No Hx Hepatitis C: No Hx Depression: Yes Hx Suicide Attempt: Yes (9 YEARS AGO ATTEMPTED TO SLIT HIS WRISTS ) Hx Bipolar Disorder: Yes Hx Schizophrenia: Yes - Patient Surgical History Past Surgical History: No Hx Neurologic Surgery: No Hx Cataract Extraction: No Hx Cardiac Surgery: No Hx Lung Surgery: No Hx Breast Surgery: No Hx Breast Biopsy: No Hx Abdominal Surgery: No Hx Appendectomy: No Hx Cholecystectomy: No Hx Genitourinary Surgery: No Hx Section: No Hx Orthopedic Surgery: No Anesthesia Reaction: No - PPD History Date: 05/08/19 Results: negative - Smoking Cessation Smoking history: Never smoked Have you smoked in the past 12 months: No Hx Chewing Tobacco Use: No - Substances abused Alcohol Substance route: Oral Frequency: Daily Amount used: half pint vodka/ 2 6pack Age of first use: 21 Date of last use: 07/09/20 Cocaine Substance route: Inhalation Frequency: 1-2 times per week Amount used: $40 Age of first use: 32 Date of last use: 07/07/20 Admission Physical Exam S - Physical General Appearance: Yes: No Apparent Distress, Obese Respiratory: Yes: No Respiratory Distress, No Accessory Muscle Use, Wheezing (upper airway) Cardiology: Yes: Regular Rhythm, Regular Rate Abdominal: Yes: Non Tender Extremities: Yes: Normal Inspection, Normal Range of Motion - Diagnostic (1) Alcohol dependence with uncomplicated withdrawal Current Visit: Yes Status: Acute (2) Asthma Current Visit: Yes Status: Chronic Qualifiers: Asthma severity: mild Asthma persistence: intermittent Asthma complication type: with status asthmaticus Qualified Code(s): J45.22 - Mild intermittent asthma with status asthmaticus (3) Hyperlipidemia Current Visit: No Status: Chronic Qualifiers: Hyperlipidemia type: pure hypercholesterolemia Qualified Code(s): E78.00 - Pure hypercholesterolemia, unspecified; E78.0 - Pure hypercholesterolemia (4) Hypertension Current Visit: No Status: Chronic Qualifiers: Hypertension type: essential hypertension Qualified Code(s): I10 - Essential (primary) hypertension (5) Schizoaffective disorder Current Visit: No Status: Chronic Breathalyzer - Breathalyzer Breathalyzer: 0 Vital Signs - Vital Signs Vital signs refused: No Temperature: 98.2 F Temperature source: Oral Pulse Rate: 96 Respiratory Rate: 20 Blood Pressure: 132/92 - Height Height: 5 ft 7 in - Weight Weight: 102.512 kg - BMI Body Mass Index (BMI): 35.4 Urine Drug Screen - Test Device Lot number: [id number] Expiration date: 06/15/22 - Control Is test valid?: Yes - Results Drug screen NEGATIVE: No Urine drug screen results: JAMESON-Cocaine Inpatient Rehab Admission - Rehab Decision to Admit Inpatient rehab admission?: No
[2020-07-09] MEDS ORDERED: ONDANSETRON *ODT* 4 MG TABLET SL ONE (14:36)
[2020-07-09] MEDS ORDERED: METHOCARBAMOL 500 MG TABLET PO PRN (14:36)
[2020-07-09] MEDS ORDERED: MAGNESIUM HYDROX 2400MG/30ML ORAL SUSPENSION 30 ML CUP PO PRN (14:36)
[2020-07-09] MEDS ORDERED: chlordiazePOXIDE HCL 25 MG CAPSULE PO PRN (14:36)
[2020-07-09] MEDS ORDERED: MAGNESIUM CITRATE 300 ML BOTTLE PO PRN (14:36)
[2020-07-09] MEDS ORDERED: IBUPROFEN 400 MG TABLET (FP) PO PRN (14:36)
[2020-07-09] MEDS ORDERED: ACETAMINOPHEN 325 MG TABLET (FP) PO PRN ×2 (14:36)
[2020-07-09] MEDS ORDERED: MENTHOL/PHENOL 1 EACH UD MM PRN (14:36)
[2020-07-09] MEDS ORDERED: BISMUTH SUBSALICYLATE 524 MG/30 ML UD PO PRN (14:36)
[2020-07-09] MEDS ORDERED: ALBUTEROL SO4 HFA INHALER IH PRN (14:39)
[2020-07-09] MEDS: PRENATAL VITAMINS W/ FOLIC ACID TABLET (FP) PO SCH (15:54)
[2020-07-09] MEDS: metFORMIN HCL 500 MG TABLET (FP) PO SCH (17:01)
[2020-07-09] MEDS: glipiZIDE 5 MG TABLET (FP) PO SCH (17:02)
[2020-07-09] MEDS: hydrOXYzine PAMOATE 25 MG CAPSULE (FP) PO SCH ×2 (17:02→22:23)
[2020-07-09] MEDS: chlordiazePOXIDE HCL 25 MG CAPSULE PO SCH ×2 (17:02→22:22)
--- NOTE | 2020-07-09 17:20 | CONSULT ---
[facility] Psychiatric Consult - Data Date of interview: 07/09/20 Admission source: [facility] Identifying data: Readmission to [facility] at [address] [place] [address] for this 54 y/o male, self-referred for detoxification treatment. NICKY issues : alcohol, cocaine. Patient is single, father of two, domiciled, unemployed and supported on [facility] benefits. Substance Abuse History: Smoking history: Never smoked. Have you smoked in the past 12 months: No. Hx Chewing Tobacco Use: No. Substances abused. Alcohol. Substance route: Oral. Frequency: Daily. Amount used: half pint vodka/ 2 6pack. Age of first use: 21. Date of last use: 07/09/20. Cocaine. Substance route: Inhalation. Frequency: 1-2 times per week. Amount used: $40. Age of first use: 32. Date of last use: 07/07/20. History of multiple NICKY treatment failures. Medical History: Medical profile remains remarkable for bronchial asthma, hypertension, dyslipidemia, pre-diabetes mellitus, GERD and obesity. Noted report of allergy to penicillins. Psychiatric History: Long standing history of psychiatric illness : onset of disturbances (auditory hallucinations with suicidal commands) occurred in 2008. Patient presents with a profile of multiple psychiatric hospitalizations. Mr Torres has received psychiatric inpatient care at several institutions, which include : [facility] (no longer in existence) + [facility] (closed down) + [facility] + [facility] + [facility] + [facility] + [facility]. Diagnosed with Scizoaffective Disorder. Patient is still receiving outpatient psychiatric care at the [facility] clinic in [place], [place]. Maintenance medications : seroquel 400 mg/hs. Suicide history is remarkable for an account of three attempts (self- mutilation, ingestion of bleach, deliberate jump into the path of oncoming traffic). Most recent attempt (wrist-cutting) occurred 5 years ago, as per self- report. Patient endorses adequate adherence to OPD care. Physical/Sexual Abuse/Trauma History: Patient denies. Additional Comment: Urine drug screen results: JAMESON-Cocaine. Noted. Mental Status Exam - Mental Status Exam Alert and Oriented to: Time, Place, Person Cognitive Function: Good Patient Appearance: Well Groomed Mood: Anxious (midly anxious), Hopeful Affect: Appropriate, Mood Congruent, Normal Range Patient Behavior: Fatigued, Appropriate, Cooperative Speech Pattern: Clear, Appropriate Voice Loudness: Normal Thought Process: Intact, Goal Oriented Thought Disorder: Not Present Hallucinations: Denies Suicidal Ideation: Denies Homicidal Ideation: Denies Insight/Judgement: Poor Sleep: Poorly, Difficulty falling asleep Appetite: Good Gait/Station: Normal Psychiatric Findings - Problem List (Gordon 1, 2,3) (1) Alcohol dependence with uncomplicated withdrawal Current Visit: Yes Status: Acute (2) Cocaine use disorder Current Visit: Yes Status: Chronic (3) Substance induced mood disorder Current Visit: Yes Status: Chronic (4) Schizoaffective disorder Current Visit: Yes Status: Chronic (5) Insomnia Current Visit: Yes Status: Chronic - Initial Treatment Plan Initial Treatment Plan: Psychoeducation. Sleep hygiene. Support. Detoxification in progress. Resumed : seroquel 300 mg po hs (reduced as a precaution against oversedation). Side effects/benefits are discussed with the patient. Mr Torres grants consent (verbal) to . Telephone contact ([phone]) is made with pharmacist (by administrative underwriter) at [facility] for verification of medications : scripts for lamotrigine 100 mg/daily + seroquel 400 mg/hs + zoloft 100 mg/daily have been picked up as recently as 07/01/20. Observation.
[2020-07-09] MEDS: MAG HYDROX/AL HYDROX/SIMETH 30 ML UNIT-DOSE CUP PO PRN (20:12)
[2020-07-09] MEDS ORDERED: QUEtiapine FUMARATE 100 MG TABLET (FP) PO SCH (22:00)
[2020-07-09] MEDS: MELATONIN 5 MG TABLETS PO SCH (22:21)
[2020-07-09] MEDS: ATORVASTATIN CA 10 MG TABLET (FP) PO SCH (22:21)
[2020-07-09] MEDS: THIAMINE HCL 100 MG TABLET (FP) PO SCH (22:22)
[2020-07-09] MEDS: BUDESONIDE/FORMETEROL FUMARATE 80/4.5 mcg INHALER IH SCH (22:24)
[2020-07-10] MEDS: hydrOXYzine PAMOATE 25 MG CAPSULE (FP) PO SCH ×5 (05:54→22:33)
[2020-07-10] MEDS: chlordiazePOXIDE HCL 25 MG CAPSULE PO SCH ×5 (05:54→22:59)
[2020-07-10] MEDS: glipiZIDE 5 MG TABLET (FP) PO SCH ×2 (08:37→18:44)
[2020-07-10] MEDS: metFORMIN HCL 500 MG TABLET (FP) PO SCH ×2 (08:38→18:43)
--- NOTE | 2020-07-10 10:23 | PN ---
S CIWA - CIWA Score Nausea/Vomitin-No Nausea/No Vomiting Muscle Tremors: 2 Anxiety: 3 Agitation: 1-Slight > Activity Paroxysmal Sweats: 3 Orientation: 0-Oriented Tacttile Disturbances: 0-None Auditory Disturbances: 0-None Visual Disturbances: 0-None Headache: 2-Mild CIWA-Ar Total Score: 11 BHS Progress Note (SOAP) Subjective: c/o sweats, headache, shakes, and anxiety. Objective: 07/10/20 10:22 Vital Signs 07/10/20 07/10/20 05:43 08:53 Temperature 97.1 F L 98.2 F Pulse Rate 58 L 69 Respiratory 19 18 Rate Blood Pressure 110/69 118/72 O2 Sat by Pulse 95 Oximetry (%) Labs pending. Assessment: 07/10/20 10:23 AOX3, in no acute respiratory distress. Full ROM, ambulating in the unit. Withdrawal symptoms. Plan: continue detox.
[2020-07-10] MEDS: LOSARTAN POTASSIUM 50 MG TABLET (FP) PO SCH (10:55)
[2020-07-10] MEDS: PRENATAL VITAMINS W/ FOLIC ACID TABLET (FP) PO SCH (10:55)
[2020-07-10] MEDS: BUDESONIDE/FORMETEROL FUMARATE 80/4.5 mcg INHALER IH SCH ×2 (10:56→22:31)
[2020-07-10 12:27] LABS: HEMATOCRIT 39.7 % (35.4-49); HEMOGLOBIN 13.2 GM/dL (11.7-16.9); MCH 30.3 pg (25.7-33.7); MCHC 33.2 g/dl (32.0-35.9); MEAN CELL VOLUME 91.2 fl (80-96); MEAN PLT VOLUME 8.8 fl (7.5-11.1); PLATELET COUNT 232 K/MM3 (134-434); RBC 4.36 M/mm3 (4.00-5.60); RDW 13.9 % (11.9-15.9); WHITE BLOOD COUNT 6.8 K/mm3 (4.0-10.0)
[2020-07-10 12:46] LABS: ALBUMIN 3.5 g/dl (3.4-5.0); BLOOD UREA NITROGEN 11.4 mg/dL (7-18); CALCIUM 9.2 mg/dL (8.5-10.1); POTASSIUM 4.2 mmol/L (3.5-5.1)
[2020-07-10 12:51] LABS: BILIRUBIN,TOTAL 0.4 mg/dL (0.2-1); CREATININE 0.7 mg/dL (0.55-1.3); TOT PROT 6.8 g/dl (6.4-8.2)
--- NOTE | 2020-07-10 18:00 | PN ---
HAKAN Progress Note Note: Psychiatry Attending's note (follow-up) : Met with patient. Mr Torres requests to be on his usual dose of seroquel. That is, 400 mg po at bedtime. Patient is re-evaluated. He is visible on the unit, active, ambulatory and sociable. Maintains adequate level of personal hygiene. Steady gait. Cognition is intact. Patient is friendly, well-mannered on approach. Doing well. Seroquel is now raised to 400 mg po hs. Consent granted.
[2020-07-10] MEDS: QUEtiapine FUMARATE 200 MG TABLET PO SCH (22:32)
[2020-07-10] MEDS: ATORVASTATIN CA 10 MG TABLET (FP) PO SCH (22:32)
[2020-07-10] MEDS: THIAMINE HCL 100 MG TABLET (FP) PO SCH (22:33)
[2020-07-10] MEDS: MELATONIN 5 MG TABLETS PO SCH (22:33)
[2020-07-11] MEDS: chlordiazePOXIDE HCL 25 MG CAPSULE PO SCH ×4 (06:28→22:25)
[2020-07-11] MEDS: hydrOXYzine PAMOATE 25 MG CAPSULE (FP) PO SCH ×2 (06:28→10:37)
[2020-07-11] MEDS: metFORMIN HCL 500 MG TABLET (FP) PO SCH ×2 (06:28→17:58)
[2020-07-11] MEDS: glipiZIDE 5 MG TABLET (FP) PO SCH ×2 (06:29→17:58)
[2020-07-11] MEDS: BUDESONIDE/FORMETEROL FUMARATE 80/4.5 mcg INHALER IH SCH ×2 (10:37→22:26)
[2020-07-11] MEDS: LOSARTAN POTASSIUM 50 MG TABLET (FP) PO SCH (10:37)
[2020-07-11] MEDS: PRENATAL VITAMINS W/ FOLIC ACID TABLET (FP) PO SCH (10:37)
--- NOTE | 2020-07-11 12:22 | PN ---
[facility] CIWA - CIWA Score Nausea/Vomitin-Mild Nausea/No Vomiting Muscle Tremors: 3 Anxiety: 2 Agitation: 1-Slight > Activity Paroxysmal Sweats: No Perspiration Orientation: 0-Oriented Tacttile Disturbances: 0-None Auditory Disturbances: 0-None Visual Disturbances: 2-Mild Sensitivity Headache: 0-None Present CIWA-Ar Total Score: 9 S Progress Note (SOAP) Subjective: 54 years old male was admitted on 07/09/20 for alcohol withdrawal sx management treating with librium detox regiment sitting on the edge of the bed eating lunch long medical history of diabetes order bgm with insulin coverage feels tired and sleepy discontinue vistaril Objective: 07/11/20 12:24 Vital Signs - 24 hr 07/10/20 07/10/20 07/10/20 12:42 16:16 20:34 Temperature 98.6 F 97.1 F L 97.3 F L Pulse Rate 98 H 62 63 Respiratory 18 18 18 Rate Blood Pressure 112/56 L 122/77 151/86 O2 Sat by Pulse 96 98 Oximetry (%) 07/11/20 07/11/20 07:11 08:40 Temperature 97.5 F L 97.1 F L Pulse Rate 70 69 Respiratory 18 18 Rate Blood Pressure 98/61 125/79 O2 Sat by Pulse 95 Oximetry (%) Laboratory Tests 07/09/20 07/09/20 07/09/20 15:18 15:20 17:00 WBC RBC Hgb Hct MCV MCH MCHC RDW Plt Count MPV Sodium Potassium Chloride Carbon Dioxide Anion Gap BUN Creatinine Est GFR (CKD-EPI)AfAm Est GFR (CKD-EPI)NonAf POC Glucometer 198 129 Random Glucose Calcium Total Bilirubin AST ALT Alkaline Phosphatase Total Protein Albumin Syphilis Serology COVID-19 (MEENU) Not detected HIV Ag/Ab Combo Qual 07/10/20 07/10/20 07/10/20 05:55 07:50 07:50 WBC 6.8 RBC 4.36 Hgb 13.2 Hct 39.7 MCV 91.2 MCH 30.3 MCHC 33.2 RDW 13.9 Plt Count 232 MPV 8.8 Sodium 137 Potassium 4.2 Chloride 102 Carbon Dioxide 25 Anion Gap 10 BUN 11.4 Creatinine 0.7 Est GFR (CKD-EPI)AfAm 124.00 Est GFR (CKD-EPI)NonAf 106.99 POC Glucometer 185 Random Glucose 135 H Calcium 9.2 Total Bilirubin 0.4 AST 49 H ALT 71 H Alkaline Phosphatase 57 Total Protein 6.8 Albumin 3.5 Syphilis Serology COVID-19 (MEENU) HIV Ag/Ab Combo Qual 07/10/20 07/10/20 07/10/20 07:50 07:50 16:55 WBC RBC Hgb Hct MCV MCH MCHC RDW Plt Count MPV Sodium Potassium Chloride Carbon Dioxide Anion Gap BUN Creatinine Est GFR (CKD-EPI)AfAm Est GFR (CKD-EPI)NonAf POC Glucometer 245 Random Glucose Calcium Total Bilirubin AST ALT Alkaline Phosphatase Total Protein Albumin Syphilis Serology Non-reactive COVID-19 (MEENU) HIV Ag/Ab Combo Qual Negative lab noted Assessment: 07/11/20 12:25 alcohol withdrawal diabetes II 07/11/20 12:25 obese Plan: librium regiment bgm insulin coverage
[2020-07-11] MEDS: INSULIN SLIDING SCALE (NOVOLOG) 1 VIAL SQ SCH (17:59)
[2020-07-11] MEDS: MAG HYDROX/AL HYDROX/SIMETH 30 ML UNIT-DOSE CUP PO PRN (21:20)
[2020-07-11] MEDS: MELATONIN 5 MG TABLETS PO SCH (22:25)
[2020-07-11] MEDS: QUEtiapine FUMARATE 200 MG TABLET PO SCH (22:25)
[2020-07-11] MEDS: ATORVASTATIN CA 10 MG TABLET (FP) PO SCH (22:25)
[2020-07-11] MEDS: THIAMINE HCL 100 MG TABLET (FP) PO SCH (22:25)
[2020-07-12] MEDS ORDERED: chlordiazePOXIDE HCL 10 MG CAPSULE PO PRN
[2020-07-12] MEDS: chlordiazePOXIDE HCL 10 MG CAPSULE PO SCH ×4 (05:51→22:22)
[2020-07-12] MEDS: metFORMIN HCL 500 MG TABLET (FP) PO SCH ×2 (06:11→17:03)
[2020-07-12] MEDS: glipiZIDE 5 MG TABLET (FP) PO SCH ×2 (06:11→17:03)
[2020-07-12] MEDS: INSULIN SLIDING SCALE (NOVOLOG) 1 VIAL SQ SCH ×2 (07:06→17:03)
--- NOTE | 2020-07-12 08:16 | PN ---
Teaching Attending Note Name of Resident: Jeanne Trivedi ATTENDING PHYSICIAN STATEMENT I saw and evaluated the patient. I reviewed the resident's note and discussed the case with the resident. I agree with the resident's findings and plan as documented. SUBJECTIVE: OBJECTIVE: ASSESSMENT AND PLAN: Agree with resident's findings and plan for detox.
[2020-07-12] MEDS: BUDESONIDE/FORMETEROL FUMARATE 80/4.5 mcg INHALER IH SCH ×2 (10:14→22:22)
[2020-07-12] MEDS: PRENATAL VITAMINS W/ FOLIC ACID TABLET (FP) PO SCH (10:14)
[2020-07-12] MEDS: LOSARTAN POTASSIUM 50 MG TABLET (FP) PO SCH (10:14)
--- NOTE | 2020-07-12 10:56 | PN ---
S CIWA - CIWA Score Nausea/Vomitin-No Nausea/No Vomiting Muscle Tremors: 1-None Visible, but [place] Anxiety: 2 Agitation: 0-Normal Activity Paroxysmal Sweats: 1-Minimal Palms Moist Orientation: 0-Oriented Tacttile Disturbances: 0-None Auditory Disturbances: 0-None Visual Disturbances: 2-Mild Sensitivity Headache: 0-None Present CIWA-Ar Total Score: 6 BHS Progress Note (SOAP) Subjective: 54 years old male was admitted on 07/09/20 for alcohol withdrawal sx management treating with librium detox regiment feels better today less tremor anxious about rehab arrangement discussing aftercare with staff mr burnett prefers [facility] out patient for alcohol abuse treatment Objective: 07/12/20 10:57 Vital Signs - 24 hr 07/11/20 07/11/20 07/11/20 12:45 16:27 20:38 Temperature 97.1 F L 97.5 F L 97.3 F L Pulse Rate 69 69 77 Respiratory 18 18 17 Rate Blood Pressure 125/73 116/70 131/86 O2 Sat by Pulse 95 100 Oximetry (%) 07/12/20 07/12/20 05:45 08:40 Temperature 97.5 F L 97.4 F L Pulse Rate 82 74 Respiratory 18 18 Rate Blood Pressure 117/77 112/70 O2 Sat by Pulse 95 95 Oximetry (%) Laboratory Tests 07/09/20 07/09/20 07/09/20 15:18 15:20 17:00 WBC RBC Hgb Hct MCV MCH MCHC RDW Plt Count MPV Sodium Potassium Chloride Carbon Dioxide Anion Gap BUN Creatinine Est GFR (CKD-EPI)AfAm Est GFR (CKD-EPI)NonAf POC Glucometer 198 129 Random Glucose Calcium Total Bilirubin AST ALT Alkaline Phosphatase Total Protein Albumin Syphilis Serology COVID-19 (MEENU) Not detected HIV Ag/Ab Combo Qual 07/10/20 07/10/20 07/10/20 05:55 07:50 07:50 WBC 6.8 RBC 4.36 Hgb 13.2 Hct 39.7 MCV 91.2 MCH 30.3 MCHC 33.2 RDW 13.9 Plt Count 232 MPV 8.8 Sodium 137 Potassium 4.2 Chloride 102 Carbon Dioxide 25 Anion Gap 10 BUN 11.4 Creatinine 0.7 Est GFR (CKD-EPI)AfAm 124.00 Est GFR (CKD-EPI)NonAf 106.99 POC Glucometer 185 Random Glucose 135 H Calcium 9.2 Total Bilirubin 0.4 AST 49 H ALT 71 H Alkaline Phosphatase 57 Total Protein 6.8 Albumin 3.5 Syphilis Serology COVID-19 (MEENU) HIV Ag/Ab Combo Qual 07/10/20 07/10/20 07/10/20 07:50 07:50 16:55 WBC RBC Hgb Hct MCV MCH MCHC RDW Plt Count MPV Sodium Potassium Chloride Carbon Dioxide Anion Gap BUN Creatinine Est GFR (CKD-EPI)AfAm Est GFR (CKD-EPI)NonAf POC Glucometer 245 Random Glucose Calcium Total Bilirubin AST ALT Alkaline Phosphatase Total Protein Albumin Syphilis Serology Non-reactive COVID-19 (MEENU) HIV Ag/Ab Combo Qual Negative 07/11/20 16:37 WBC RBC Hgb Hct MCV MCH MCHC RDW Plt Count MPV Sodium Potassium Chloride Carbon Dioxide Anion Gap BUN Creatinine Est GFR (CKD-EPI)AfAm Est GFR (CKD-EPI)NonAf POC Glucometer 259 Random Glucose Calcium Total Bilirubin AST ALT Alkaline Phosphatase Total Protein Albumin Syphilis Serology COVID-19 (MEENU) HIV Ag/Ab Combo Qual medical history of diabetes with risk factors of overweight refuses bgm monitoring Assessment: 07/12/20 10:58 alcohol withdrawal uncontrolled glucose serum level Plan: librium regiment
[2020-07-12] MEDS ORDERED: hydrOXYzine PAMOATE 25 MG CAPSULE (FP) PO ONE (17:13)
--- NOTE | 2020-07-12 17:22 | PN ---
[facility] Progress Note Note: Patient complained of feeling anxious. Vital Signs Temperature 97.7 F 07/12/20 16:25 Pulse Rate 72 07/12/20 16:25 Respiratory Rate 18 07/12/20 16:25 Blood Pressure 126/73 07/12/20 16:25 O2 Sat by Pulse Oximetry (%) 97 07/12/20 16:25 Laboratory Last Values WBC 6.8 K/mm3 (4.0-10.0) 07/10/20 07:50 RBC 4.36 M/mm3 (4.00-5.60) 07/10/20 07:50 Hgb 13.2 GM/dL (11.7-16.9) 07/10/20 07:50 Hct 39.7 % (35.4-49) 07/10/20 07:50 MCV 91.2 fl (80-96) 07/10/20 07:50 MCH 30.3 pg (25.7-33.7) 07/10/20 07:50 MCHC 33.2 g/dl (32.0-35.9) 07/10/20 07:50 RDW 13.9 % (11.9-15.9) 07/10/20 07:50 Plt Count 232 K/MM3 (134-434) 07/10/20 07:50 MPV 8.8 fl (7.5-11.1) 07/10/20 07:50 Sodium 137 mmol/L (136-145) 07/10/20 07:50 Potassium 4.2 mmol/L (3.5-5.1) 07/10/20 07:50 Chloride 102 mmol/L (98-107) 07/10/20 07:50 Carbon Dioxide 25 mmol/L (21-32) 07/10/20 07:50 Anion Gap 10 MMOL/L (8-16) 07/10/20 07:50 BUN 11.4 mg/dL (7-18) 07/10/20 07:50 Creatinine 0.7 mg/dL (0.55-1.3) 07/10/20 07:50 Est GFR (CKD-EPI)AfAm 124.00 07/10/20 07:50 Est GFR (CKD-EPI)NonAf 106.99 07/10/20 07:50 POC Glucometer 291 UNITS (80-120) 07/12/20 16:32 Random Glucose 135 mg/dL (74-106) H 07/10/20 07:50 Calcium 9.2 mg/dL (8.5-10.1) 07/10/20 07:50 Total Bilirubin 0.4 mg/dL (0.2-1) 07/10/20 07:50 AST 49 U/L (15-37) H 07/10/20 07:50 ALT 71 U/L (13-61) H 07/10/20 07:50 Alkaline Phosphatase 57 U/L (45-117) 07/10/20 07:50 Total Protein 6.8 g/dl (6.4-8.2) 07/10/20 07:50 Albumin 3.5 g/dl (3.4-5.0) 07/10/20 07:50 Syphilis Serology Non-reactive (NONREACTIVE) 07/10/20 07:50 COVID-19 (MEENU) Not detected (Not Detected) 07/09/20 15:18 HIV Ag/Ab Combo Qual Negative (NEGATIVE) 07/10/20 07:50 Action: Hydroxyzine Pamoate (Vistaril) 25mg capsule oral ordered
[2020-07-12] MEDS: QUEtiapine FUMARATE 200 MG TABLET PO SCH (22:23)
[2020-07-12] MEDS: ATORVASTATIN CA 10 MG TABLET (FP) PO SCH (22:23)
[2020-07-12] MEDS: THIAMINE HCL 100 MG TABLET (FP) PO SCH (22:23)
[2020-07-12] MEDS: MELATONIN 5 MG TABLETS PO SCH (22:24)
[2020-07-12] MEDS: MAG HYDROX/AL HYDROX/SIMETH 30 ML UNIT-DOSE CUP PO PRN (23:34)
[2020-07-13] MEDS: glipiZIDE 5 MG TABLET (FP) PO SCH ×2 (06:59→16:48)
[2020-07-13] MEDS: metFORMIN HCL 500 MG TABLET (FP) PO SCH ×2 (06:59→16:48)
[2020-07-13] MEDS: chlordiazePOXIDE HCL 10 MG CAPSULE PO SCH ×2 (06:59→16:51)
[2020-07-13] MEDS: INSULIN SLIDING SCALE (NOVOLOG) 1 VIAL SQ SCH ×2 (07:00→16:51)
[2020-07-13] MEDS: BUDESONIDE/FORMETEROL FUMARATE 80/4.5 mcg INHALER IH SCH ×2 (10:11→21:50)
[2020-07-13] MEDS: LOSARTAN POTASSIUM 50 MG TABLET (FP) PO SCH (10:11)
[2020-07-13] MEDS: PRENATAL VITAMINS W/ FOLIC ACID TABLET (FP) PO SCH (10:11)
[2020-07-13] MEDS ORDERED: hydrOXYzine PAMOATE 25 MG CAPSULE (FP) PO PRN (10:22)
--- NOTE | 2020-07-13 10:29 | PN ---
S CIWA - CIWA Score Nausea/Vomitin-No Nausea/No Vomiting Muscle Tremors: 1-None Visible, but [place] Anxiety: 1-Mildly Anxious Agitation: 0-Normal Activity Paroxysmal Sweats: No Perspiration Orientation: 0-Oriented Tacttile Disturbances: 0-None Auditory Disturbances: 0-None Visual Disturbances: 1-Very Mild Sensitivity Headache: 0-None Present CIWA-Ar Total Score: 3 BHS Progress Note (SOAP) Subjective: 54 years old male was admitted on 07/09/20 for alcohol withdrawal sx management treating with librium detox regiment mr burnett states that he has not received 5 am librium and requests librium one dose librium 10 mg po x 1 encourage mr burnett to follow up [facility] aftercare referral Objective: 07/13/20 10:30 Vital Signs - 24 hr 07/12/20 07/12/20 07/12/20 12:37 16:25 20:45 Temperature 97.7 F 97.7 F 97.5 F L Pulse Rate 66 72 67 Respiratory 18 18 18 Rate Blood Pressure 126/78 126/73 118/73 O2 Sat by Pulse 97 97 97 Oximetry (%) 07/13/20 07/13/20 06:34 08:40 Temperature 98.0 F 97.3 F L Pulse Rate 55 L 65 Respiratory 18 18 Rate Blood Pressure 103/59 L 116/67 O2 Sat by Pulse 96 96 Oximetry (%) Laboratory Tests 07/09/20 07/09/20 07/09/20 15:18 15:20 17:00 WBC RBC Hgb Hct MCV MCH MCHC RDW Plt Count MPV Sodium Potassium Chloride Carbon Dioxide Anion Gap BUN Creatinine Est GFR (CKD-EPI)AfAm Est GFR (CKD-EPI)NonAf POC Glucometer 198 129 Random Glucose Calcium Total Bilirubin AST ALT Alkaline Phosphatase Total Protein Albumin Syphilis Serology COVID-19 (MEENU) Not detected HIV Ag/Ab Combo Qual 07/10/20 07/10/20 07/10/20 05:55 07:50 07:50 WBC 6.8 RBC 4.36 Hgb 13.2 Hct 39.7 MCV 91.2 MCH 30.3 MCHC 33.2 RDW 13.9 Plt Count 232 MPV 8.8 Sodium 137 Potassium 4.2 Chloride 102 Carbon Dioxide 25 Anion Gap 10 BUN 11.4 Creatinine 0.7 Est GFR (CKD-EPI)AfAm 124.00 Est GFR (CKD-EPI)NonAf 106.99 POC Glucometer 185 Random Glucose 135 H Calcium 9.2 Total Bilirubin 0.4 AST 49 H ALT 71 H Alkaline Phosphatase 57 Total Protein 6.8 Albumin 3.5 Syphilis Serology COVID-19 (MEENU) HIV Ag/Ab Combo Qual 07/10/20 07/10/20 07/10/20 07:50 07:50 16:55 WBC RBC Hgb Hct MCV MCH MCHC RDW Plt Count MPV Sodium Potassium Chloride Carbon Dioxide Anion Gap BUN Creatinine Est GFR (CKD-EPI)AfAm Est GFR (CKD-EPI)NonAf POC Glucometer 245 Random Glucose Calcium Total Bilirubin AST ALT Alkaline Phosphatase Total Protein Albumin Syphilis Serology Non-reactive COVID-19 (MEENU) HIV Ag/Ab Combo Qual Negative 07/11/20 07/12/20 16:37 16:32 WBC RBC Hgb Hct MCV MCH MCHC RDW Plt Count MPV Sodium Potassium Chloride Carbon Dioxide Anion Gap BUN Creatinine Est GFR (CKD-EPI)AfAm Est GFR (CKD-EPI)NonAf POC Glucometer 259 291 Random Glucose Calcium Total Bilirubin AST ALT Alkaline Phosphatase Total Protein Albumin Syphilis Serology COVID-19 (MEENU) HIV Ag/Ab Combo Qual 07/13/20 10:30 non insulin dependent diabetes Assessment: 07/13/20 10:31 alcohol withdrawal Plan: librium regiment
[2020-07-13] MEDS ORDERED: chlordiazePOXIDE HCL 10 MG CAPSULE PO ONE (11:00)
[2020-07-13] MEDS: QUEtiapine FUMARATE 200 MG TABLET PO SCH (21:49)
[2020-07-13] MEDS: ATORVASTATIN CA 10 MG TABLET (FP) PO SCH (21:49)
[2020-07-13] MEDS: MELATONIN 5 MG TABLETS PO SCH (21:49)
[2020-07-13] MEDS: THIAMINE HCL 100 MG TABLET (FP) PO SCH (21:49)
[2020-07-14] MEDS ORDERED: chlordiazePOXIDE HCL 10 MG CAPSULE PO ONE (05:00)
[2020-07-14] MEDS: metFORMIN HCL 500 MG TABLET (FP) PO SCH (07:05)
[2020-07-14] MEDS: glipiZIDE 5 MG TABLET (FP) PO SCH (07:05)
[2020-07-14] MEDS: INSULIN SLIDING SCALE (NOVOLOG) 1 VIAL SQ SCH (07:05)
[2020-07-14 09:08] VITALS: BP 114/77; PULSE 76; TEMP 97.1
[2020-07-14] MEDS: LOSARTAN POTASSIUM 50 MG TABLET (FP) PO SCH (09:16)
[2020-07-14] MEDS: BUDESONIDE/FORMETEROL FUMARATE 80/4.5 mcg INHALER IH SCH (09:16)
[2020-07-14] MEDS: PRENATAL VITAMINS W/ FOLIC ACID TABLET (FP) PO SCH (09:16)
--- NOTE | 2020-07-14 10:57 | DS ---
[facility] Detox Discharge Summary Admission Date: 07/09/20 Discharge Date: 07/14/20 - History Present History: Alcohol Dependence Additional Comments: 54 years old male was admitted on 07/09/20 for alcohol withdrawal sx management treated with librium detox regiment seen by psychiatrist donald burgess seroquetatum mr burnett has completed the librium regiment and is tolerated well General Appearance: Yes: No Apparent Distress, Obese Respiratory: Yes: No Respiratory Distress, No Accessory Muscle Use, Wheezing (upper airway) asthma copd Cardiology: Yes: Regular Rhythm, Regular Rate Abdominal: Yes: Non Tender Extremities: Yes: Normal Inspection, Normal Range of Motion Pertinent Past History: time for discharge 33 minutes - Physical Exam Results Vital Signs: Vital Signs Temperature 97.1 F L 07/14/20 08:40 Pulse Rate 76 07/14/20 08:40 Respiratory Rate 18 07/14/20 08:40 Blood Pressure 114/77 07/14/20 08:40 O2 Sat by Pulse Oximetry (%) 100 07/14/20 06:27 Pertinent Admission Physical Exam Findings: alcohol withdrawal Vital Signs - 24 hr 07/13/20 07/13/20 07/13/20 12:38 16:42 20:32 Temperature 98.2 F 97.3 F L 97.2 F L Pulse Rate 66 59 L 61 Respiratory 18 18 18 Rate Blood Pressure 113/70 107/61 117/74 O2 Sat by Pulse 96 99 Oximetry (%) 07/14/20 07/14/20 06:27 08:40 Temperature 97.1 F L Pulse Rate 76 Respiratory 18 Rate Blood Pressure 114/77 O2 Sat by Pulse 100 Oximetry (%) Laboratory Tests 07/09/20 07/09/20 07/09/20 15:18 15:20 17:00 WBC RBC Hgb Hct MCV MCH MCHC RDW Plt Count MPV Sodium Potassium Chloride Carbon Dioxide Anion Gap BUN Creatinine Est GFR (CKD-EPI)AfAm Est GFR (CKD-EPI)NonAf POC Glucometer 198 129 Random Glucose Calcium Total Bilirubin AST ALT Alkaline Phosphatase Total Protein Albumin Syphilis Serology COVID-19 ([facility]) Not detected HIV Ag/Ab Combo Qual 07/10/20 07/10/20 07/10/20 05:55 07:50 07:50 WBC 6.8 RBC 4.36 Hgb 13.2 Hct 39.7 MCV 91.2 MCH 30.3 MCHC 33.2 RDW 13.9 Plt Count 232 MPV 8.8 Sodium 137 Potassium 4.2 Chloride 102 Carbon Dioxide 25 Anion Gap 10 BUN 11.4 Creatinine 0.7 Est GFR (CKD-EPI)AfAm 124.00 Est GFR (CKD-EPI)NonAf 106.99 POC Glucometer 185 Random Glucose 135 H Calcium 9.2 Total Bilirubin 0.4 AST 49 H ALT 71 H Alkaline Phosphatase 57 Total Protein 6.8 Albumin 3.5 Syphilis Serology COVID-19 ([facility]) HIV Ag/Ab Combo Qual 07/10/20 07/10/20 07/10/20 07:50 07:50 16:55 WBC RBC Hgb Hct MCV MCH MCHC RDW Plt Count MPV Sodium Potassium Chloride Carbon Dioxide Anion Gap BUN Creatinine Est GFR (CKD-EPI)AfAm Est GFR (CKD-EPI)NonAf POC Glucometer 245 Random Glucose Calcium Total Bilirubin AST ALT Alkaline Phosphatase Total Protein Albumin Syphilis Serology Non-reactive COVID-19 ([facility]) HIV Ag/Ab Combo Qual Negative 07/11/20 07/12/20 07/13/20 16:37 16:32 16:30 WBC RBC Hgb Hct MCV MCH MCHC RDW Plt Count MPV Sodium Potassium Chloride Carbon Dioxide Anion Gap BUN Creatinine Est GFR (CKD-EPI)AfAm Est GFR (CKD-EPI)NonAf POC Glucometer 259 291 352 Random Glucose Calcium Total Bilirubin AST ALT Alkaline Phosphatase Total Protein Albumin Syphilis Serology COVID-19 ([facility]) HIV Ag/Ab Combo Qual insulin dependent diabetes - Treatment Hospital Course: Detox Protocol Followed, Detoxed Safely, Responded well, Discharged Condition Good, Rehab Referral Accepted Patient has Accepted a Rehab Referral to: Summer substance use out patient - Medication Discharge Medications: Ambulatory Orders Losartan Potassium 50 mg PO DAILY 05/06/19 Metformin HCl [Glucophage] 1,000 mg PO BID 05/06/19 Simvastatin 20 mg PO HS 05/06/19 Glipizide 5 mg PO BID 11/07/19 Quetiapine Fumarate [Seroquel -] 400 mg PO HS 07/09/20 Albuterol Sulfate Inhaler - [Ventolin HFA Inhaler -] 2 puff IH Q4H PRN #1 inhaler 07/14/20 Budesonide/Formeterol Fumarate [SYMBICORT 80/4.5mcg -] 2 puff IH BID #1 inhaler 07/14/20 - Diagnosis (1) Insulin dependent type 2 diabetes mellitus, uncontrolled Status: Chronic (2) Alcohol dependence with uncomplicated withdrawal Status: Acute (3) Asthma Status: Chronic Qualifiers: Asthma severity: mild Asthma persistence: intermittent Asthma complication type: with status asthmaticus Qualified Code(s): J45.22 - Mild intermittent asthma with status asthmaticus (4) GERD (gastroesophageal reflux disease) Status: Chronic Qualifiers: Esophagitis presence: without esophagitis Qualified Code(s): K21.9 - Gastro-esophageal reflux disease without esophagitis (5) Hyperlipidemia Status: Chronic Qualifiers: Hyperlipidemia type: pure hypercholesterolemia Qualified Code(s): E78.00 - Pure hypercholesterolemia, unspecified; E78.0 - Pure hypercholesterolemia (6) Hypertension Status: Chronic Qualifiers: Hypertension type: essential hypertension Qualified Code(s): I10 - Essential (primary) hypertension (7) Substance induced mood disorder Status: Suspected - AMA Did Patient Leave Against Medical Advice: No CIWA Score - CIWA Score Nausea/Vomitin-No Nausea/No Vomiting Muscle Tremors: 1-None Visible, but [place] Anxiety: 0-No Anxiety, at Ease Agitation: 0-Normal Activity Paroxysmal Sweats: No Perspiration Orientation: 0-Oriented Tacttile Disturbances: 0-None Auditory Disturbances: 0-None Visual Disturbances: 0-None Headache: 0-None Present CIWA-Ar Total Score: 1
== END 2020-07-14 09:19 | disposition home or self-care (01) | DRG 897 ==
LOC: YASAS 12:41 → Y3N 15:11
PROVIDERS: ADMIT Allergy & Immunology; ATTEND Allergy & Immunology
PROC: HZ2ZZZZ Detoxification Services for Substance Abuse Treatment (ICD-10-PCS; principal; 2020-07-09)
DX: F10.230 Alcohol dependence with withdrawal, uncomplicated (principal); F14.10 Cocaine abuse, uncomplicated; F25.9 Schizoaffective disorder, unspecified; F19.24 Other psychoactive substance dependence with psychoactive substance-induced mood disorder; G47.00 Insomnia, unspecified; E78.5 Hyperlipidemia, unspecified; E11.65 Type 2 diabetes mellitus with hyperglycemia; Z79.4 Long term (current) use of insulin; I10 Essential (primary) hypertension; K21.9 Gastro-esophageal reflux disease without esophagitis; J45.909 Unspecified asthma, uncomplicated; E66.9 Obesity, unspecified; Z68.35 Body mass index [BMI] 35.0-35.9, adult; Z91.5 Personal history of self-harm; Z88.0 Allergy status to penicillin; Z56.0 Unemployment, unspecified
CPT/HCPCS: 36415; 80053; 82962; 85027; 86780; 87389; U0003

== ENCOUNTER 2020-09-24 10:42 | Inpatient (IN) | payer OTHER ==
[2020-09-24 11:16] VITALS: BMI 36.0
[2020-09-24] MEDS ORDERED: IBUPROFEN 400 MG TABLET (FP) PO PRN (11:37)
[2020-09-24] MEDS ORDERED: BISMUTH SUBSALICYLATE 262 MG/15 ML BTL PO PRN (11:37)
[2020-09-24] MEDS ORDERED: NICOTINE POLACRILEX 2 MG GUM BUC PRN (11:37)
[2020-09-24] MEDS ORDERED: chlordiazePOXIDE HCL 25 MG CAPSULE PO PRN (11:37)
[2020-09-24] MEDS ORDERED: ONDANSETRON *ODT* 4 MG TABLET SL PRN (11:37)
[2020-09-24] MEDS ORDERED: METHOCARBAMOL 500 MG TABLET PO PRN (11:37)
[2020-09-24] MEDS ORDERED: MAGNESIUM HYDROX 2400MG/30ML ORAL SUSPENSION 30 ML CUP PO PRN (11:37)
[2020-09-24] MEDS ORDERED: MAGNESIUM CITRATE 300 ML BOTTLE PO PRN (11:37)
[2020-09-24] MEDS ORDERED: ACETAMINOPHEN 325 MG TABLET (FP) PO PRN ×2 (11:37)
[2020-09-24] MEDS ORDERED: MENTHOL/PHENOL 1 EACH UD MM PRN (11:37)
[2020-09-24] MEDS ORDERED: BUDESONIDE/FORMETEROL FUMARATE 80/4.5 mcg INHALER IH PRN (11:39)
[2020-09-24] MEDS: chlordiazePOXIDE HCL 25 MG CAPSULE PO SCH ×3 (12:46→22:08)
[2020-09-24] MEDS: PRENATAL VITAMINS W/ FOLIC ACID TABLET (FP) PO SCH (12:47)
[2020-09-24] MEDS: NICOTINE 7 MG/24 HOURS TOPICAL PATCH TD SCH (12:48)
[2020-09-24] MEDS: hydrOXYzine PAMOATE 25 MG CAPSULE (FP) PO SCH ×3 (13:40→22:07)
[2020-09-24 15:39] LABS: HEMATOCRIT 41.4 % (35.4-49); HEMOGLOBIN 13.7 GM/dL (11.7-16.9); MCH 30.3 pg (25.7-33.7); MEAN CELL VOLUME 91.9 fl (80-96); MEAN PLT VOLUME 8.7 fl (7.5-11.1); PLATELET COUNT 195 K/MM3 (134-434); RBC 4.51 M/mm3 (4.00-5.60); RDW 13.8 % (11.9-15.9); WHITE BLOOD COUNT 5.3 K/mm3 (4.0-10.0)
[2020-09-24 15:41] LABS: POTASSIUM 4.1 mmol/L (3.5-5.1)
[2020-09-24 15:44] LABS: ALBUMIN 3.9 g/dl (3.4-5.0); BLOOD UREA NITROGEN 9.2 mg/dL (7-18); CALCIUM 9.5 mg/dL (8.5-10.1)
[2020-09-24 15:47] LABS: CREATININE 0.9 mg/dL (0.55-1.3)
[2020-09-24 15:49] LABS: BILIRUBIN,TOTAL 1.4 mg/dL (0.2-1); TOT PROT 7.5 g/dl (6.4-8.2)
[2020-09-24] MEDS ORDERED: metFORMIN HCL 500 MG TABLET (FP) PO SCH (16:30)
[2020-09-24] MEDS: glipiZIDE 5 MG TABLET (FP) PO SCH (17:30)
[2020-09-24] MEDS: METFORMIN 1000 MG PO SCH (17:30)
[2020-09-24] MEDS: MAG HYDROX/AL HYDROX/SIMETH 30 ML UNIT-DOSE CUP PO PRN (20:29)
[2020-09-24] MEDS: QUEtiapine FUMARATE 300 MG TABLET PO SCH (22:07)
[2020-09-24] MEDS: THIAMINE HCL 100 MG TABLET (FP) PO SCH (22:07)
[2020-09-24] MEDS: MELATONIN 5 MG TABLETS PO SCH (22:08)
[2020-09-25] MEDS: hydrOXYzine PAMOATE 25 MG CAPSULE (FP) PO SCH ×5 (05:55→22:03)
[2020-09-25] MEDS: chlordiazePOXIDE HCL 25 MG CAPSULE PO SCH ×2 (05:55→10:18)
[2020-09-25] MEDS: glipiZIDE 5 MG TABLET (FP) PO SCH ×2 (06:19→17:02)
[2020-09-25] MEDS: METFORMIN 1000 MG PO SCH ×2 (06:19→17:02)
[2020-09-25] MEDS: ALBUTEROL SO4 HFA INHALER IH PRN ×2 (09:42→19:12)
[2020-09-25] MEDS: NICOTINE 7 MG/24 HOURS TOPICAL PATCH TD SCH (10:18)
[2020-09-25] MEDS: PRENATAL VITAMINS W/ FOLIC ACID TABLET (FP) PO SCH (10:18)
[2020-09-25] MEDS: LOSARTAN POTASSIUM 50 MG TABLET PO SCH (10:18)
[2020-09-25] MEDS: SERTRALINE HCL 50 MG TABLET (FP) PO SCH (10:18)
[2020-09-25] MEDS ORDERED: MASKS NR ONE (12:53)
[2020-09-25] MEDS ORDERED: LORazepam 0.5 MG TABLET PO PRN (12:56)
[2020-09-25] MEDS: MAG HYDROX/AL HYDROX/SIMETH 30 ML UNIT-DOSE CUP PO PRN (15:22)
[2020-09-25] MEDS ORDERED: LORazepam 2 MG TABLET PO PRN (17:00)
[2020-09-25] MEDS: INSULIN SLIDING SCALE (NOVOLOG) 1 VIAL SQ SCH ×2 (17:02→22:05)
[2020-09-25] MEDS ORDERED: QUEtiapine FUMARATE 100 MG TABLET (FP) ONE (21:12)
[2020-09-25] MEDS: THIAMINE HCL 100 MG TABLET (FP) PO SCH (22:03)
[2020-09-25] MEDS: QUEtiapine FUMARATE 300 MG TABLET PO SCH (22:03)
[2020-09-25] MEDS: MELATONIN 5 MG TABLETS PO SCH (22:03)
[2020-09-25] MEDS: ATORVASTATIN CA 10 MG TABLET (FP) PO SCH (22:03)
[2020-09-26] MEDS: ALBUTEROL SO4 HFA INHALER IH PRN ×2 (01:42→06:09)
[2020-09-26] MEDS ORDERED: chlordiazePOXIDE HCL 25 MG CAPSULE PO SCH (05:00)
[2020-09-26] MEDS: hydrOXYzine PAMOATE 25 MG CAPSULE (FP) PO SCH ×5 (06:08→22:08)
[2020-09-26] MEDS: LORazepam 1 MG TABLET PO SCH ×4 (06:08→22:08)
[2020-09-26] MEDS: METFORMIN 1000 MG PO SCH ×2 (07:20→17:01)
[2020-09-26] MEDS: glipiZIDE 5 MG TABLET (FP) PO SCH ×2 (07:20→17:01)
[2020-09-26] MEDS: INSULIN SLIDING SCALE (NOVOLOG) 1 VIAL SQ SCH ×3 (07:20→17:04)
[2020-09-26] MEDS: MAG HYDROX/AL HYDROX/SIMETH 30 ML UNIT-DOSE CUP PO PRN (09:08)
[2020-09-26] MEDS: SERTRALINE HCL 50 MG TABLET (FP) PO SCH (10:07)
[2020-09-26] MEDS: LOSARTAN POTASSIUM 50 MG TABLET PO SCH (10:08)
[2020-09-26] MEDS: PRENATAL VITAMINS W/ FOLIC ACID TABLET (FP) PO SCH (10:08)
[2020-09-26] MEDS: NICOTINE 7 MG/24 HOURS TOPICAL PATCH TD SCH (10:09)
[2020-09-26] MEDS ORDERED: FLU VACCINE (FLULAVAL) PF 60 MCG/0.5 ML SYRINGE 2020-2021 IM ONE (11:40)
[2020-09-26] MEDS: ALBUTEROL SO4 0.083% IH SOL 2.5 MG/3 ML VIAL.NEB. NEB PRN ×2 (12:30→12:45)
[2020-09-26] MEDS ORDERED: predniSONE 20 MG TABLET (UD) PO ONE (12:51)
[2020-09-26] MEDS ORDERED: ALBUTEROL SO4 0.083% IH SOL 2.5 MG/3 ML VIAL.NEB. NEB ONE (13:49)
[2020-09-26] MEDS: QUEtiapine FUMARATE 200 MG TABLET PO SCH (22:08)
[2020-09-26] MEDS: ATORVASTATIN CA 10 MG TABLET (FP) PO SCH (22:09)
[2020-09-26] MEDS: THIAMINE HCL 100 MG TABLET (FP) PO SCH (22:09)
[2020-09-26] MEDS: MELATONIN 5 MG TABLETS PO SCH (22:09)
[2020-09-27] MEDS ORDERED: chlordiazePOXIDE HCL 10 MG CAPSULE PO PRN
[2020-09-27] MEDS ORDERED: chlordiazePOXIDE HCL 10 MG CAPSULE PO SCH (05:00)
[2020-09-27] MEDS: hydrOXYzine PAMOATE 25 MG CAPSULE (FP) PO SCH ×5 (05:50→22:23)
[2020-09-27] MEDS: LORazepam 0.5 MG TABLET PO SCH ×4 (05:50→22:22)
[2020-09-27] MEDS: glipiZIDE 5 MG TABLET (FP) PO SCH ×2 (06:32→16:55)
[2020-09-27] MEDS: METFORMIN 1000 MG PO SCH ×2 (06:32→16:55)
[2020-09-27] MEDS: INSULIN SLIDING SCALE (NOVOLOG) 1 VIAL SQ SCH ×2 (06:33→16:55)
[2020-09-27] MEDS ORDERED: predniSONE 20 MG TABLET (UD) PO ONE (10:00)
[2020-09-27] MEDS: SERTRALINE HCL 50 MG TABLET (FP) PO SCH (10:03)
[2020-09-27] MEDS: PRENATAL VITAMINS W/ FOLIC ACID TABLET (FP) PO SCH (10:03)
[2020-09-27] MEDS: NICOTINE 7 MG/24 HOURS TOPICAL PATCH TD SCH (10:04)
[2020-09-27] MEDS: LOSARTAN POTASSIUM 50 MG TABLET PO SCH (10:04)
[2020-09-27] MEDS: QUEtiapine FUMARATE 200 MG TABLET PO SCH (22:22)
[2020-09-27] MEDS: ATORVASTATIN CA 10 MG TABLET (FP) PO SCH (22:23)
[2020-09-27] MEDS: THIAMINE HCL 100 MG TABLET (FP) PO SCH (22:23)
[2020-09-27] MEDS: MELATONIN 5 MG TABLETS PO SCH (22:25)
[2020-09-28] MEDS ORDERED: chlordiazePOXIDE HCL 10 MG CAPSULE PO SCH (05:00)
[2020-09-28] MEDS ORDERED: LORazepam 0.5 MG TABLET PO ONE (05:00)
[2020-09-28] MEDS: hydrOXYzine PAMOATE 25 MG CAPSULE (FP) PO SCH ×3 (06:11→13:22)
[2020-09-28] MEDS: glipiZIDE 5 MG TABLET (FP) PO SCH (06:12)
[2020-09-28] MEDS: METFORMIN 1000 MG PO SCH (06:12)
[2020-09-28] MEDS: INSULIN SLIDING SCALE (NOVOLOG) 1 VIAL SQ SCH (07:33)
[2020-09-28] MEDS: SERTRALINE HCL 50 MG TABLET (FP) PO SCH (09:10)
[2020-09-28] MEDS: PRENATAL VITAMINS W/ FOLIC ACID TABLET (FP) PO SCH (09:10)
[2020-09-28] MEDS: NICOTINE 7 MG/24 HOURS TOPICAL PATCH TD SCH (09:11)
[2020-09-28] MEDS: ALBUTEROL SO4 HFA INHALER IH PRN (09:12)
[2020-09-28] MEDS: LOSARTAN POTASSIUM 50 MG TABLET PO SCH (09:12)
[2020-09-28] MEDS ORDERED: predniSONE 20 MG TABLET (UD) PO ONE (10:00)
[2020-09-28 13:03] VITALS: BP 131/84; PULSE 95; TEMP 97.5
[2020-09-28] MEDS: MAG HYDROX/AL HYDROX/SIMETH 30 ML UNIT-DOSE CUP PO PRN (14:49)
[2020-09-29] MEDS ORDERED: chlordiazePOXIDE HCL 10 MG CAPSULE PO ONE (05:00)
== END 2020-09-28 14:55 | disposition other institution (70) | DRG 897 ==
LOC: YASAS 10:42 → Y3N 11:33
PROVIDERS: ADMIT Allergy & Immunology; ATTEND Allergy & Immunology
PROC: HZ2ZZZZ Detoxification Services for Substance Abuse Treatment (ICD-10-PCS; principal; 2020-09-24)
DX: F10.230 Alcohol dependence with withdrawal, uncomplicated (principal); F14.20 Cocaine dependence, uncomplicated; F25.9 Schizoaffective disorder, unspecified; F19.24 Other psychoactive substance dependence with psychoactive substance-induced mood disorder; G47.00 Insomnia, unspecified; E78.00 Pure hypercholesterolemia, unspecified; E13.8 Other specified diabetes mellitus with unspecified complications; Z79.84 Long term (current) use of oral hypoglycemic drugs; J45.909 Unspecified asthma, uncomplicated; K21.9 Gastro-esophageal reflux disease without esophagitis; R74.01 Elevation of levels of liver transaminase levels; R74.8 Abnormal levels of other serum enzymes; E66.9 Obesity, unspecified; Z68.36 Body mass index [BMI] 36.0-36.9, adult; Z88.0 Allergy status to penicillin
CPT/HCPCS: 36415; 80053; 82962; 85027; 86780; 94640; C9803; G0008; Q2036; U0003

== ENCOUNTER 2021-08-06 12:03 | Inpatient (IN) | payer OTHER ==
[2021-08-06 12:23] VITALS: BMI 33.3
[2021-08-06] MEDS ORDERED: MAGNESIUM HYDROX 2400MG/30ML ORAL SUSPENSION 30 ML CUP PO PRN (14:27)
[2021-08-06] MEDS ORDERED: ACETAMINOPHEN 325 MG TABLET (FP) PO PRN ×2 (14:27)
[2021-08-06] MEDS ORDERED: MENTHOL/PHENOL 1 EACH UD MM PRN (14:27)
[2021-08-06] MEDS ORDERED: LORazepam 1 MG TABLET PO PRN (14:27)
[2021-08-06] MEDS ORDERED: IBUPROFEN 400 MG TABLET (FP) PO PRN (14:27)
[2021-08-06] MEDS ORDERED: NICOTINE 10 MG CARTRIDGE (INHALER) IH PRN (14:27)
[2021-08-06] MEDS ORDERED: MAG HYDROX/AL HYDROX/SIMETH 30 ML UNIT-DOSE CUP PO PRN (14:27)
[2021-08-06] MEDS ORDERED: MAGNESIUM CITRATE 300 ML BOTTLE PO PRN (14:27)
[2021-08-06] MEDS ORDERED: ONDANSETRON *ODT* 4 MG TABLET SL PRN (14:27)
[2021-08-06] MEDS ORDERED: METHOCARBAMOL 500 MG TABLET PO PRN (14:27)
[2021-08-06] MEDS ORDERED: BISMUTH SUBSALICYLATE 524 MG/30 ML PO PRN (14:27)
[2021-08-06] MEDS: LORazepam 2 MG TABLET PO SCH ×2 (18:53→22:51)
[2021-08-06] MEDS: hydrOXYzine PAMOATE 25 MG CAPSULE (FP) PO SCH ×2 (18:53→22:48)
[2021-08-06] MEDS: metFORMIN HCL 500 MG TABLET (FP) PO SCH (18:53)
[2021-08-06] MEDS: glipiZIDE 5 MG TABLET (FP) PO SCH (18:54)
[2021-08-06] MEDS: ALBUTEROL SO4 HFA INHALER IH PRN (20:24)
[2021-08-06] MEDS: MELATONIN 5 MG TABLETS PO SCH (22:48)
[2021-08-06] MEDS: THIAMINE HCL 100 MG TABLET (FP) PO SCH (22:48)
[2021-08-06] MEDS: ATORVASTATIN CA 10 MG TABLET (FP) PO SCH (22:48)
[2021-08-06] MEDS: BUDESONIDE/FORMETEROL FUMARATE 80/4.5 mcg INHALER IH SCH (23:28)
[2021-08-07] MEDS: LORazepam 2 MG TABLET PO SCH ×4 (05:53→22:04)
[2021-08-07] MEDS: hydrOXYzine PAMOATE 25 MG CAPSULE (FP) PO SCH ×5 (05:53→22:04)
[2021-08-07] MEDS: metFORMIN HCL 500 MG TABLET (FP) PO SCH ×2 (06:00→17:49)
[2021-08-07] MEDS: glipiZIDE 5 MG TABLET (FP) PO SCH ×2 (06:00→17:49)
[2021-08-07] MEDS: LOSARTAN POTASSIUM 50 MG TABLET PO SCH (10:42)
[2021-08-07] MEDS: SERTRALINE HCL 50 MG TABLET (FP) PO SCH (10:42)
[2021-08-07] MEDS: PRENATAL VITAMINS W/ FOLIC ACID TABLET (FP) PO SCH (10:42)
[2021-08-07] MEDS: BUDESONIDE/FORMETEROL FUMARATE 80/4.5 mcg INHALER IH SCH ×2 (10:43→23:09)
[2021-08-07] MEDS: ATORVASTATIN CA 10 MG TABLET (FP) PO SCH (22:04)
[2021-08-07] MEDS: QUEtiapine FUMARATE 200 MG TABLET PO SCH (22:05)
[2021-08-07] MEDS: THIAMINE HCL 100 MG TABLET (FP) PO SCH (22:05)
[2021-08-07] MEDS: MELATONIN 5 MG TABLETS PO SCH (22:05)
[2021-08-08] MEDS: LORazepam 1 MG TABLET PO SCH ×4 (05:47→22:03)
[2021-08-08] MEDS: hydrOXYzine PAMOATE 25 MG CAPSULE (FP) PO SCH ×5 (05:48→21:56)
[2021-08-08] MEDS: glipiZIDE 5 MG TABLET (FP) PO SCH ×2 (06:51→18:13)
[2021-08-08] MEDS: metFORMIN HCL 500 MG TABLET (FP) PO SCH ×2 (06:51→18:12)
[2021-08-08] MEDS: SERTRALINE HCL 50 MG TABLET (FP) PO SCH (10:32)
[2021-08-08] MEDS: PRENATAL VITAMINS W/ FOLIC ACID TABLET (FP) PO SCH (10:33)
[2021-08-08] MEDS: BUDESONIDE/FORMETEROL FUMARATE 80/4.5 mcg INHALER IH SCH ×2 (10:33→23:01)
[2021-08-08] MEDS: LOSARTAN POTASSIUM 50 MG TABLET PO SCH (10:33)
[2021-08-08 10:45] LABS: HEMATOCRIT 38.6 % (35.4-49); HEMOGLOBIN 13.2 GM/dL (11.7-16.9); MCH 30.8 pg (25.7-33.7); MCHC 34.2 g/dl (32.0-35.9); PLATELET COUNT 223 10^3/uL (134-434); RBC 4.29 M/mm3 (4.00-5.60); RDW 13.3 % (11.9-15.9); WHITE BLOOD COUNT 5.8 K/mm3 (4.0-10.0)
[2021-08-08 10:56] LABS: ALBUMIN 3.3 g/dl (3.4-5.0); BLOOD UREA NITROGEN 13.2 mg/dL (7-18)
[2021-08-08 10:57] LABS: CALCIUM 8.9 mg/dL (8.5-10.1)
[2021-08-08 10:59] LABS: CREATININE 0.8 mg/dL (0.55-1.3)
[2021-08-08 11:01] LABS: TOT PROT 6.6 g/dl (6.4-8.2)
[2021-08-08 11:04] LABS: BILIRUBIN,TOTAL 0.6 mg/dL (0.2-1)
[2021-08-08] MEDS: ALBUTEROL SO4 HFA INHALER IH PRN (21:32)
[2021-08-08] MEDS: ATORVASTATIN CA 10 MG TABLET (FP) PO SCH (21:56)
[2021-08-08] MEDS: THIAMINE HCL 100 MG TABLET (FP) PO SCH (21:56)
[2021-08-08] MEDS: QUEtiapine FUMARATE 200 MG TABLET PO SCH (21:56)
[2021-08-08] MEDS: MELATONIN 5 MG TABLETS PO SCH (21:56)
[2021-08-09] MEDS ORDERED: LORazepam 0.5 MG TABLET PO PRN
[2021-08-09] MEDS: hydrOXYzine PAMOATE 25 MG CAPSULE (FP) PO SCH ×5 (06:10→22:11)
[2021-08-09] MEDS: LORazepam 0.5 MG TABLET PO SCH ×4 (06:11→22:12)
[2021-08-09] MEDS: metFORMIN HCL 500 MG TABLET (FP) PO SCH ×2 (06:11→17:58)
[2021-08-09] MEDS: glipiZIDE 5 MG TABLET (FP) PO SCH ×2 (06:11→17:59)
[2021-08-09] MEDS: ALBUTEROL SO4 HFA INHALER IH PRN (06:13)
[2021-08-09] MEDS: LOSARTAN POTASSIUM 50 MG TABLET PO SCH (10:18)
[2021-08-09] MEDS: PRENATAL VITAMINS W/ FOLIC ACID TABLET (FP) PO SCH (10:18)
[2021-08-09] MEDS: BUDESONIDE/FORMETEROL FUMARATE 80/4.5 mcg INHALER IH SCH ×2 (10:18→22:12)
[2021-08-09] MEDS: SERTRALINE HCL 50 MG TABLET (FP) PO SCH (10:19)
[2021-08-09] MEDS: INSULIN SLIDING SCALE (NOVOLOG) 1 VIAL SQ SCH ×2 (18:00→22:12)
[2021-08-09] MEDS: QUEtiapine FUMARATE 200 MG TABLET PO SCH (22:10)
[2021-08-09] MEDS: ATORVASTATIN CA 10 MG TABLET (FP) PO SCH (22:10)
[2021-08-09] MEDS: THIAMINE HCL 100 MG TABLET (FP) PO SCH (22:11)
[2021-08-09] MEDS: MELATONIN 5 MG TABLETS PO SCH (22:11)
[2021-08-10] MEDS ORDERED: LORazepam 0.5 MG TABLET PO ONE (05:00)
[2021-08-10] MEDS: glipiZIDE 5 MG TABLET (FP) PO SCH (06:41)
[2021-08-10] MEDS: metFORMIN HCL 500 MG TABLET (FP) PO SCH (06:42)
[2021-08-10] MEDS: INSULIN SLIDING SCALE (NOVOLOG) 1 VIAL SQ SCH ×2 (07:09→12:12)
[2021-08-10] MEDS: hydrOXYzine PAMOATE 25 MG CAPSULE (FP) PO SCH ×3 (08:59→13:47)
[2021-08-10] MEDS: SERTRALINE HCL 50 MG TABLET (FP) PO SCH (10:33)
[2021-08-10] MEDS: LOSARTAN POTASSIUM 50 MG TABLET PO SCH (10:33)
[2021-08-10] MEDS: BUDESONIDE/FORMETEROL FUMARATE 80/4.5 mcg INHALER IH SCH (10:34)
[2021-08-10] MEDS: PRENATAL VITAMINS W/ FOLIC ACID TABLET (FP) PO SCH (10:34)
[2021-08-10 12:49] VITALS: BP 113/76; PULSE 74; TEMP 96.9
== END 2021-08-10 15:41 | disposition home or self-care (01) | DRG 897 ==
LOC: YASAS 12:03 → Y3N 16:20
PROVIDERS: ADMIT Allergy & Immunology; ATTEND Allergy & Immunology
PROC: HZ2ZZZZ Detoxification Services for Substance Abuse Treatment (ICD-10-PCS; principal; 2021-08-06)
DX: F10.230 Alcohol dependence with withdrawal, uncomplicated (principal); F14.20 Cocaine dependence, uncomplicated; F19.282 Other psychoactive substance dependence with psychoactive substance-induced sleep disorder; F31.9 Bipolar disorder, unspecified; F25.9 Schizoaffective disorder, unspecified; I10 Essential (primary) hypertension; E11.9 Type 2 diabetes mellitus without complications; J45.20 Mild intermittent asthma, uncomplicated; E78.5 Hyperlipidemia, unspecified; K21.9 Gastro-esophageal reflux disease without esophagitis; E66.9 Obesity, unspecified; Z68.33 Body mass index [BMI] 33.0-33.9, adult; Z79.84 Long term (current) use of oral hypoglycemic drugs; Z88.0 Allergy status to penicillin
CPT/HCPCS: 36415; 80053; 82962; 85027; 86780; C9803; U0003; U0005

== ENCOUNTER 2022-06-23 09:40 | Inpatient (IN) | payer OTHER ==
[2022-06-23 10:21] VITALS: BMI 31.3
[2022-06-23] MEDS ORDERED: MAG HYDROX/AL HYDROX/SIMETH 30 ML UNIT-DOSE CUP PO PRN (10:57)
[2022-06-23] MEDS ORDERED: BENZOCAINE/MENTHOL (CHLORASEPTIC ) LOZENGE MM PRN (10:57)
[2022-06-23] MEDS ORDERED: ONDANSETRON *ODT* 4 MG TABLET SL PRN (10:57)
[2022-06-23] MEDS ORDERED: DICYCLOMINE HCL 10 MG CAPSULE PO PRN (10:57)
[2022-06-23] MEDS ORDERED: MAGNESIUM CITRATE 300 ML BOTTLE PO PRN (10:57)
[2022-06-23] MEDS ORDERED: NICOTINE 10 MG CARTRIDGE (INHALER) IH PRN (10:57)
[2022-06-23] MEDS ORDERED: BISMUTH SUBSALICYLATE 262 MG/15 ML BTL PO PRN (10:57)
[2022-06-23] MEDS ORDERED: MAGNESIUM HYDROX 2400MG/30ML ORAL SUSPENSION 30 ML CUP PO PRN (10:57)
[2022-06-23] MEDS ORDERED: LOPERAMIDE HCL 2 MG CAPSULE PO PRN (10:57)
[2022-06-23] MEDS ORDERED: IBUPROFEN 600 MG TABLET (FP) PO PRN (10:57)
[2022-06-23] MEDS ORDERED: IBUPROFEN 400 MG TABLET (FP) PO PRN (10:57)
[2022-06-23] MEDS ORDERED: chlordiazePOXIDE HCL 25 MG CAPSULE PO PRN (10:57)
[2022-06-23] MEDS ORDERED: ACETAMINOPHEN 325 MG TABLET (FP) PO PRN (10:57)
[2022-06-23] MEDS: chlordiazePOXIDE HCL 25 MG CAPSULE PO SCH ×3 (12:27→22:07)
[2022-06-23] MEDS: PRENATAL VITAMINS W/ FOLIC ACID TABLET (FP) PO SCH (12:27)
[2022-06-23 14:28] LABS: HEMATOCRIT 39.4 % (35.4-49); HEMOGLOBIN 13.5 GM/dL (11.7-16.9); MCH 30.6 pg (25.7-33.7); MCHC 34.4 g/dl (32.0-35.9); MEAN CELL VOLUME 89.1 fl (80-96); MEAN PLT VOLUME 8.7 fl (7.5-11.1); PLATELET COUNT 194 10^3/uL (134-434); RBC 4.42 M/mm3 (4.00-5.60); RDW 13.7 % (11.9-15.9); WHITE BLOOD COUNT 4.4 K/mm3 (4.0-10.0)
[2022-06-23 14:32] LABS: CHLORIDE 95 mmol/L (98-107); SODIUM 130 mmol/L (136-145)
[2022-06-23 14:38] LABS: CALCIUM 9.5 mg/dL (8.5-10.1)
[2022-06-23 14:39] LABS: ALBUMIN 3.8 g/dl (3.4-5.0); ANION GAP 12 MMOL/L (8-16); BLOOD UREA NITROGEN 10.4 mg/dL (7-18); CO2 23 mmol/L (21-32)
[2022-06-23 14:42] LABS: SGOT/AST 29 U/L (15-37); SGPT/ALT 82 U/L (13-61)
[2022-06-23 14:44] LABS: BILIRUBIN,TOTAL 0.3 mg/dL (0.2-1); TOT PROT 7.5 g/dl (6.4-8.2)
[2022-06-23 14:46] LABS: ALK PHOS 63 U/L (45-117); GLUCOSE,RANDOM 515 mg/dL (74-106)
[2022-06-23] MEDS ORDERED: ALBUTEROL SO4 HFA INHALER IH PRN (14:52)
[2022-06-23] MEDS ORDERED: INSULIN (NOVOLOG) ASPART 100 UNITS/ML 10ML VIAL SQ ONE (14:57)
[2022-06-23] MEDS: hydrOXYzine PAMOATE 25 MG CAPSULE (FP) PO SCH ×3 (15:19→22:09)
[2022-06-23] MEDS ORDERED: INSULIN (NOVOLOG) ASPART 100 UNITS/ML 10ML VIAL ONE (17:40)
[2022-06-23] MEDS: metFORMIN HCL 500 MG TABLET (FP) PO SCH (17:55)
[2022-06-23] MEDS: glipiZIDE 5 MG TABLET (FP) PO SCH (17:56)
[2022-06-23] MEDS: INSULIN (NOVOLOG) ASPART 100 UNITS/ML 10ML VIAL SQ SCH ×2 (17:59→23:03)
[2022-06-23] MEDS ORDERED: MELATONIN 5 MG TABLETS PO SCH (22:00)
[2022-06-23] MEDS: THIAMINE HCL 100 MG TABLET (FP) PO SCH (22:07)
[2022-06-23] MEDS: BUDESONIDE/FORMETEROL FUMARATE 80/4.5 mcg INHALER IH SCH (22:10)
[2022-06-23] MEDS ORDERED: QUEtiapine FUMARATE 100 MG TABLET (FP) PO ONE (22:52)
[2022-06-24] MEDS: hydrOXYzine PAMOATE 25 MG CAPSULE (FP) PO SCH ×5 (06:14→22:39)
[2022-06-24] MEDS: metFORMIN HCL 500 MG TABLET (FP) PO SCH ×2 (06:14→16:41)
[2022-06-24] MEDS: chlordiazePOXIDE HCL 25 MG CAPSULE PO SCH ×4 (06:15→22:40)
[2022-06-24] MEDS: glipiZIDE 5 MG TABLET (FP) PO SCH ×2 (06:15→16:41)
[2022-06-24] MEDS ORDERED: INSULIN (NOVOLOG) ASPART 100 UNITS/ML 10ML VIAL ONE ×3 (06:17→16:32)
[2022-06-24] MEDS: INSULIN (NOVOLOG) ASPART 100 UNITS/ML 10ML VIAL SQ SCH ×4 (06:17→22:39)
[2022-06-24] MEDS: ACETAMINOPHEN 325 MG TABLET (FP) PO PRN (07:15)
[2022-06-24] MEDS: LOSARTAN POTASSIUM 50 MG TABLET PO SCH (10:18)
[2022-06-24] MEDS: BUDESONIDE/FORMETEROL FUMARATE 80/4.5 mcg INHALER IH SCH ×2 (10:19→22:40)
[2022-06-24] MEDS: PRENATAL VITAMINS W/ FOLIC ACID TABLET (FP) PO SCH (10:19)
[2022-06-24] MEDS: THIAMINE HCL 100 MG TABLET (FP) PO SCH (22:39)
[2022-06-24] MEDS: QUEtiapine FUMARATE 400 MG TABLET PO SCH (22:40)
[2022-06-25] MEDS: hydrOXYzine PAMOATE 25 MG CAPSULE (FP) PO SCH ×5 (05:45→22:55)
[2022-06-25] MEDS: chlordiazePOXIDE HCL 25 MG CAPSULE PO SCH ×4 (06:09→23:01)
[2022-06-25] MEDS: glipiZIDE 5 MG TABLET (FP) PO SCH ×2 (06:10→17:25)
[2022-06-25] MEDS: INSULIN (NOVOLOG) ASPART 100 UNITS/ML 10ML VIAL SQ SCH ×4 (06:10→23:05)
[2022-06-25] MEDS: metFORMIN HCL 500 MG TABLET (FP) PO SCH ×2 (06:11→17:25)
[2022-06-25] MEDS: BUDESONIDE/FORMETEROL FUMARATE 80/4.5 mcg INHALER IH SCH ×2 (10:31→22:54)
[2022-06-25] MEDS: PRENATAL VITAMINS W/ FOLIC ACID TABLET (FP) PO SCH (10:31)
[2022-06-25] MEDS: LOSARTAN POTASSIUM 50 MG TABLET PO SCH (10:31)
[2022-06-25] MEDS ORDERED: INSULIN (NOVOLOG) ASPART 100 UNITS/ML 10ML VIAL ONE (17:27)
[2022-06-25] MEDS: THIAMINE HCL 100 MG TABLET (FP) PO SCH (22:54)
[2022-06-25] MEDS: QUEtiapine FUMARATE 400 MG TABLET PO SCH (22:54)
[2022-06-26] MEDS ORDERED: chlordiazePOXIDE HCL 10 MG CAPSULE PO PRN
[2022-06-26] MEDS: metFORMIN HCL 500 MG TABLET (FP) PO SCH ×2 (06:02→17:54)
[2022-06-26] MEDS: glipiZIDE 5 MG TABLET (FP) PO SCH ×2 (06:02→17:57)
[2022-06-26] MEDS: hydrOXYzine PAMOATE 25 MG CAPSULE (FP) PO SCH ×5 (06:03→22:16)
[2022-06-26] MEDS: chlordiazePOXIDE HCL 10 MG CAPSULE PO SCH ×4 (06:03→23:23)
[2022-06-26] MEDS: INSULIN (NOVOLOG) ASPART 100 UNITS/ML 10ML VIAL SQ SCH ×4 (08:10→22:17)
[2022-06-26] MEDS: LOSARTAN POTASSIUM 50 MG TABLET PO SCH (10:49)
[2022-06-26] MEDS: PRENATAL VITAMINS W/ FOLIC ACID TABLET (FP) PO SCH (10:49)
[2022-06-26] MEDS: BUDESONIDE/FORMETEROL FUMARATE 80/4.5 mcg INHALER IH SCH ×2 (10:50→22:15)
[2022-06-26] MEDS: SERTRALINE HCL 50 MG TABLET (FP) PO SCH (14:50)
[2022-06-26] MEDS ORDERED: INSULIN (NOVOLOG) ASPART 100 UNITS/ML 10ML VIAL ONE (17:53)
[2022-06-26] MEDS: ACETAMINOPHEN 325 MG TABLET (FP) PO PRN (18:22)
[2022-06-26] MEDS: QUEtiapine FUMARATE 400 MG TABLET PO SCH (22:15)
[2022-06-26] MEDS: THIAMINE HCL 100 MG TABLET (FP) PO SCH (22:16)
[2022-06-27] MEDS: chlordiazePOXIDE HCL 10 MG CAPSULE PO SCH ×2 (05:28→18:11)
[2022-06-27] MEDS: hydrOXYzine PAMOATE 25 MG CAPSULE (FP) PO SCH ×5 (05:31→23:16)
[2022-06-27] MEDS: glipiZIDE 5 MG TABLET (FP) PO SCH ×2 (07:00→18:11)
[2022-06-27] MEDS: INSULIN (NOVOLOG) ASPART 100 UNITS/ML 10ML VIAL SQ SCH ×4 (07:00→23:15)
[2022-06-27] MEDS: metFORMIN HCL 500 MG TABLET (FP) PO SCH ×2 (07:00→18:11)
[2022-06-27] MEDS: PRENATAL VITAMINS W/ FOLIC ACID TABLET (FP) PO SCH (09:41)
[2022-06-27] MEDS: METHOCARBAMOL 500 MG TABLET PO PRN (09:41)
[2022-06-27] MEDS: ACETAMINOPHEN 325 MG TABLET (FP) PO PRN (09:41)
[2022-06-27] MEDS: LOSARTAN POTASSIUM 50 MG TABLET PO SCH (09:42)
[2022-06-27] MEDS: BUDESONIDE/FORMETEROL FUMARATE 80/4.5 mcg INHALER IH SCH ×2 (09:42→23:15)
[2022-06-27] MEDS: SERTRALINE HCL 50 MG TABLET (FP) PO SCH (09:42)
[2022-06-27] MEDS: QUEtiapine FUMARATE 400 MG TABLET PO SCH (22:06)
[2022-06-27] MEDS: THIAMINE HCL 100 MG TABLET (FP) PO SCH (23:16)
[2022-06-28] MEDS ORDERED: chlordiazePOXIDE HCL 10 MG CAPSULE PO ONE (05:00)
[2022-06-28] MEDS: metFORMIN HCL 500 MG TABLET (FP) PO SCH (06:55)
[2022-06-28] MEDS: glipiZIDE 5 MG TABLET (FP) PO SCH (06:56)
[2022-06-28] MEDS: hydrOXYzine PAMOATE 25 MG CAPSULE (FP) PO SCH ×3 (06:56→13:25)
[2022-06-28] MEDS: INSULIN (NOVOLOG) ASPART 100 UNITS/ML 10ML VIAL SQ SCH ×2 (07:11→12:09)
[2022-06-28] MEDS: SERTRALINE HCL 50 MG TABLET (FP) PO SCH (10:38)
[2022-06-28] MEDS: LOSARTAN POTASSIUM 50 MG TABLET PO SCH (10:38)
[2022-06-28] MEDS: PRENATAL VITAMINS W/ FOLIC ACID TABLET (FP) PO SCH (10:38)
[2022-06-28] MEDS: BUDESONIDE/FORMETEROL FUMARATE 80/4.5 mcg INHALER IH SCH (10:39)
[2022-06-28] MEDS: METHOCARBAMOL 500 MG TABLET PO PRN (10:39)
[2022-06-28 12:51] VITALS: BP 123/60; PULSE 57; RESP 18; TEMP 97.5
== END 2022-06-28 15:30 | disposition home or self-care (01) | DRG 897 ==
LOC: YASAS 09:40 → SUATTDRO 09:40 → Y6N 11:23
PROVIDERS: ADMIT Allergy & Immunology; ATTEND Surgery
PROC: HZ2ZZZZ Detoxification Services for Substance Abuse Treatment (ICD-10-PCS; principal; 2022-06-23)
DX: F10.230 Alcohol dependence with withdrawal, uncomplicated (principal); F14.20 Cocaine dependence, uncomplicated; F19.282 Other psychoactive substance dependence with psychoactive substance-induced sleep disorder; F31.9 Bipolar disorder, unspecified; F19.24 Other psychoactive substance dependence with psychoactive substance-induced mood disorder; E78.5 Hyperlipidemia, unspecified; I10 Essential (primary) hypertension; K21.9 Gastro-esophageal reflux disease without esophagitis; E11.9 Type 2 diabetes mellitus without complications; J45.909 Unspecified asthma, uncomplicated; E66.9 Obesity, unspecified; Z68.31 Body mass index [BMI] 31.0-31.9, adult; Z79.84 Long term (current) use of oral hypoglycemic drugs; Z88.0 Allergy status to penicillin
CPT/HCPCS: 36415; 80053; 82962; 85027; 86780; 87811; C9803-CS; U0003; U0005

== ENCOUNTER 2022-07-31 10:06 | Inpatient (IN) | payer OTHER ==
[2022-07-31 10:53] VITALS: BMI 32.8
[2022-07-31] MEDS ORDERED: DICYCLOMINE HCL 10 MG CAPSULE PO PRN (11:05)
[2022-07-31] MEDS ORDERED: chlordiazePOXIDE HCL 25 MG CAPSULE PO PRN (11:05)
[2022-07-31] MEDS ORDERED: BENZOCAINE/MENTHOL (CHLORASEPTIC ) LOZENGE MM PRN (11:05)
[2022-07-31] MEDS ORDERED: BISMUTH SUBSALICYLATE 524 MG/30 ML PO PRN (11:05)
[2022-07-31] MEDS ORDERED: NALOXONE HCL (KLOXXADO) 8 MG SPRAY NS PRN (11:05)
[2022-07-31] MEDS ORDERED: IBUPROFEN 400 MG TABLET (FP) PO PRN (11:05)
[2022-07-31] MEDS ORDERED: ONDANSETRON *ODT* 4 MG TABLET SL PRN (11:05)
[2022-07-31] MEDS ORDERED: ACETAMINOPHEN 325 MG TABLET (FP) PO PRN (11:05)
[2022-07-31] MEDS ORDERED: LOPERAMIDE HCL 2 MG CAPSULE PO PRN (11:05)
[2022-07-31] MEDS ORDERED: IBUPROFEN 600 MG TABLET (FP) PO PRN (11:05)
[2022-07-31] MEDS ORDERED: METHOCARBAMOL 500 MG TABLET PO PRN (11:05)
[2022-07-31] MEDS ORDERED: MAGNESIUM HYDROX 2400MG/30ML ORAL SUSPENSION 30 ML CUP PO PRN (11:05)
[2022-07-31] MEDS ORDERED: MAGNESIUM CITRATE 300 ML BOTTLE PO PRN (11:05)
[2022-07-31] MEDS: PRENATAL VITAMINS W/ FOLIC ACID TABLET (FP) PO SCH (11:57)
[2022-07-31] MEDS ORDERED: ALBUTEROL SO4 HFA INHALER IH PRN (11:58)
[2022-07-31] MEDS: INSULIN SLIDING SCALE (NOVOLOG) 1 VIAL SQ SCH ×3 (12:41→21:32)
[2022-07-31] MEDS: MAG HYDROX/AL HYDROX/SIMETH 30 ML UNIT-DOSE CUP PO PRN (13:41)
[2022-07-31] MEDS: hydrOXYzine PAMOATE 25 MG CAPSULE (FP) PO SCH ×3 (13:41→22:14)
[2022-07-31 14:49] LABS: HEMATOCRIT 42.4 % (35.4-49); HEMOGLOBIN 14.4 GM/dL (11.7-16.9); MCH 30.6 pg (25.7-33.7); MCHC 33.9 g/dl (32.0-35.9); MEAN CELL VOLUME 90.3 fl (80-96); PLATELET COUNT 230 10^3/uL (134-434); WHITE BLOOD COUNT 5.7 K/mm3 (4.0-10.0)
[2022-07-31 14:50] LABS: CALCIUM 9.5 mg/dL (8.5-10.1)
[2022-07-31 14:51] LABS: ALBUMIN 3.9 g/dl (3.4-5.0); BLOOD UREA NITROGEN 10.2 mg/dL (7-18)
[2022-07-31 14:54] LABS: CREATININE 0.9 mg/dL (0.55-1.3)
[2022-07-31 14:55] LABS: TOT PROT 7.6 g/dl (6.4-8.2)
[2022-07-31 14:56] LABS: BILIRUBIN,TOTAL 0.3 mg/dL (0.2-1)
[2022-07-31] MEDS: metFORMIN HCL 500 MG TABLET (FP) PO SCH (17:39)
[2022-07-31] MEDS: glipiZIDE 5 MG TABLET (FP) PO SCH (17:40)
[2022-07-31] MEDS: chlordiazePOXIDE HCL 25 MG CAPSULE PO SCH ×2 (17:41→22:21)
[2022-07-31] MEDS ORDERED: QUEtiapine FUMARATE 100 MG TABLET (FP) PO SCH (22:00)
[2022-07-31] MEDS: MELATONIN 5 MG TABLETS PO SCH (22:14)
[2022-07-31] MEDS: THIAMINE HCL 100 MG TABLET (FP) PO SCH (22:14)
[2022-07-31] MEDS: ATORVASTATIN CA 10 MG TABLET (FP) PO SCH (22:14)
[2022-07-31] MEDS: BUDESONIDE/FORMETEROL FUMARATE 80/4.5 mcg INHALER IH SCH (22:16)
[2022-08-01] MEDS: hydrOXYzine PAMOATE 25 MG CAPSULE (FP) PO SCH ×5 (05:16→22:06)
[2022-08-01] MEDS: chlordiazePOXIDE HCL 25 MG CAPSULE PO SCH ×4 (05:16→22:08)
[2022-08-01] MEDS: metFORMIN HCL 500 MG TABLET (FP) PO SCH ×2 (07:18→17:41)
[2022-08-01] MEDS: INSULIN SLIDING SCALE (NOVOLOG) 1 VIAL SQ SCH ×4 (07:19→22:08)
[2022-08-01] MEDS: glipiZIDE 5 MG TABLET (FP) PO SCH ×2 (07:19→17:41)
[2022-08-01] MEDS: SERTRALINE HCL 50 MG TABLET (FP) PO SCH (10:04)
[2022-08-01] MEDS: PRENATAL VITAMINS W/ FOLIC ACID TABLET (FP) PO SCH (10:04)
[2022-08-01] MEDS: LOSARTAN POTASSIUM 50 MG TABLET PO SCH (10:04)
[2022-08-01] MEDS: BUDESONIDE/FORMETEROL FUMARATE 80/4.5 mcg INHALER IH SCH ×2 (10:32→22:05)
[2022-08-01] MEDS: MAG HYDROX/AL HYDROX/SIMETH 30 ML UNIT-DOSE CUP PO PRN (10:51)
[2022-08-01] MEDS: ACETAMINOPHEN 325 MG TABLET (FP) PO PRN (19:02)
[2022-08-01] MEDS: ATORVASTATIN CA 10 MG TABLET (FP) PO SCH (22:06)
[2022-08-01] MEDS: QUEtiapine FUMARATE 400 MG TABLET PO SCH (22:06)
[2022-08-01] MEDS: MELATONIN 5 MG TABLETS PO SCH (22:06)
[2022-08-01] MEDS: THIAMINE HCL 100 MG TABLET (FP) PO SCH (22:06)
[2022-08-02] MEDS: metFORMIN HCL 500 MG TABLET (FP) PO SCH ×2 (06:14→16:52)
[2022-08-02] MEDS: hydrOXYzine PAMOATE 25 MG CAPSULE (FP) PO SCH ×5 (06:14→22:04)
[2022-08-02] MEDS: chlordiazePOXIDE HCL 25 MG CAPSULE PO SCH ×4 (06:15→22:05)
[2022-08-02] MEDS: glipiZIDE 5 MG TABLET (FP) PO SCH ×2 (06:52→16:53)
[2022-08-02] MEDS: INSULIN SLIDING SCALE (NOVOLOG) 1 VIAL SQ SCH ×4 (06:53→21:27)
[2022-08-02] MEDS: LOSARTAN POTASSIUM 50 MG TABLET PO SCH (10:24)
[2022-08-02] MEDS: PRENATAL VITAMINS W/ FOLIC ACID TABLET (FP) PO SCH (10:24)
[2022-08-02] MEDS: SERTRALINE HCL 50 MG TABLET (FP) PO SCH (10:24)
[2022-08-02] MEDS: BUDESONIDE/FORMETEROL FUMARATE 80/4.5 mcg INHALER IH SCH ×2 (10:25→22:04)
[2022-08-02] MEDS: ACETAMINOPHEN 325 MG TABLET (FP) PO PRN (16:49)
[2022-08-02 21:23] VITALS: RESP 18
[2022-08-02] MEDS: MELATONIN 5 MG TABLETS PO SCH (22:04)
[2022-08-02] MEDS: ATORVASTATIN CA 10 MG TABLET (FP) PO SCH (22:04)
[2022-08-02] MEDS: QUEtiapine FUMARATE 400 MG TABLET PO SCH (22:05)
[2022-08-02] MEDS: THIAMINE HCL 100 MG TABLET (FP) PO SCH (22:05)
[2022-08-03] MEDS ORDERED: chlordiazePOXIDE HCL 10 MG CAPSULE PO PRN
[2022-08-03] MEDS: hydrOXYzine PAMOATE 25 MG CAPSULE (FP) PO SCH ×5 (05:30→22:05)
[2022-08-03] MEDS: chlordiazePOXIDE HCL 10 MG CAPSULE PO SCH ×4 (05:31→22:26)
[2022-08-03] MEDS: metFORMIN HCL 500 MG TABLET (FP) PO SCH ×2 (06:03→17:24)
[2022-08-03] MEDS: glipiZIDE 5 MG TABLET (FP) PO SCH ×2 (06:04→17:25)
[2022-08-03] MEDS: INSULIN SLIDING SCALE (NOVOLOG) 1 VIAL SQ SCH ×4 (08:08→21:54)
[2022-08-03] MEDS: SERTRALINE HCL 50 MG TABLET (FP) PO SCH (10:33)
[2022-08-03] MEDS: LOSARTAN POTASSIUM 50 MG TABLET PO SCH (10:33)
[2022-08-03] MEDS: PRENATAL VITAMINS W/ FOLIC ACID TABLET (FP) PO SCH (10:34)
[2022-08-03] MEDS: BUDESONIDE/FORMETEROL FUMARATE 80/4.5 mcg INHALER IH SCH ×2 (10:34→22:06)
[2022-08-03] MEDS: THIAMINE HCL 100 MG TABLET (FP) PO SCH (22:05)
[2022-08-03] MEDS: QUEtiapine FUMARATE 400 MG TABLET PO SCH (22:05)
[2022-08-03] MEDS: ATORVASTATIN CA 10 MG TABLET (FP) PO SCH (22:05)
[2022-08-03] MEDS: MELATONIN 5 MG TABLETS PO SCH (22:06)
[2022-08-04] MEDS ORDERED: chlordiazePOXIDE HCL 10 MG CAPSULE PO SCH (05:00)
[2022-08-04] MEDS: hydrOXYzine PAMOATE 25 MG CAPSULE (FP) PO SCH ×2 (05:34→10:08)
[2022-08-04] MEDS: INSULIN SLIDING SCALE (NOVOLOG) 1 VIAL SQ SCH ×2 (05:59→10:52)
[2022-08-04] MEDS: glipiZIDE 5 MG TABLET (FP) PO SCH (06:01)
[2022-08-04] MEDS: metFORMIN HCL 500 MG TABLET (FP) PO SCH (06:01)
[2022-08-04 09:06] VITALS: BP 107/61; PULSE 58; TEMP 97.1
[2022-08-04] MEDS: LOSARTAN POTASSIUM 50 MG TABLET PO SCH (10:09)
[2022-08-04] MEDS: SERTRALINE HCL 50 MG TABLET (FP) PO SCH (10:09)
[2022-08-04] MEDS: PRENATAL VITAMINS W/ FOLIC ACID TABLET (FP) PO SCH (10:52)
[2022-08-04] MEDS: BUDESONIDE/FORMETEROL FUMARATE 80/4.5 mcg INHALER IH SCH (10:52)
[2022-08-05] MEDS ORDERED: chlordiazePOXIDE HCL 10 MG CAPSULE PO ONE (05:00)
== END 2022-08-04 12:17 | disposition other institution (70) | DRG 897 ==
LOC: YASAS 10:06 → Y3N 11:17
PROVIDERS: ADMIT Allergy & Immunology; ATTEND Surgery
PROC: HZ2ZZZZ Detoxification Services for Substance Abuse Treatment (ICD-10-PCS; principal; 2022-07-31)
DX: F10.230 Alcohol dependence with withdrawal, uncomplicated (principal); F14.20 Cocaine dependence, uncomplicated; F31.81 Bipolar II disorder; F19.24 Other psychoactive substance dependence with psychoactive substance-induced mood disorder; G47.00 Insomnia, unspecified; I10 Essential (primary) hypertension; E78.5 Hyperlipidemia, unspecified; E11.9 Type 2 diabetes mellitus without complications; Z79.84 Long term (current) use of oral hypoglycemic drugs; E66.9 Obesity, unspecified; Z68.32 Body mass index [BMI] 32.0-32.9, adult; Z88.0 Allergy status to penicillin
CPT/HCPCS: 36415; 80053; 82962; 85027; 86780; C9803-CS; U0003; U0005

== ENCOUNTER 2022-08-04 12:35 | Inpatient (IN) | payer OTHER ==
[2022-08-04] MEDS ORDERED: FLU VACC QS2022-23(6MOS UP)/PF 60 MCG/0.5 ML SYRINGE IM ONE (13:00)
[2022-08-04] MEDS ORDERED: MAGNESIUM HYDROX 2400MG/30ML ORAL SUSPENSION 30 ML CUP PO PRN (13:31)
[2022-08-04] MEDS ORDERED: MAG HYDROX/AL HYDROX/SIMETH 30 ML UNIT-DOSE CUP PO PRN (13:31)
[2022-08-04] MEDS ORDERED: ACETAMINOPHEN 325 MG TABLET (FP) PO PRN (13:31)
[2022-08-04] MEDS ORDERED: NICOTINE 10 MG CARTRIDGE (INHALER) IH PRN (13:31)
[2022-08-04] MEDS ORDERED: LOPERAMIDE HCL 2 MG CAPSULE PO PRN (13:31)
[2022-08-04] MEDS ORDERED: IBUPROFEN 400 MG TABLET (FP) PO PRN (13:31)
[2022-08-04] MEDS ORDERED: P-EPHED 60MG/TRIPROLIDI 2.5MG TABLET PO PRN (13:31)
[2022-08-04] MEDS ORDERED: BENZOCAINE/MENTHOL (CHLORASEPTIC ) LOZENGE MM PRN (13:31)
[2022-08-04] MEDS ORDERED: guaiFENesin 200 MG/10 ML 10 ML UNIT-DOSE CUPS PO PRN (13:31)
[2022-08-04] MEDS ORDERED: MAGNESIUM CITRATE 300 ML BOTTLE PO PRN (13:31)
[2022-08-04] MEDS ORDERED: ALBUTEROL SO4 HFA INHALER IH PRN (13:37)
[2022-08-04] MEDS: glipiZIDE 5 MG TABLET (FP) PO SCH (16:57)
[2022-08-04] MEDS: metFORMIN HCL 500 MG TABLET (FP) PO SCH (16:57)
[2022-08-04] MEDS: hydrOXYzine PAMOATE 25 MG CAPSULE (FP) PO PRN (16:58)
[2022-08-04] MEDS: ATORVASTATIN CA 10 MG TABLET (FP) PO SCH (21:53)
[2022-08-04] MEDS: BUDESONIDE/FORMETEROL FUMARATE 80/4.5 mcg INHALER IH SCH (21:53)
[2022-08-04] MEDS: THIAMINE HCL 100 MG TABLET (FP) PO SCH (21:53)
[2022-08-04] MEDS: MELATONIN 5 MG TABLETS PO SCH (21:53)
[2022-08-04] MEDS: QUEtiapine FUMARATE 400 MG TABLET PO SCH (21:53)
[2022-08-05] MEDS: hydrOXYzine PAMOATE 25 MG CAPSULE (FP) PO PRN ×2 (06:19→18:48)
[2022-08-05] MEDS: metFORMIN HCL 500 MG TABLET (FP) PO SCH ×2 (06:19→17:38)
[2022-08-05] MEDS: glipiZIDE 5 MG TABLET (FP) PO SCH ×2 (06:19→17:38)
[2022-08-05] MEDS: BUDESONIDE/FORMETEROL FUMARATE 80/4.5 mcg INHALER IH SCH ×2 (10:08→21:36)
[2022-08-05] MEDS: LOSARTAN POTASSIUM 50 MG TABLET PO SCH (10:09)
[2022-08-05] MEDS: PRENATAL VITAMINS W/ FOLIC ACID TABLET (FP) PO SCH (10:09)
[2022-08-05] MEDS: NICOTINE 7 MG/24 HOURS TOPICAL PATCH TD SCH (10:09)
[2022-08-05] MEDS: THIAMINE HCL 100 MG TABLET (FP) PO SCH (21:36)
[2022-08-05] MEDS: ATORVASTATIN CA 10 MG TABLET (FP) PO SCH (21:36)
[2022-08-05] MEDS: QUEtiapine FUMARATE 400 MG TABLET PO SCH (21:36)
[2022-08-05] MEDS: MELATONIN 5 MG TABLETS PO SCH (21:36)
[2022-08-06] MEDS: metFORMIN HCL 500 MG TABLET (FP) PO SCH ×2 (06:25→16:37)
[2022-08-06] MEDS: glipiZIDE 5 MG TABLET (FP) PO SCH ×2 (06:25→16:37)
[2022-08-06] MEDS: hydrOXYzine PAMOATE 25 MG CAPSULE (FP) PO PRN ×2 (06:26→09:54)
[2022-08-06] MEDS: LOSARTAN POTASSIUM 50 MG TABLET PO SCH (09:53)
[2022-08-06] MEDS: BUDESONIDE/FORMETEROL FUMARATE 80/4.5 mcg INHALER IH SCH ×2 (09:53→22:10)
[2022-08-06] MEDS: PRENATAL VITAMINS W/ FOLIC ACID TABLET (FP) PO SCH (09:54)
[2022-08-06] MEDS: NICOTINE 7 MG/24 HOURS TOPICAL PATCH TD SCH (09:54)
[2022-08-06] MEDS: QUEtiapine FUMARATE 400 MG TABLET PO SCH (22:09)
[2022-08-06] MEDS: MELATONIN 5 MG TABLETS PO SCH (22:10)
[2022-08-06] MEDS: ATORVASTATIN CA 10 MG TABLET (FP) PO SCH (22:10)
[2022-08-06] MEDS: THIAMINE HCL 100 MG TABLET (FP) PO SCH (22:10)
[2022-08-07] MEDS: hydrOXYzine PAMOATE 25 MG CAPSULE (FP) PO PRN ×2 (06:17→16:54)
[2022-08-07] MEDS: metFORMIN HCL 500 MG TABLET (FP) PO SCH ×2 (06:17→16:54)
[2022-08-07] MEDS: glipiZIDE 5 MG TABLET (FP) PO SCH ×2 (06:17→16:54)
[2022-08-07] MEDS: PRENATAL VITAMINS W/ FOLIC ACID TABLET (FP) PO SCH (09:52)
[2022-08-07] MEDS: LOSARTAN POTASSIUM 50 MG TABLET PO SCH (09:52)
[2022-08-07] MEDS: NICOTINE 7 MG/24 HOURS TOPICAL PATCH TD SCH (09:53)
[2022-08-07] MEDS: BUDESONIDE/FORMETEROL FUMARATE 80/4.5 mcg INHALER IH SCH ×2 (09:53→22:35)
[2022-08-07] MEDS: QUEtiapine FUMARATE 400 MG TABLET PO SCH (22:33)
[2022-08-07] MEDS: ATORVASTATIN CA 10 MG TABLET (FP) PO SCH (22:34)
[2022-08-07] MEDS: MELATONIN 5 MG TABLETS PO SCH (22:34)
[2022-08-07] MEDS: THIAMINE HCL 100 MG TABLET (FP) PO SCH (22:35)
[2022-08-08] MEDS: glipiZIDE 5 MG TABLET (FP) PO SCH ×2 (06:39→17:00)
[2022-08-08] MEDS: hydrOXYzine PAMOATE 25 MG CAPSULE (FP) PO PRN (06:39)
[2022-08-08] MEDS: metFORMIN HCL 500 MG TABLET (FP) PO SCH ×2 (06:39→17:00)
[2022-08-08] MEDS: PRENATAL VITAMINS W/ FOLIC ACID TABLET (FP) PO SCH (10:09)
[2022-08-08] MEDS: NICOTINE 7 MG/24 HOURS TOPICAL PATCH TD SCH (10:09)
[2022-08-08] MEDS: LOSARTAN POTASSIUM 50 MG TABLET PO SCH (10:09)
[2022-08-08] MEDS: BUDESONIDE/FORMETEROL FUMARATE 80/4.5 mcg INHALER IH SCH ×2 (10:09→22:20)
[2022-08-08] MEDS: THIAMINE HCL 100 MG TABLET (FP) PO SCH (22:19)
[2022-08-08] MEDS: MELATONIN 5 MG TABLETS PO SCH (22:19)
[2022-08-08] MEDS: QUEtiapine FUMARATE 400 MG TABLET PO SCH (22:19)
[2022-08-08] MEDS: ATORVASTATIN CA 10 MG TABLET (FP) PO SCH (22:20)
[2022-08-09] MEDS: metFORMIN HCL 500 MG TABLET (FP) PO SCH ×2 (06:25→16:56)
[2022-08-09] MEDS: glipiZIDE 5 MG TABLET (FP) PO SCH ×2 (06:25→16:56)
[2022-08-09] MEDS: hydrOXYzine PAMOATE 25 MG CAPSULE (FP) PO PRN ×2 (06:25→16:56)
[2022-08-09] MEDS: BUDESONIDE/FORMETEROL FUMARATE 80/4.5 mcg INHALER IH SCH ×2 (10:21→22:00)
[2022-08-09] MEDS: PRENATAL VITAMINS W/ FOLIC ACID TABLET (FP) PO SCH (10:21)
[2022-08-09] MEDS: LOSARTAN POTASSIUM 50 MG TABLET PO SCH (10:21)
[2022-08-09] MEDS: NICOTINE 7 MG/24 HOURS TOPICAL PATCH TD SCH (10:21)
[2022-08-09] MEDS: THIAMINE HCL 100 MG TABLET (FP) PO SCH (21:59)
[2022-08-09] MEDS: ATORVASTATIN CA 10 MG TABLET (FP) PO SCH (21:59)
[2022-08-09] MEDS: MELATONIN 5 MG TABLETS PO SCH (22:00)
[2022-08-09] MEDS: QUEtiapine FUMARATE 400 MG TABLET PO SCH (22:00)
[2022-08-10] MEDS: hydrOXYzine PAMOATE 25 MG CAPSULE (FP) PO PRN ×2 (06:29→16:55)
[2022-08-10] MEDS: metFORMIN HCL 500 MG TABLET (FP) PO SCH ×2 (06:30→16:55)
[2022-08-10] MEDS: glipiZIDE 5 MG TABLET (FP) PO SCH ×2 (06:30→16:55)
[2022-08-10] MEDS: LOSARTAN POTASSIUM 50 MG TABLET PO SCH (10:06)
[2022-08-10] MEDS: PRENATAL VITAMINS W/ FOLIC ACID TABLET (FP) PO SCH (10:06)
[2022-08-10] MEDS: BUDESONIDE/FORMETEROL FUMARATE 80/4.5 mcg INHALER IH SCH ×2 (10:07→22:25)
[2022-08-10] MEDS: NICOTINE 7 MG/24 HOURS TOPICAL PATCH TD SCH (10:07)
[2022-08-10] MEDS: MELATONIN 5 MG TABLETS PO SCH (22:25)
[2022-08-10] MEDS: ATORVASTATIN CA 10 MG TABLET (FP) PO SCH (22:25)
[2022-08-10] MEDS: QUEtiapine FUMARATE 400 MG TABLET PO SCH (22:25)
[2022-08-10] MEDS: THIAMINE HCL 100 MG TABLET (FP) PO SCH (22:25)
[2022-08-11] MEDS: hydrOXYzine PAMOATE 25 MG CAPSULE (FP) PO PRN ×2 (06:25→18:35)
[2022-08-11] MEDS: glipiZIDE 5 MG TABLET (FP) PO SCH ×2 (06:25→17:15)
[2022-08-11] MEDS: metFORMIN HCL 500 MG TABLET (FP) PO SCH ×2 (06:25→17:15)
[2022-08-11] MEDS: LOSARTAN POTASSIUM 50 MG TABLET PO SCH (10:03)
[2022-08-11] MEDS: NICOTINE 7 MG/24 HOURS TOPICAL PATCH TD SCH (10:03)
[2022-08-11] MEDS: BUDESONIDE/FORMETEROL FUMARATE 80/4.5 mcg INHALER IH SCH ×2 (10:03→21:49)
[2022-08-11] MEDS: PRENATAL VITAMINS W/ FOLIC ACID TABLET (FP) PO SCH (10:03)
[2022-08-11] MEDS: QUEtiapine FUMARATE 400 MG TABLET PO SCH (21:49)
[2022-08-11] MEDS: MELATONIN 5 MG TABLETS PO SCH (21:49)
[2022-08-11] MEDS: THIAMINE HCL 100 MG TABLET (FP) PO SCH (21:49)
[2022-08-11] MEDS: ATORVASTATIN CA 10 MG TABLET (FP) PO SCH (21:49)
[2022-08-12] MEDS: glipiZIDE 5 MG TABLET (FP) PO SCH ×2 (06:26→16:53)
[2022-08-12] MEDS: metFORMIN HCL 500 MG TABLET (FP) PO SCH ×2 (06:26→16:52)
[2022-08-12] MEDS: PRENATAL VITAMINS W/ FOLIC ACID TABLET (FP) PO SCH (10:01)
[2022-08-12] MEDS: BUDESONIDE/FORMETEROL FUMARATE 80/4.5 mcg INHALER IH SCH ×2 (10:02→22:07)
[2022-08-12] MEDS: LOSARTAN POTASSIUM 50 MG TABLET PO SCH (10:02)
[2022-08-12] MEDS: NICOTINE 7 MG/24 HOURS TOPICAL PATCH TD SCH (10:02)
[2022-08-12] MEDS: hydrOXYzine PAMOATE 25 MG CAPSULE (FP) PO PRN (14:44)
[2022-08-12] MEDS: ATORVASTATIN CA 10 MG TABLET (FP) PO SCH (22:08)
[2022-08-12] MEDS: MELATONIN 5 MG TABLETS PO SCH (22:08)
[2022-08-12] MEDS: QUEtiapine FUMARATE 400 MG TABLET PO SCH (22:08)
[2022-08-12] MEDS: THIAMINE HCL 100 MG TABLET (FP) PO SCH (22:08)
[2022-08-13] MEDS: glipiZIDE 5 MG TABLET (FP) PO SCH ×2 (06:21→16:30)
[2022-08-13] MEDS: metFORMIN HCL 500 MG TABLET (FP) PO SCH ×2 (06:21→16:30)
[2022-08-13] MEDS: BUDESONIDE/FORMETEROL FUMARATE 80/4.5 mcg INHALER IH SCH ×2 (10:25→22:14)
[2022-08-13] MEDS: NICOTINE 7 MG/24 HOURS TOPICAL PATCH TD SCH (10:26)
[2022-08-13] MEDS: LOSARTAN POTASSIUM 50 MG TABLET PO SCH (10:26)
[2022-08-13] MEDS: hydrOXYzine PAMOATE 25 MG CAPSULE (FP) PO PRN ×2 (10:26→16:30)
[2022-08-13] MEDS: PRENATAL VITAMINS W/ FOLIC ACID TABLET (FP) PO SCH (10:26)
[2022-08-13] MEDS: THIAMINE HCL 100 MG TABLET (FP) PO SCH (22:14)
[2022-08-13] MEDS: ATORVASTATIN CA 10 MG TABLET (FP) PO SCH (22:14)
[2022-08-13] MEDS: QUEtiapine FUMARATE 400 MG TABLET PO SCH (22:14)
[2022-08-13] MEDS: MELATONIN 5 MG TABLETS PO SCH (22:14)
[2022-08-14] MEDS: glipiZIDE 5 MG TABLET (FP) PO SCH ×2 (06:29→16:43)
[2022-08-14] MEDS: metFORMIN HCL 500 MG TABLET (FP) PO SCH ×2 (06:30→16:42)
[2022-08-14] MEDS: hydrOXYzine PAMOATE 25 MG CAPSULE (FP) PO PRN ×2 (06:30→16:43)
[2022-08-14] MEDS: LOSARTAN POTASSIUM 50 MG TABLET PO SCH (10:38)
[2022-08-14] MEDS: PRENATAL VITAMINS W/ FOLIC ACID TABLET (FP) PO SCH (10:38)
[2022-08-14] MEDS: NICOTINE 7 MG/24 HOURS TOPICAL PATCH TD SCH (10:52)
[2022-08-14] MEDS: BUDESONIDE/FORMETEROL FUMARATE 80/4.5 mcg INHALER IH SCH ×2 (10:52→22:38)
[2022-08-14] MEDS: ATORVASTATIN CA 10 MG TABLET (FP) PO SCH (22:37)
[2022-08-14] MEDS: QUEtiapine FUMARATE 400 MG TABLET PO SCH (22:38)
[2022-08-14] MEDS: MELATONIN 5 MG TABLETS PO SCH (22:38)
[2022-08-14] MEDS: THIAMINE HCL 100 MG TABLET (FP) PO SCH (22:39)
[2022-08-15] MEDS: glipiZIDE 5 MG TABLET (FP) PO SCH ×2 (06:10→17:18)
[2022-08-15] MEDS: metFORMIN HCL 500 MG TABLET (FP) PO SCH ×2 (06:10→17:18)
[2022-08-15] MEDS: hydrOXYzine PAMOATE 25 MG CAPSULE (FP) PO PRN ×3 (06:11→15:31)
[2022-08-15] MEDS: BUDESONIDE/FORMETEROL FUMARATE 80/4.5 mcg INHALER IH SCH ×2 (10:46→22:21)
[2022-08-15] MEDS: LOSARTAN POTASSIUM 50 MG TABLET PO SCH (10:46)
[2022-08-15] MEDS: NICOTINE 7 MG/24 HOURS TOPICAL PATCH TD SCH (10:47)
[2022-08-15] MEDS: PRENATAL VITAMINS W/ FOLIC ACID TABLET (FP) PO SCH (10:47)
[2022-08-15] MEDS: MELATONIN 5 MG TABLETS PO SCH (22:20)
[2022-08-15] MEDS: QUEtiapine FUMARATE 400 MG TABLET PO SCH (22:20)
[2022-08-15] MEDS: ATORVASTATIN CA 10 MG TABLET (FP) PO SCH (22:20)
[2022-08-15] MEDS: THIAMINE HCL 100 MG TABLET (FP) PO SCH (22:21)
[2022-08-16] MEDS: glipiZIDE 5 MG TABLET (FP) PO SCH ×2 (06:14→16:48)
[2022-08-16] MEDS: hydrOXYzine PAMOATE 25 MG CAPSULE (FP) PO PRN ×2 (06:14→16:48)
[2022-08-16] MEDS: metFORMIN HCL 500 MG TABLET (FP) PO SCH ×2 (06:15→16:48)
[2022-08-16 07:07] VITALS: RESP 18
[2022-08-16] MEDS: PRENATAL VITAMINS W/ FOLIC ACID TABLET (FP) PO SCH (09:51)
[2022-08-16] MEDS: BUDESONIDE/FORMETEROL FUMARATE 80/4.5 mcg INHALER IH SCH ×2 (09:51→21:10)
[2022-08-16] MEDS: LOSARTAN POTASSIUM 50 MG TABLET PO SCH (09:51)
[2022-08-16] MEDS: NICOTINE 7 MG/24 HOURS TOPICAL PATCH TD SCH (09:52)
[2022-08-16] MEDS: ATORVASTATIN CA 10 MG TABLET (FP) PO SCH (22:36)
[2022-08-16] MEDS: QUEtiapine FUMARATE 400 MG TABLET PO SCH (22:36)
[2022-08-16] MEDS: MELATONIN 5 MG TABLETS PO SCH (22:36)
[2022-08-16] MEDS: THIAMINE HCL 100 MG TABLET (FP) PO SCH (22:37)
[2022-08-17] MEDS: metFORMIN HCL 500 MG TABLET (FP) PO SCH (06:22)
[2022-08-17] MEDS: glipiZIDE 5 MG TABLET (FP) PO SCH (06:23)
[2022-08-17] MEDS: hydrOXYzine PAMOATE 25 MG CAPSULE (FP) PO PRN (06:23)
[2022-08-17 06:58] VITALS: BP 114/69; PULSE 58; TEMP 97.5
== END 2022-08-17 09:51 | disposition home or self-care (01) | DRG 895 ==
LOC: YASAS 12:35 → Y3W 12:36
PROVIDERS: ADMIT Allergy & Immunology; ATTEND Psychiatry & Neurology Pain Medicine
PROC: HZ42ZZZ Group Counseling for Substance Abuse Treatment, Cognitive-Behavioral (ICD-10-PCS; principal; 2022-08-04)
DX: F10.20 Alcohol dependence, uncomplicated (principal); F14.20 Cocaine dependence, uncomplicated; F19.282 Other psychoactive substance dependence with psychoactive substance-induced sleep disorder; F31.81 Bipolar II disorder; F10.282 Alcohol dependence with alcohol-induced sleep disorder; F10.24 Alcohol dependence with alcohol-induced mood disorder; F19.24 Other psychoactive substance dependence with psychoactive substance-induced mood disorder; E78.5 Hyperlipidemia, unspecified; I10 Essential (primary) hypertension; J45.20 Mild intermittent asthma, uncomplicated; E11.9 Type 2 diabetes mellitus without complications; Z79.84 Long term (current) use of oral hypoglycemic drugs; Z88.0 Allergy status to penicillin
CPT/HCPCS: 82962; G0008; Q2036

== ENCOUNTER 2023-02-01 09:21 | Inpatient (IN) | payer OTHER ==
[2023-02-01] MEDS ORDERED: DICYCLOMINE HCL 10 MG CAPSULE PO PRN (09:55)
[2023-02-01] MEDS ORDERED: NALOXONE HCL (KLOXXADO) 8 MG SPRAY NS PRN (09:55)
[2023-02-01] MEDS ORDERED: guaiFENesin 600 MG TABLET.ER (FP) PO PRN (09:55)
[2023-02-01] MEDS ORDERED: BISMUTH SUBSALICYLATE 262 MG/15 ML BTL PO PRN (09:55)
[2023-02-01] MEDS ORDERED: POLYETHYLENE GLYCOL (HEALTHYLAX) 3350 17 GM PACKET PO PRN (09:55)
[2023-02-01] MEDS ORDERED: NALOXONE HCL 0.4 MG/ML VIAL IM PRN (09:55)
[2023-02-01] MEDS ORDERED: LOPERAMIDE HCL 2 MG CAPSULE PO PRN (09:55)
[2023-02-01] MEDS ORDERED: BENZONATATE 200 MG CAPSULE PO PRN (09:55)
[2023-02-01] MEDS ORDERED: MAG HYDROX/AL HYDROX/SIMETH 30 ML UNIT-DOSE CUP PO PRN (09:55)
[2023-02-01] MEDS ORDERED: IBUPROFEN 600 MG TABLET (FP) PO PRN (09:55)
[2023-02-01] MEDS ORDERED: ACETAMINOPHEN 325 MG TABLET (FP) PO PRN (09:55)
[2023-02-01] MEDS ORDERED: ONDANSETRON *ODT* 4 MG TABLET SL PRN (09:55)
[2023-02-01] MEDS ORDERED: IBUPROFEN 400 MG TABLET (FP) PO PRN (09:55)
[2023-02-01] MEDS ORDERED: BENZOCAINE/MENTHOL (CHLORASEPTIC ) LOZENGE MM PRN (09:55)
[2023-02-01] MEDS ORDERED: MAGNESIUM HYDROX 2400MG/30ML ORAL SUSPENSION 30 ML CUP PO PRN (09:55)
[2023-02-01] MEDS ORDERED: chlordiazePOXIDE HCL 25 MG CAPSULE PO PRN (09:55)
[2023-02-01] MEDS ORDERED: TAMSULOSIN HCL 0.4 MG CAP PO SCH (10:00)
[2023-02-01] MEDS ORDERED: metFORMIN HCL 500 MG TABLET (FP) PO SCH (10:00)
[2023-02-01] MEDS ORDERED: LOSARTAN POTASSIUM 50 MG TABLET PO SCH (10:00)
[2023-02-01 10:01] VITALS: BMI 32.2
[2023-02-01] MEDS ORDERED: chlordiazePOXIDE HCL 25 MG CAPSULE ONE (10:24)
[2023-02-01] MEDS ORDERED: PRENATAL VITAMINS W/ FOLIC ACID TABLET (FP) PO ONE (10:25)
[2023-02-01] MEDS: PRENATAL VITAMINS W/ FOLIC ACID TABLET (FP) PO SCH (10:31)
[2023-02-01] MEDS: chlordiazePOXIDE HCL 25 MG CAPSULE PO SCH ×3 (10:31→22:08)
[2023-02-01] MEDS: BUDESONIDE/FORMETEROL FUMARATE 80/4.5 mcg INHALER IH SCH ×2 (11:10→22:05)
[2023-02-01] MEDS: INSULIN SLIDING SCALE (NOVOLOG) 1 VIAL SQ SCH ×2 (11:30→16:50)
[2023-02-01] MEDS: SERTRALINE HCL 50 MG TABLET (FP) PO SCH (13:19)
[2023-02-01] MEDS ORDERED: INSULIN (NOVOLOG) ASPART 100 UNITS/ML 10ML VIAL ONE (16:21)
[2023-02-01] MEDS ORDERED: glipiZIDE 5 MG TABLET (FP) PO SCH (16:30)
[2023-02-01] MEDS: glipiZIDE 5 MG TABLET (FP) PO SCH (17:10)
[2023-02-01] MEDS: metFORMIN HCL 500 MG TABLET (FP) PO SCH (17:10)
[2023-02-01 18:43] LABS: HEMATOCRIT 41.5 % (35.4-49); HEMOGLOBIN 13.8 GM/dL (11.7-16.9); MCH 29.7 pg (25.7-33.7); MCHC 33.1 g/dl (32.0-35.9); MEAN CELL VOLUME 89.6 fl (80-96); MEAN PLT VOLUME 8.9 fl (7.5-11.1); PLATELET COUNT 229 10^3/uL (134-434); RBC 4.64 M/mm3 (4.00-5.60); RDW 13.4 % (11.9-15.9); WHITE BLOOD COUNT 5.3 K/mm3 (4.0-10.0)
[2023-02-01 19:00] LABS: ALBUMIN 3.9 g/dl (3.4-5.0); CALCIUM 10.2 mg/dL (8.5-10.1)
[2023-02-01 19:01] LABS: BLOOD UREA NITROGEN 14.1 mg/dL (7-18)
[2023-02-01 19:03] LABS: CREATININE 0.8 mg/dL (0.55-1.3)
[2023-02-01 19:05] LABS: BILIRUBIN,TOTAL 0.4 mg/dL (0.2-1); TOT PROT 7.1 g/dl (6.4-8.2)
[2023-02-01 19:46] LABS: HIV INTERPRETATION NEGATIVE (NEGATIVE)
[2023-02-01] MEDS ORDERED: ATORVASTATIN CA 10 MG TABLET (FP) PO SCH (22:00)
[2023-02-01] MEDS ORDERED: MELATONIN 5 MG TABLETS PO SCH (22:00)
[2023-02-01] MEDS: QUEtiapine FUMARATE 400 MG TABLET PO SCH (22:07)
[2023-02-01] MEDS: ATORVASTATIN CA 10 MG TABLET (FP) PO SCH (22:07)
[2023-02-01] MEDS: THIAMINE HCL 100 MG TABLET (FP) PO SCH (22:07)
[2023-02-02] MEDS: chlordiazePOXIDE HCL 25 MG CAPSULE PO SCH ×4 (05:15→22:11)
[2023-02-02] MEDS: metFORMIN HCL 500 MG TABLET (FP) PO SCH ×2 (06:06→16:44)
[2023-02-02] MEDS: glipiZIDE 5 MG TABLET (FP) PO SCH ×2 (06:07→17:43)
[2023-02-02] MEDS: INSULIN SLIDING SCALE (NOVOLOG) 1 VIAL SQ SCH ×3 (07:25→17:48)
[2023-02-02] MEDS: TAMSULOSIN HCL 0.4 MG CAP PO SCH (09:19)
[2023-02-02] MEDS ORDERED: ATORVASTATIN CA 10 MG TABLET (FP) PO SCH (10:00)
[2023-02-02] MEDS: BUDESONIDE/FORMETEROL FUMARATE 80/4.5 mcg INHALER IH SCH ×2 (10:09→22:13)
[2023-02-02] MEDS: PRENATAL VITAMINS W/ FOLIC ACID TABLET (FP) PO SCH (10:09)
[2023-02-02] MEDS: LOSARTAN POTASSIUM 50 MG TABLET PO SCH (10:09)
[2023-02-02] MEDS: SERTRALINE HCL 50 MG TABLET (FP) PO SCH (10:10)
[2023-02-02] MEDS: hydrOXYzine PAMOATE 25 MG CAPSULE (FP) PO PRN (13:42)
[2023-02-02] MEDS ORDERED: INSULIN (NOVOLOG) ASPART 100 UNITS/ML 10ML VIAL ONE (17:01)
[2023-02-02] MEDS: QUEtiapine FUMARATE 400 MG TABLET PO SCH (22:10)
[2023-02-02] MEDS: THIAMINE HCL 100 MG TABLET (FP) PO SCH (22:10)
[2023-02-02] MEDS: ATORVASTATIN CA 10 MG TABLET (FP) PO SCH (22:10)
[2023-02-03] MEDS: chlordiazePOXIDE HCL 25 MG CAPSULE PO SCH ×4 (05:46→22:03)
[2023-02-03] MEDS: hydrOXYzine PAMOATE 25 MG CAPSULE (FP) PO PRN ×2 (05:47→15:18)
[2023-02-03] MEDS: ALBUTEROL SO4 HFA INHALER IH PRN ×2 (05:54→22:50)
[2023-02-03] MEDS: metFORMIN HCL 500 MG TABLET (FP) PO SCH ×2 (06:08→17:18)
[2023-02-03] MEDS: INSULIN SLIDING SCALE (NOVOLOG) 1 VIAL SQ SCH ×4 (06:09→17:23)
[2023-02-03] MEDS: glipiZIDE 5 MG TABLET (FP) PO SCH ×2 (06:09→17:19)
[2023-02-03] MEDS: TAMSULOSIN HCL 0.4 MG CAP PO SCH (07:34)
[2023-02-03] MEDS: PRENATAL VITAMINS W/ FOLIC ACID TABLET (FP) PO SCH (11:02)
[2023-02-03] MEDS: SERTRALINE HCL 50 MG TABLET (FP) PO SCH (11:03)
[2023-02-03] MEDS: BUDESONIDE/FORMETEROL FUMARATE 80/4.5 mcg INHALER IH SCH ×2 (11:03→22:03)
[2023-02-03] MEDS: LOSARTAN POTASSIUM 50 MG TABLET PO SCH (11:03)
[2023-02-03] MEDS ORDERED: INSULIN (NOVOLOG) ASPART 100 UNITS/ML 10ML VIAL ONE ×2 (11:42→17:02)
[2023-02-03] MEDS: METHOCARBAMOL 500 MG TABLET PO PRN (15:18)
[2023-02-03] MEDS: QUEtiapine FUMARATE 400 MG TABLET PO SCH (22:02)
[2023-02-03] MEDS: ATORVASTATIN CA 10 MG TABLET (FP) PO SCH (22:02)
[2023-02-03] MEDS: THIAMINE HCL 100 MG TABLET (FP) PO SCH (22:03)
[2023-02-04] MEDS ORDERED: chlordiazePOXIDE HCL 10 MG CAPSULE PO PRN
[2023-02-04] MEDS: chlordiazePOXIDE HCL 10 MG CAPSULE PO SCH ×4 (06:00→22:02)
[2023-02-04] MEDS: glipiZIDE 5 MG TABLET (FP) PO SCH ×2 (06:04→16:54)
[2023-02-04] MEDS: metFORMIN HCL 500 MG TABLET (FP) PO SCH ×2 (06:05→16:54)
[2023-02-04] MEDS: INSULIN SLIDING SCALE (NOVOLOG) 1 VIAL SQ SCH ×3 (06:07→16:57)
[2023-02-04] MEDS ORDERED: INSULIN (NOVOLOG) ASPART 100 UNITS/ML 10ML VIAL ONE ×3 (06:08→16:56)
[2023-02-04] MEDS: TAMSULOSIN HCL 0.4 MG CAP PO SCH (08:23)
[2023-02-04] MEDS: hydrOXYzine PAMOATE 25 MG CAPSULE (FP) PO PRN (10:11)
[2023-02-04] MEDS: SERTRALINE HCL 50 MG TABLET (FP) PO SCH (10:11)
[2023-02-04] MEDS: BUDESONIDE/FORMETEROL FUMARATE 80/4.5 mcg INHALER IH SCH ×2 (10:12→22:03)
[2023-02-04] MEDS: PRENATAL VITAMINS W/ FOLIC ACID TABLET (FP) PO SCH (10:12)
[2023-02-04] MEDS: LOSARTAN POTASSIUM 50 MG TABLET PO SCH (10:12)
[2023-02-04] MEDS: ALBUTEROL SO4 HFA INHALER IH PRN ×2 (10:15→19:44)
[2023-02-04] MEDS ORDERED: BISACODYL 5 MG TABLET.DR (FP) PO ONE (10:36)
[2023-02-04] MEDS ORDERED: SODIUM PHOSPHATE/NA BIPHOS 133 ML ENEMA RC ONE (11:58)
[2023-02-04] MEDS: DOCUSATE SODIUM 100 MG CAPSULE (FP) PO SCH ×2 (13:13→22:01)
[2023-02-04] MEDS: QUEtiapine FUMARATE 400 MG TABLET PO SCH (22:01)
[2023-02-04] MEDS: THIAMINE HCL 100 MG TABLET (FP) PO SCH (22:01)
[2023-02-04] MEDS: ATORVASTATIN CA 10 MG TABLET (FP) PO SCH (22:01)
[2023-02-05] MEDS: chlordiazePOXIDE HCL 10 MG CAPSULE PO SCH ×2 (06:02→17:40)
[2023-02-05] MEDS: DOCUSATE SODIUM 100 MG CAPSULE (FP) PO SCH ×3 (06:02→22:01)
[2023-02-05] MEDS: glipiZIDE 5 MG TABLET (FP) PO SCH ×2 (06:07→17:40)
[2023-02-05] MEDS: metFORMIN HCL 500 MG TABLET (FP) PO SCH ×2 (06:07→17:20)
[2023-02-05] MEDS: INSULIN SLIDING SCALE (NOVOLOG) 1 VIAL SQ SCH ×3 (06:07→17:20)
[2023-02-05] MEDS ORDERED: INSULIN (NOVOLOG) ASPART 100 UNITS/ML 10ML VIAL ONE ×3 (06:09→16:52)
[2023-02-05] MEDS: TAMSULOSIN HCL 0.4 MG CAP PO SCH (08:02)
[2023-02-05] MEDS: LOSARTAN POTASSIUM 50 MG TABLET PO SCH (10:44)
[2023-02-05] MEDS: PRENATAL VITAMINS W/ FOLIC ACID TABLET (FP) PO SCH (10:44)
[2023-02-05] MEDS: SERTRALINE HCL 50 MG TABLET (FP) PO SCH (10:44)
[2023-02-05] MEDS: BUDESONIDE/FORMETEROL FUMARATE 80/4.5 mcg INHALER IH SCH ×2 (10:45→22:01)
[2023-02-05] MEDS: hydrOXYzine PAMOATE 25 MG CAPSULE (FP) PO PRN (12:53)
[2023-02-05] MEDS: THIAMINE HCL 100 MG TABLET (FP) PO SCH (22:01)
[2023-02-05] MEDS: QUEtiapine FUMARATE 400 MG TABLET PO SCH (22:01)
[2023-02-05] MEDS: ATORVASTATIN CA 10 MG TABLET (FP) PO SCH (22:01)
[2023-02-06] MEDS ORDERED: chlordiazePOXIDE HCL 10 MG CAPSULE PO ONE (05:00)
[2023-02-06] MEDS: DOCUSATE SODIUM 100 MG CAPSULE (FP) PO SCH ×2 (05:49→13:23)
[2023-02-06] MEDS: metFORMIN HCL 500 MG TABLET (FP) PO SCH (06:03)
[2023-02-06] MEDS: glipiZIDE 5 MG TABLET (FP) PO SCH (06:04)
[2023-02-06] MEDS: INSULIN SLIDING SCALE (NOVOLOG) 1 VIAL SQ SCH ×2 (07:37→11:50)
[2023-02-06] MEDS ORDERED: INSULIN (NOVOLOG) ASPART 100 UNITS/ML 10ML VIAL ONE ×2 (07:39→11:51)
[2023-02-06] MEDS: TAMSULOSIN HCL 0.4 MG CAP PO SCH (07:43)
[2023-02-06 09:35] VITALS: TEMP 98.2
[2023-02-06] MEDS: PRENATAL VITAMINS W/ FOLIC ACID TABLET (FP) PO SCH (10:09)
[2023-02-06] MEDS: hydrOXYzine PAMOATE 25 MG CAPSULE (FP) PO PRN (10:09)
[2023-02-06] MEDS: SERTRALINE HCL 50 MG TABLET (FP) PO SCH (10:09)
[2023-02-06] MEDS: LOSARTAN POTASSIUM 50 MG TABLET PO SCH (10:09)
[2023-02-06] MEDS: BUDESONIDE/FORMETEROL FUMARATE 80/4.5 mcg INHALER IH SCH (10:48)
[2023-02-06] MEDS: METHOCARBAMOL 500 MG TABLET PO PRN (13:23)
[2023-02-06 14:13] VITALS: BP 136/74; PULSE 65; RESP 18
== END 2023-02-06 14:35 | disposition other institution (70) | DRG 897 ==
LOC: YASAS 09:21 → Y6N 10:40
PROVIDERS: ADMIT Allergy & Immunology; ATTEND Surgery
PROC: HZ2ZZZZ Detoxification Services for Substance Abuse Treatment (ICD-10-PCS; principal; 2023-02-01)
DX: F10.230 Alcohol dependence with withdrawal, uncomplicated (principal); F14.20 Cocaine dependence, uncomplicated; F19.282 Other psychoactive substance dependence with psychoactive substance-induced sleep disorder; F19.280 Other psychoactive substance dependence with psychoactive substance-induced anxiety disorder; F12.20 Cannabis dependence, uncomplicated; F10.24 Alcohol dependence with alcohol-induced mood disorder; F31.9 Bipolar disorder, unspecified; E78.5 Hyperlipidemia, unspecified; I10 Essential (primary) hypertension; J45.909 Unspecified asthma, uncomplicated; K21.9 Gastro-esophageal reflux disease without esophagitis; E11.65 Type 2 diabetes mellitus with hyperglycemia; Z79.84 Long term (current) use of oral hypoglycemic drugs; N40.0 Benign prostatic hyperplasia without lower urinary tract symptoms; E66.9 Obesity, unspecified; Z68.32 Body mass index [BMI] 32.0-32.9, adult; Z88.0 Allergy status to penicillin
CPT/HCPCS: 36415; 80053; 82962; 85027; 86780; 87389; C9803-CS; U0003; U0005

== ENCOUNTER 2023-02-06 14:28 | Inpatient (IN) | payer OTHER ==
[2023-02-06] MEDS ORDERED: MAGNESIUM HYDROX 2400MG/30ML ORAL SUSPENSION 30 ML CUP PO PRN (15:45)
[2023-02-06] MEDS ORDERED: guaiFENesin 600 MG TABLET.ER (FP) PO PRN (15:45)
[2023-02-06] MEDS ORDERED: IBUPROFEN 400 MG TABLET (FP) PO PRN (15:45)
[2023-02-06] MEDS ORDERED: MAG HYDROX/AL HYDROX/SIMETH 30 ML UNIT-DOSE CUP PO PRN (15:45)
[2023-02-06] MEDS ORDERED: BENZONATATE 200 MG CAPSULE PO PRN (15:45)
[2023-02-06] MEDS ORDERED: IBUPROFEN 600 MG TABLET (FP) PO PRN (15:45)
[2023-02-06] MEDS ORDERED: BENZOCAINE/MENTHOL (CHLORASEPTIC ) LOZENGE MM PRN (15:45)
[2023-02-06] MEDS ORDERED: LOPERAMIDE HCL 2 MG CAPSULE PO PRN (15:45)
[2023-02-06] MEDS ORDERED: POLYETHYLENE GLYCOL (HEALTHYLAX) 3350 17 GM PACKET PO PRN (15:45)
[2023-02-06] MEDS ORDERED: NICOTINE 10 MG CARTRIDGE (INHALER) IH PRN (15:45)
[2023-02-06] MEDS ORDERED: METHOCARBAMOL 500 MG TABLET PO PRN (15:45)
[2023-02-06] MEDS ORDERED: ACETAMINOPHEN 325 MG TABLET (FP) PO PRN (15:45)
[2023-02-06] MEDS ORDERED: NALOXONE HCL 0.4 MG/ML VIAL IVPUSH PRN (15:45)
[2023-02-06] MEDS ORDERED: NALOXONE HCL (KLOXXADO) 8 MG SPRAY NS PRN (15:45)
[2023-02-06] MEDS ORDERED: ALBUTEROL SO4 HFA INHALER IH PRN (15:52)
[2023-02-06] MEDS: glipiZIDE 5 MG TABLET (FP) PO SCH (16:52)
[2023-02-06] MEDS: metFORMIN HCL 500 MG TABLET (FP) PO SCH (16:52)
[2023-02-06] MEDS: QUEtiapine FUMARATE 400 MG TABLET PO SCH (22:04)
[2023-02-06] MEDS: MELATONIN 5 MG TABLETS PO SCH (22:04)
[2023-02-06] MEDS: BUDESONIDE/FORMETEROL FUMARATE 80/4.5 mcg INHALER IH SCH (22:04)
[2023-02-06] MEDS: THIAMINE HCL 100 MG TABLET (FP) PO SCH (22:05)
[2023-02-06] MEDS: DOCUSATE SODIUM 100 MG CAPSULE (FP) PO SCH (22:05)
[2023-02-06] MEDS: ATORVASTATIN CA 10 MG TABLET (FP) PO SCH (22:05)
[2023-02-07] MEDS: DOCUSATE SODIUM 100 MG CAPSULE (FP) PO SCH ×3 (06:27→21:39)
[2023-02-07] MEDS: metFORMIN HCL 500 MG TABLET (FP) PO SCH ×2 (06:27→17:00)
[2023-02-07] MEDS: glipiZIDE 5 MG TABLET (FP) PO SCH ×2 (06:27→17:00)
[2023-02-07] MEDS: hydrOXYzine PAMOATE 25 MG CAPSULE (FP) PO PRN ×2 (06:28→18:10)
[2023-02-07] MEDS: SERTRALINE HCL 50 MG TABLET (FP) PO SCH (10:00)
[2023-02-07] MEDS: TAMSULOSIN HCL 0.4 MG CAP PO SCH (10:00)
[2023-02-07] MEDS: LOSARTAN POTASSIUM 50 MG TABLET PO SCH (10:00)
[2023-02-07] MEDS: BUDESONIDE/FORMETEROL FUMARATE 80/4.5 mcg INHALER IH SCH ×2 (10:00→21:39)
[2023-02-07] MEDS: PRENATAL VITAMINS W/ FOLIC ACID TABLET (FP) PO SCH (10:00)
[2023-02-07] MEDS ORDERED: SENNOSIDES/DOCUSATE COMBO (SENNA PLUS) TABLET (UD) PO SCH (10:00)
[2023-02-07] MEDS: MELATONIN 5 MG TABLETS PO SCH (21:38)
[2023-02-07] MEDS: QUEtiapine FUMARATE 400 MG TABLET PO SCH (21:39)
[2023-02-07] MEDS: ATORVASTATIN CA 10 MG TABLET (FP) PO SCH (21:39)
[2023-02-07] MEDS: THIAMINE HCL 100 MG TABLET (FP) PO SCH (21:39)
[2023-02-08] MEDS: metFORMIN HCL 500 MG TABLET (FP) PO SCH ×2 (06:26→16:28)
[2023-02-08] MEDS: glipiZIDE 5 MG TABLET (FP) PO SCH ×2 (06:26→16:29)
[2023-02-08] MEDS: DOCUSATE SODIUM 100 MG CAPSULE (FP) PO SCH ×3 (06:26→21:30)
[2023-02-08] MEDS: hydrOXYzine PAMOATE 25 MG CAPSULE (FP) PO PRN (06:27)
[2023-02-08] MEDS: BUDESONIDE/FORMETEROL FUMARATE 80/4.5 mcg INHALER IH SCH ×2 (10:04→21:29)
[2023-02-08] MEDS: PRENATAL VITAMINS W/ FOLIC ACID TABLET (FP) PO SCH (10:05)
[2023-02-08] MEDS: SERTRALINE HCL 50 MG TABLET (FP) PO SCH (10:05)
[2023-02-08] MEDS: TAMSULOSIN HCL 0.4 MG CAP PO SCH (10:05)
[2023-02-08] MEDS: LOSARTAN POTASSIUM 50 MG TABLET PO SCH (10:49)
[2023-02-08] MEDS: hydrOXYzine PAMOATE 50 MG CAPSULE (FP) PO PRN (16:30)
[2023-02-08] MEDS: MELATONIN 5 MG TABLETS PO SCH (21:30)
[2023-02-08] MEDS: ATORVASTATIN CA 10 MG TABLET (FP) PO SCH (21:30)
[2023-02-08] MEDS: THIAMINE HCL 100 MG TABLET (FP) PO SCH (21:30)
[2023-02-08] MEDS: QUEtiapine FUMARATE 400 MG TABLET PO SCH (21:30)
[2023-02-09] MEDS: hydrOXYzine PAMOATE 50 MG CAPSULE (FP) PO PRN ×2 (06:27→14:52)
[2023-02-09] MEDS: DOCUSATE SODIUM 100 MG CAPSULE (FP) PO SCH ×3 (06:27→21:54)
[2023-02-09] MEDS: metFORMIN HCL 500 MG TABLET (FP) PO SCH ×2 (06:27→17:05)
[2023-02-09] MEDS: glipiZIDE 5 MG TABLET (FP) PO SCH ×2 (06:27→17:05)
[2023-02-09] MEDS: PRENATAL VITAMINS W/ FOLIC ACID TABLET (FP) PO SCH (09:50)
[2023-02-09] MEDS: SERTRALINE HCL 50 MG TABLET (FP) PO SCH (09:50)
[2023-02-09] MEDS: BUDESONIDE/FORMETEROL FUMARATE 80/4.5 mcg INHALER IH SCH ×2 (09:50→21:53)
[2023-02-09] MEDS: TAMSULOSIN HCL 0.4 MG CAP PO SCH (09:50)
[2023-02-09] MEDS: LOSARTAN POTASSIUM 50 MG TABLET PO SCH (09:51)
[2023-02-09] MEDS: ATORVASTATIN CA 10 MG TABLET (FP) PO SCH (21:53)
[2023-02-09] MEDS: MELATONIN 5 MG TABLETS PO SCH (21:53)
[2023-02-09] MEDS: QUEtiapine FUMARATE 400 MG TABLET PO SCH (21:53)
[2023-02-09] MEDS: THIAMINE HCL 100 MG TABLET (FP) PO SCH (21:54)
[2023-02-10] MEDS: glipiZIDE 5 MG TABLET (FP) PO SCH ×2 (06:02→16:48)
[2023-02-10] MEDS: hydrOXYzine PAMOATE 50 MG CAPSULE (FP) PO PRN ×2 (06:02→21:46)
[2023-02-10] MEDS: metFORMIN HCL 500 MG TABLET (FP) PO SCH ×2 (06:02→16:48)
[2023-02-10] MEDS: DOCUSATE SODIUM 100 MG CAPSULE (FP) PO SCH ×3 (06:02→21:43)
[2023-02-10 07:52] VITALS: RESP 18
[2023-02-10] MEDS: BUDESONIDE/FORMETEROL FUMARATE 80/4.5 mcg INHALER IH SCH ×2 (09:55→21:43)
[2023-02-10] MEDS: SERTRALINE HCL 50 MG TABLET (FP) PO SCH (09:55)
[2023-02-10] MEDS: TAMSULOSIN HCL 0.4 MG CAP PO SCH (09:55)
[2023-02-10] MEDS: PRENATAL VITAMINS W/ FOLIC ACID TABLET (FP) PO SCH (09:55)
[2023-02-10] MEDS: LOSARTAN POTASSIUM 50 MG TABLET PO SCH (09:55)
[2023-02-10] MEDS: ATORVASTATIN CA 10 MG TABLET (FP) PO SCH (21:43)
[2023-02-10] MEDS: MELATONIN 5 MG TABLETS PO SCH (21:44)
[2023-02-10] MEDS: THIAMINE HCL 100 MG TABLET (FP) PO SCH (21:44)
[2023-02-10] MEDS: QUEtiapine FUMARATE 400 MG TABLET PO SCH (21:47)
[2023-02-11] MEDS: metFORMIN HCL 500 MG TABLET (FP) PO SCH ×2 (06:31→16:45)
[2023-02-11] MEDS: glipiZIDE 5 MG TABLET (FP) PO SCH ×2 (06:31→16:45)
[2023-02-11] MEDS: DOCUSATE SODIUM 100 MG CAPSULE (FP) PO SCH ×3 (06:31→21:24)
[2023-02-11] MEDS: hydrOXYzine PAMOATE 50 MG CAPSULE (FP) PO PRN ×2 (06:32→21:25)
[2023-02-11] MEDS: SERTRALINE HCL 50 MG TABLET (FP) PO SCH (09:55)
[2023-02-11] MEDS: TAMSULOSIN HCL 0.4 MG CAP PO SCH (09:55)
[2023-02-11] MEDS: LOSARTAN POTASSIUM 50 MG TABLET PO SCH (09:55)
[2023-02-11] MEDS: PRENATAL VITAMINS W/ FOLIC ACID TABLET (FP) PO SCH (09:55)
[2023-02-11] MEDS: BUDESONIDE/FORMETEROL FUMARATE 80/4.5 mcg INHALER IH SCH ×2 (10:09→21:23)
[2023-02-11] MEDS: THIAMINE HCL 100 MG TABLET (FP) PO SCH (21:23)
[2023-02-11] MEDS: MELATONIN 5 MG TABLETS PO SCH (21:23)
[2023-02-11] MEDS: QUEtiapine FUMARATE 400 MG TABLET PO SCH (21:24)
[2023-02-11] MEDS: ATORVASTATIN CA 10 MG TABLET (FP) PO SCH (21:24)
[2023-02-12] MEDS: DOCUSATE SODIUM 100 MG CAPSULE (FP) PO SCH (06:13)
[2023-02-12] MEDS: glipiZIDE 5 MG TABLET (FP) PO SCH (06:13)
[2023-02-12] MEDS: metFORMIN HCL 500 MG TABLET (FP) PO SCH (06:13)
[2023-02-12] MEDS: hydrOXYzine PAMOATE 50 MG CAPSULE (FP) PO PRN (06:15)
[2023-02-12 07:16] VITALS: BP 122/61; PULSE 82; TEMP 97.6
[2023-02-12] MEDS: PRENATAL VITAMINS W/ FOLIC ACID TABLET (FP) PO SCH (09:40)
[2023-02-12] MEDS: LOSARTAN POTASSIUM 50 MG TABLET PO SCH (09:40)
[2023-02-12] MEDS: BUDESONIDE/FORMETEROL FUMARATE 80/4.5 mcg INHALER IH SCH (09:40)
[2023-02-12] MEDS: TAMSULOSIN HCL 0.4 MG CAP PO SCH (09:40)
[2023-02-12] MEDS: SERTRALINE HCL 50 MG TABLET (FP) PO SCH (09:41)
== END 2023-02-12 10:15 | disposition home or self-care (01) | DRG 895 ==
LOC: YASAS 14:28 → Y5N 14:29
PROVIDERS: ADMIT Allergy & Immunology; ATTEND Psychiatry & Neurology Pain Medicine
PROC: HZ42ZZZ Group Counseling for Substance Abuse Treatment, Cognitive-Behavioral (ICD-10-PCS; principal; 2023-02-06)
DX: F10.20 Alcohol dependence, uncomplicated (principal); F14.20 Cocaine dependence, uncomplicated; F19.282 Other psychoactive substance dependence with psychoactive substance-induced sleep disorder; F19.280 Other psychoactive substance dependence with psychoactive substance-induced anxiety disorder; F12.20 Cannabis dependence, uncomplicated; F19.24 Other psychoactive substance dependence with psychoactive substance-induced mood disorder; F10.24 Alcohol dependence with alcohol-induced mood disorder; F31.9 Bipolar disorder, unspecified; I10 Essential (primary) hypertension; E78.5 Hyperlipidemia, unspecified; K21.9 Gastro-esophageal reflux disease without esophagitis; J45.909 Unspecified asthma, uncomplicated; E11.9 Type 2 diabetes mellitus without complications; Z79.84 Long term (current) use of oral hypoglycemic drugs; N40.0 Benign prostatic hyperplasia without lower urinary tract symptoms; E66.9 Obesity, unspecified; Z68.32 Body mass index [BMI] 32.0-32.9, adult; Z88.0 Allergy status to penicillin
CPT/HCPCS: 36415; 82962; 86803

== ENCOUNTER 2023-04-05 09:09 | Inpatient (IN) | payer OTHER ==
[2023-04-05 09:29] VITALS: BMI 32.4
[2023-04-05] MEDS ORDERED: IBUPROFEN 400 MG TABLET (FP) PO PRN (10:26)
[2023-04-05] MEDS ORDERED: BISMUTH SUBSALICYLATE 262 MG/15 ML BTL PO PRN (10:26)
[2023-04-05] MEDS ORDERED: IBUPROFEN 600 MG TABLET (FP) PO PRN (10:26)
[2023-04-05] MEDS ORDERED: NALOXONE HCL 0.4 MG/ML VIAL IM PRN (10:26)
[2023-04-05] MEDS ORDERED: DICYCLOMINE HCL 10 MG CAPSULE PO PRN (10:26)
[2023-04-05] MEDS ORDERED: BENZONATATE 200 MG CAPSULE PO PRN (10:26)
[2023-04-05] MEDS ORDERED: POLYETHYLENE GLYCOL (HEALTHYLAX) 3350 17 GM PACKET PO PRN (10:26)
[2023-04-05] MEDS ORDERED: ONDANSETRON *ODT* 4 MG TABLET SL PRN (10:26)
[2023-04-05] MEDS ORDERED: LOPERAMIDE HCL 2 MG CAPSULE PO PRN (10:26)
[2023-04-05] MEDS ORDERED: BENZOCAINE/MENTHOL (CHLORASEPTIC ) LOZENGE MM PRN (10:26)
[2023-04-05] MEDS ORDERED: chlordiazePOXIDE HCL 25 MG CAPSULE PO PRN (10:26)
[2023-04-05] MEDS ORDERED: NICOTINE 10 MG CARTRIDGE (INHALER) IH PRN (10:26)
[2023-04-05] MEDS ORDERED: MAGNESIUM HYDROX 2400MG/30ML ORAL SUSPENSION 30 ML CUP PO PRN (10:26)
[2023-04-05] MEDS ORDERED: NALOXONE HCL (KLOXXADO) 8 MG SPRAY NS PRN (10:26)
[2023-04-05] MEDS ORDERED: guaiFENesin 600 MG TABLET.ER (FP) PO PRN (10:26)
[2023-04-05] MEDS ORDERED: METHOCARBAMOL 500 MG TABLET PO PRN (10:26)
[2023-04-05] MEDS ORDERED: ALBUTEROL SO4 HFA INHALER IH PRN (10:30)
[2023-04-05] MEDS ORDERED: chlordiazePOXIDE HCL 25 MG CAPSULE ONE (11:06)
[2023-04-05] MEDS: chlordiazePOXIDE HCL 25 MG CAPSULE PO SCH ×3 (11:08→22:26)
[2023-04-05] MEDS: INSULIN SLIDING SCALE (NOVOLOG) 1 VIAL SQ SCH ×3 (12:27→22:33)
[2023-04-05] MEDS ORDERED: INSULIN (NOVOLOG) ASPART 100 UNITS/ML 10ML VIAL ONE (12:28)
[2023-04-05 14:22] LABS: HEMATOCRIT 40.1 % (35.4-49); HEMOGLOBIN 13.9 GM/dL (11.7-16.9); MCH 30.7 pg (25.7-33.7); MCHC 34.6 g/dl (32.0-35.9); MEAN CELL VOLUME 88.7 fl (80-96); MEAN PLT VOLUME 9.6 fl (7.5-11.1); PLATELET COUNT 227 10^3/uL (134-434); RBC 4.52 M/mm3 (4.00-5.60); RDW 13.5 % (11.9-15.9); WHITE BLOOD COUNT 7.3 K/mm3 (4.0-10.0)
[2023-04-05 14:29] LABS: POTASSIUM 4.9 mmol/L (3.5-5.1)
[2023-04-05 14:41] LABS: BLOOD UREA NITROGEN 11.8 mg/dL (7-18); CALCIUM 9.7 mg/dL (8.5-10.1)
[2023-04-05 14:44] LABS: CREATININE 0.9 mg/dL (0.55-1.3)
[2023-04-05 14:45] LABS: BILIRUBIN,TOTAL 0.5 mg/dL (0.2-1); TOT PROT 7.4 g/dl (6.4-8.2)
[2023-04-05] MEDS ORDERED: glipiZIDE 5 MG TABLET (FP) PO SCH (17:00)
[2023-04-05] MEDS: glipiZIDE 5 MG TABLET (FP) PO SCH (17:28)
[2023-04-05] MEDS: metFORMIN HCL 500 MG TABLET (FP) PO SCH (17:28)
[2023-04-05] MEDS ORDERED: MINERAL OIL ENEMA 133 ML ENEMA RC ONE (20:18)
[2023-04-05] MEDS ORDERED: MELATONIN 5 MG TABLETS PO SCH (22:00)
[2023-04-05] MEDS: QUEtiapine FUMARATE 400 MG TABLET PO SCH (22:25)
[2023-04-05] MEDS: LACTULOSE 20 GM/30 ML UDC (FOR ORAL USE ONLY) PO SCH (22:25)
[2023-04-05] MEDS: THIAMINE HCL 100 MG TABLET (FP) PO SCH (22:25)
[2023-04-05] MEDS: ATORVASTATIN CA 10 MG TABLET (FP) PO SCH (22:25)
[2023-04-05] MEDS: BUDESONIDE/FORMETEROL FUMARATE 80/4.5 mcg INHALER IH SCH (22:25)
[2023-04-05] MEDS: DOCUSATE SODIUM 100 MG CAPSULE (FP) PO SCH (23:22)
[2023-04-06] MEDS: chlordiazePOXIDE HCL 25 MG CAPSULE PO SCH ×4 (05:48→22:18)
[2023-04-06] MEDS: glipiZIDE 5 MG TABLET (FP) PO SCH ×2 (07:29→16:49)
[2023-04-06] MEDS: TAMSULOSIN HCL 0.4 MG CAP PO SCH (07:29)
[2023-04-06] MEDS: metFORMIN HCL 500 MG TABLET (FP) PO SCH ×2 (07:29→16:49)
[2023-04-06] MEDS: INSULIN SLIDING SCALE (NOVOLOG) 1 VIAL SQ SCH ×4 (07:29→23:59)
[2023-04-06] MEDS ORDERED: METHYLNALTREXONE BROMIDE 8 MG/0.4 ML SYRINGE SQ ONE (09:46)
[2023-04-06] MEDS: BUDESONIDE/FORMETEROL FUMARATE 80/4.5 mcg INHALER IH SCH ×2 (10:24→22:16)
[2023-04-06] MEDS: PRENATAL VITAMINS W/ FOLIC ACID TABLET (FP) PO SCH (10:26)
[2023-04-06] MEDS: SERTRALINE HCL 50 MG TABLET (FP) PO SCH (10:26)
[2023-04-06] MEDS: LACTULOSE 20 GM/30 ML UDC (FOR ORAL USE ONLY) PO SCH ×2 (10:26→22:18)
[2023-04-06] MEDS: LOSARTAN POTASSIUM 50 MG TABLET PO SCH (10:26)
[2023-04-06] MEDS: POLYETHYLENE GLYCOL (HEALTHYLAX) 3350 17 GM PACKET PO SCH (10:27)
[2023-04-06] MEDS: SENNOSIDES/DOCUSATE COMBO (SENNA PLUS) TABLET (UD) PO SCH (10:27)
[2023-04-06] MEDS: DOCUSATE SODIUM 100 MG CAPSULE (FP) PO SCH ×3 (13:10→22:49)
[2023-04-06] MEDS ORDERED: INSULIN (NOVOLOG) ASPART 100 UNITS/ML 10ML VIAL ONE (16:47)
[2023-04-06] MEDS: ACETAMINOPHEN 325 MG TABLET (FP) PO PRN (16:49)
[2023-04-06] MEDS: MAG HYDROX/AL HYDROX/SIMETH 30 ML UNIT-DOSE CUP PO PRN (20:41)
[2023-04-06] MEDS: ATORVASTATIN CA 10 MG TABLET (FP) PO SCH (22:16)
[2023-04-06] MEDS: QUEtiapine FUMARATE 400 MG TABLET PO SCH (22:16)
[2023-04-06] MEDS: THIAMINE HCL 100 MG TABLET (FP) PO SCH (22:18)
[2023-04-07] MEDS: chlordiazePOXIDE HCL 25 MG CAPSULE PO SCH ×3 (06:12→17:31)
[2023-04-07] MEDS ORDERED: INSULIN (NOVOLOG) ASPART 100 UNITS/ML 10ML VIAL ONE ×4 (08:15→22:33)
[2023-04-07] MEDS: glipiZIDE 5 MG TABLET (FP) PO SCH ×2 (08:16→17:31)
[2023-04-07] MEDS: metFORMIN HCL 500 MG TABLET (FP) PO SCH ×2 (08:16→17:30)
[2023-04-07] MEDS: INSULIN SLIDING SCALE (NOVOLOG) 1 VIAL SQ SCH ×3 (08:17→17:30)
[2023-04-07] MEDS: PRENATAL VITAMINS W/ FOLIC ACID TABLET (FP) PO SCH (10:33)
[2023-04-07] MEDS: BUDESONIDE/FORMETEROL FUMARATE 80/4.5 mcg INHALER IH SCH ×2 (10:34→22:31)
[2023-04-07] MEDS: POLYETHYLENE GLYCOL (HEALTHYLAX) 3350 17 GM PACKET PO SCH (10:34)
[2023-04-07] MEDS: TAMSULOSIN HCL 0.4 MG CAP PO SCH (10:35)
[2023-04-07] MEDS: LACTULOSE 20 GM/30 ML UDC (FOR ORAL USE ONLY) PO SCH ×2 (10:35→22:30)
[2023-04-07] MEDS: LOSARTAN POTASSIUM 50 MG TABLET PO SCH (10:35)
[2023-04-07] MEDS: SENNOSIDES/DOCUSATE COMBO (SENNA PLUS) TABLET (UD) PO SCH (10:35)
[2023-04-07] MEDS: SERTRALINE HCL 50 MG TABLET (FP) PO SCH (10:35)
[2023-04-07] MEDS: DOCUSATE SODIUM 100 MG CAPSULE (FP) PO SCH ×2 (10:36→22:30)
[2023-04-07] MEDS: MAG HYDROX/AL HYDROX/SIMETH 30 ML UNIT-DOSE CUP PO PRN (18:35)
[2023-04-07] MEDS: ATORVASTATIN CA 10 MG TABLET (FP) PO SCH (22:30)
[2023-04-07] MEDS: QUEtiapine FUMARATE 400 MG TABLET PO SCH (22:30)
[2023-04-07] MEDS: THIAMINE HCL 100 MG TABLET (FP) PO SCH (22:31)
[2023-04-08] MEDS ORDERED: chlordiazePOXIDE HCL 10 MG CAPSULE PO PRN
[2023-04-08] MEDS: chlordiazePOXIDE HCL 25 MG CAPSULE PO SCH (00:15)
[2023-04-08] MEDS: INSULIN SLIDING SCALE (NOVOLOG) 1 VIAL SQ SCH ×5 (00:15→22:02)
[2023-04-08] MEDS: ACETAMINOPHEN 325 MG TABLET (FP) PO PRN (04:19)
[2023-04-08] MEDS: chlordiazePOXIDE HCL 10 MG CAPSULE PO SCH ×4 (06:16→22:00)
[2023-04-08] MEDS: metFORMIN HCL 500 MG TABLET (FP) PO SCH ×2 (06:17→17:14)
[2023-04-08] MEDS: glipiZIDE 5 MG TABLET (FP) PO SCH ×2 (06:17→17:14)
[2023-04-08] MEDS: TAMSULOSIN HCL 0.4 MG CAP PO SCH (08:57)
[2023-04-08] MEDS: LACTULOSE 20 GM/30 ML UDC (FOR ORAL USE ONLY) PO SCH ×2 (10:19→21:58)
[2023-04-08] MEDS: LOSARTAN POTASSIUM 50 MG TABLET PO SCH (10:20)
[2023-04-08] MEDS: SENNOSIDES/DOCUSATE COMBO (SENNA PLUS) TABLET (UD) PO SCH (10:20)
[2023-04-08] MEDS: DOCUSATE SODIUM 100 MG CAPSULE (FP) PO SCH ×2 (10:20→21:59)
[2023-04-08] MEDS: POLYETHYLENE GLYCOL (HEALTHYLAX) 3350 17 GM PACKET PO SCH (10:20)
[2023-04-08] MEDS: SERTRALINE HCL 50 MG TABLET (FP) PO SCH (10:21)
[2023-04-08] MEDS: BUDESONIDE/FORMETEROL FUMARATE 80/4.5 mcg INHALER IH SCH ×2 (10:21→21:59)
[2023-04-08] MEDS: PRENATAL VITAMINS W/ FOLIC ACID TABLET (FP) PO SCH (10:21)
[2023-04-08] MEDS: QUEtiapine FUMARATE 400 MG TABLET PO SCH (21:59)
[2023-04-08] MEDS: THIAMINE HCL 100 MG TABLET (FP) PO SCH (21:59)
[2023-04-08] MEDS: SENNOSIDES 8.6MG TABLET (FP) PO SCH (21:59)
[2023-04-08] MEDS: ATORVASTATIN CA 10 MG TABLET (FP) PO SCH (21:59)
[2023-04-08] MEDS: MAG HYDROX/AL HYDROX/SIMETH 30 ML UNIT-DOSE CUP PO PRN (22:01)
[2023-04-09] MEDS ORDERED: chlordiazePOXIDE HCL 10 MG CAPSULE PO SCH (05:00)
[2023-04-09] MEDS: DOCUSATE SODIUM 100 MG CAPSULE (FP) PO SCH ×3 (05:44→22:16)
[2023-04-09] MEDS: metFORMIN HCL 500 MG TABLET (FP) PO SCH ×2 (06:20→17:21)
[2023-04-09] MEDS: INSULIN SLIDING SCALE (NOVOLOG) 1 VIAL SQ SCH ×4 (06:22→22:17)
[2023-04-09] MEDS ORDERED: INSULIN (NOVOLOG MIX 70/30) 100 UNITS/ML MDV SQ ONE (06:26)
[2023-04-09] MEDS: glipiZIDE 5 MG TABLET (FP) PO SCH ×2 (06:30→17:22)
[2023-04-09] MEDS: TAMSULOSIN HCL 0.4 MG CAP PO SCH (07:49)
[2023-04-09] MEDS: BUDESONIDE/FORMETEROL FUMARATE 80/4.5 mcg INHALER IH SCH ×2 (10:34→22:19)
[2023-04-09] MEDS: LACTULOSE 20 GM/30 ML UDC (FOR ORAL USE ONLY) PO SCH ×2 (10:34→22:16)
[2023-04-09] MEDS: LOSARTAN POTASSIUM 50 MG TABLET PO SCH (10:35)
[2023-04-09] MEDS: SERTRALINE HCL 50 MG TABLET (FP) PO SCH (10:35)
[2023-04-09] MEDS: PRENATAL VITAMINS W/ FOLIC ACID TABLET (FP) PO SCH (10:35)
[2023-04-09] MEDS: SENNOSIDES/DOCUSATE COMBO (SENNA PLUS) TABLET (UD) PO SCH (10:35)
[2023-04-09] MEDS: POLYETHYLENE GLYCOL (HEALTHYLAX) 3350 17 GM PACKET PO SCH (10:37)
[2023-04-09] MEDS ORDERED: INSULIN (NOVOLOG) ASPART 100 UNITS/ML 10ML VIAL ONE ×2 (11:51→17:00)
[2023-04-09] MEDS ORDERED: LORazepam 0.5 MG TABLET PO ONE (18:00)
[2023-04-09] MEDS: QUEtiapine FUMARATE 400 MG TABLET PO SCH (22:15)
[2023-04-09] MEDS: THIAMINE HCL 100 MG TABLET (FP) PO SCH (22:16)
[2023-04-09] MEDS: SENNOSIDES 8.6MG TABLET (FP) PO SCH (22:16)
[2023-04-09] MEDS: ATORVASTATIN CA 10 MG TABLET (FP) PO SCH (22:16)
[2023-04-10] MEDS ORDERED: chlordiazePOXIDE HCL 10 MG CAPSULE PO ONE (05:00)
[2023-04-10] MEDS: DOCUSATE SODIUM 100 MG CAPSULE (FP) PO SCH ×2 (05:20→13:11)
[2023-04-10] MEDS ORDERED: LORazepam 0.5 MG TABLET PO ONE (06:00)
[2023-04-10] MEDS: metFORMIN HCL 500 MG TABLET (FP) PO SCH ×2 (06:14→17:01)
[2023-04-10] MEDS: glipiZIDE 5 MG TABLET (FP) PO SCH ×2 (06:14→17:01)
[2023-04-10] MEDS: INSULIN SLIDING SCALE (NOVOLOG) 1 VIAL SQ SCH ×3 (06:16→17:02)
[2023-04-10] MEDS ORDERED: INSULIN (NOVOLOG MIX 70/30) 100 UNITS/ML MDV SQ ONE (06:18)
[2023-04-10] MEDS: TAMSULOSIN HCL 0.4 MG CAP PO SCH (07:43)
[2023-04-10] MEDS: POLYETHYLENE GLYCOL (HEALTHYLAX) 3350 17 GM PACKET PO SCH (09:57)
[2023-04-10] MEDS: LACTULOSE 20 GM/30 ML UDC (FOR ORAL USE ONLY) PO SCH (09:58)
[2023-04-10] MEDS: PRENATAL VITAMINS W/ FOLIC ACID TABLET (FP) PO SCH (09:59)
[2023-04-10] MEDS: LOSARTAN POTASSIUM 50 MG TABLET PO SCH (09:59)
[2023-04-10] MEDS: SERTRALINE HCL 50 MG TABLET (FP) PO SCH (09:59)
[2023-04-10] MEDS: SENNOSIDES/DOCUSATE COMBO (SENNA PLUS) TABLET (UD) PO SCH (10:00)
[2023-04-10] MEDS: BUDESONIDE/FORMETEROL FUMARATE 80/4.5 mcg INHALER IH SCH (10:01)
[2023-04-10] MEDS ORDERED: INSULIN (NOVOLOG) ASPART 100 UNITS/ML 10ML VIAL ONE ×2 (11:03→16:49)
[2023-04-10 16:54] VITALS: BP 120/67; PULSE 62; RESP 17; TEMP 97.3
== END 2023-04-10 18:16 | disposition other institution (70) | DRG 897 ==
LOC: YASAS 09:09 → Y6N 11:09
PROVIDERS: ADMIT Allergy & Immunology; ATTEND Surgery
PROC: HZ2ZZZZ Detoxification Services for Substance Abuse Treatment (ICD-10-PCS; principal; 2023-04-05)
DX: F10.230 Alcohol dependence with withdrawal, uncomplicated (principal); F14.20 Cocaine dependence, uncomplicated; F19.280 Other psychoactive substance dependence with psychoactive substance-induced anxiety disorder; F19.282 Other psychoactive substance dependence with psychoactive substance-induced sleep disorder; F31.9 Bipolar disorder, unspecified; I10 Essential (primary) hypertension; E78.1 Pure hyperglyceridemia; E11.9 Type 2 diabetes mellitus without complications; Z79.84 Long term (current) use of oral hypoglycemic drugs; K59.09 Other constipation; N40.0 Benign prostatic hyperplasia without lower urinary tract symptoms; R79.89 Other specified abnormal findings of blood chemistry; E66.9 Obesity, unspecified; Z68.32 Body mass index [BMI] 32.0-32.9, adult; Z88.0 Allergy status to penicillin
CPT/HCPCS: 36415; 80053; 82140; 82962; 83036; 85027; 86780; 87811; C9803-CS; U0003; U0005

== ENCOUNTER 2023-04-08 06:08 | Emergency (ER) | payer OTHER ==
[2023-04-08 06:14] VITALS: TEMP 97.6; BMI 31.3
[2023-04-08 07:59] LABS: BASO % 0.7 % (0-2.0); EOS % 7.2 % (0-4.5); HEMOGLOBIN 13.1 GM/dL (11.7-16.9); LYMPH % 40.2 % (8-40); MCH 30.4 pg (25.7-33.7); MCHC 34.4 g/dl (32.0-35.9); MEAN CELL VOLUME 88.6 fl (80-96); MEAN PLT VOLUME 8.7 fl (7.5-11.1); NEUT % 43.9 % (42.8-82.8); PLATELET COUNT 227 10^3/uL (134-434); RBC 4.29 M/mm3 (4.00-5.60); RDW 13.3 % (11.9-15.9); WHITE BLOOD COUNT 6.9 K/mm3 (4.0-10.0)
[2023-04-08 08:03] LABS: INR 1.03 (0.83-1.09)
[2023-04-08 08:06] LABS: ACTIVATED PTT 31.5 SECONDS (25.2-36.5)
[2023-04-08 08:18] LABS: POTASSIUM 4.3 mmol/L (3.5-5.1)
[2023-04-08 08:20] LABS: CALCIUM 9.3 mg/dL (8.5-10.1)
[2023-04-08 08:21] LABS: ALBUMIN 3.5 g/dl (3.4-5.0); BLOOD UREA NITROGEN 8.2 mg/dL (7-18); MAGNESIUM 1.9 mg/dL (1.8-2.4)
[2023-04-08 08:23] LABS: CREATININE 0.8 mg/dL (0.55-1.3)
[2023-04-08 08:25] LABS: BILIRUBIN,TOTAL 0.4 mg/dL (0.2-1); TOT PROT 6.8 g/dl (6.4-8.2)
[2023-04-08] MEDS ORDERED: ACETAMINOPHEN INJECTION 100 ML IVPB ONE (08:39)
[2023-04-08] MEDS ORDERED: ACETAMINOPHEN 1000 MG/100 ML BAG IVPB ONE (08:41)
[2023-04-08 09:13] LABS: URINE APPEARANCE CLEAR; URINE BILIRUBIN NEGATIVE (NEGATIVE); URINE COLOR YELLOW; URINE GLUCOSE (UA) 3+ (NEGATIVE); URINE KETONE NEGATIVE (NEGATIVE); URINE LEUK ESTERASE NEGATIVE (NEGATIVE); URINE NITRITE NEGATIVE (NEGATIVE); URINE PROTEIN NEGATIVE (NEGATIVE); URINE UROBILINOGEN 0.2 mg/dL (0.2-1.0)
[2023-04-08] MEDS ORDERED: MAGNESIUM CITRATE 300 ML BOTTLE PO ONE (11:04)
[2023-04-08 13:14] VITALS: BP 112/71; PULSE 61; RESP 18
== END 2023-04-08 13:23 | disposition home or self-care (01) ==
LOC: JER 06:08
PROC: 3E033NZ Introduction of Analgesics, Hypnotics, Sedatives into Peripheral Vein, Percutaneous Approach (ICD-10-PCS; principal; 2023-04-08)
DX: K59.00 Constipation, unspecified (principal)
CPT/HCPCS: 36415; 71045-TC-FY; 74177-TC; 80053; 81003; 83605; 83690; 83735; 85025; 85610; 85730; 86850; 86900; 86901; 87086; 96374; 99285-25; Q9967

== ENCOUNTER 2023-04-10 18:33 | Inpatient (IN) | payer OTHER ==
[~2023-04-10 18:33] MED LIST: ACETAMINOPHEN 325 MG TABLET (FP) PO PRN; AMMONIUM LACTATE 12% LOTION 225 GM BOTTLE TP PRN; BENZOCAINE/MENTHOL (CHLORASEPTIC ) LOZENGE MM PRN; BENZONATATE 200 MG CAPSULE PO PRN; COLLOIDAL OATMEAL 1 BAR EACH TP PRN; IBUPROFEN 400 MG TABLET (FP) PO PRN; LOPERAMIDE HCL 2 MG CAPSULE PO PRN; MAGNESIUM HYDROX 2400MG/30ML ORAL SUSPENSION 30 ML CUP PO PRN; METHOCARBAMOL 500 MG TABLET PO PRN; NICOTINE POLACRILEX 2 MG GUM BUC PRN; POLYETHYLENE GLYCOL (HEALTHYLAX) 3350 17 GM PACKET PO PRN; guaiFENesin 600 MG TABLET.ER (FP) PO PRN; hydrOXYzine PAMOATE 25 MG CAPSULE (FP) PO PRN
[2023-04-10] MEDS ORDERED: SODIUM PHOSPHATE/NA BIPHOS 133 ML ENEMA RC PRN (19:35)
[2023-04-10] MEDS ORDERED: MAGNESIUM HYDROX 2400MG/30ML ORAL SUSPENSION 30 ML CUP PO PRN (19:35)
[2023-04-10] MEDS: DOCUSATE SODIUM 100 MG CAPSULE (FP) PO SCH ×2 (20:11→22:15)
[2023-04-10] MEDS: LACTULOSE 20 GM/30 ML UDC (FOR ORAL USE ONLY) PO SCH ×3 (20:11→22:16)
[2023-04-10] MEDS: metFORMIN HCL 500 MG TABLET (FP) PO SCH (20:11)
[2023-04-10] MEDS: INSULIN SLIDING SCALE (NOVOLOG) 1 VIAL SQ SCH (20:12)
[2023-04-10] MEDS: glipiZIDE 5 MG TABLET (FP) PO SCH (20:12)
[2023-04-10] MEDS: MAG HYDROX/AL HYDROX/SIMETH 30 ML UNIT-DOSE CUP PO PRN (20:55)
[2023-04-10] MEDS ORDERED: SENNOSIDES 8.6MG TABLET (FP) PO SCH (22:00)
[2023-04-10] MEDS: THIAMINE HCL 100 MG TABLET (FP) PO SCH (22:11)
[2023-04-10] MEDS: ATORVASTATIN CA 10 MG TABLET (FP) PO SCH (22:12)
[2023-04-10] MEDS: QUEtiapine FUMARATE 400 MG TABLET PO SCH (22:12)
[2023-04-10] MEDS: MELATONIN 5 MG TABLETS PO SCH (22:15)
[2023-04-10] MEDS: BUDESONIDE/FORMETEROL FUMARATE 80/4.5 mcg INHALER IH SCH (22:15)
[2023-04-11] MEDS: glipiZIDE 5 MG TABLET (FP) PO SCH ×2 (06:29→16:52)
[2023-04-11] MEDS: metFORMIN HCL 500 MG TABLET (FP) PO SCH ×2 (06:29→16:52)
[2023-04-11] MEDS: DOCUSATE SODIUM 100 MG CAPSULE (FP) PO SCH ×3 (06:29→21:10)
[2023-04-11] MEDS: INSULIN SLIDING SCALE (NOVOLOG) 1 VIAL SQ SCH ×2 (06:30→16:53)
[2023-04-11] MEDS ORDERED: SENNOSIDES/DOCUSATE COMBO (SENNA PLUS) TABLET (UD) PO SCH (10:00)
[2023-04-11] MEDS ORDERED: SODIUM PHOSPHATE/NA BIPHOS 133 ML ENEMA RC PRN (10:09)
[2023-04-11] MEDS: PRENATAL VITAMINS W/ FOLIC ACID TABLET (FP) PO SCH (10:14)
[2023-04-11] MEDS: LACTULOSE 20 GM/30 ML UDC (FOR ORAL USE ONLY) PO SCH ×4 (10:14→21:10)
[2023-04-11] MEDS: BUDESONIDE/FORMETEROL FUMARATE 80/4.5 mcg INHALER IH SCH ×2 (10:17→22:39)
[2023-04-11] MEDS: TAMSULOSIN HCL 0.4 MG CAP PO SCH (10:17)
[2023-04-11] MEDS: LOSARTAN POTASSIUM 50 MG TABLET PO SCH (10:17)
[2023-04-11] MEDS: SERTRALINE HCL 50 MG TABLET (FP) PO SCH (10:17)
[2023-04-11] MEDS ORDERED: BISACODYL 10 MG SUPP.RECT PR PRN (11:26)
[2023-04-11] MEDS ORDERED: INSULIN (NOVOLOG) ASPART 100 UNITS/ML 10ML VIAL ONE (16:48)
[2023-04-11] MEDS: MELATONIN 5 MG TABLETS PO SCH (21:10)
[2023-04-11] MEDS: QUEtiapine FUMARATE 400 MG TABLET PO SCH (21:10)
[2023-04-11] MEDS: THIAMINE HCL 100 MG TABLET (FP) PO SCH (21:10)
[2023-04-11] MEDS: ATORVASTATIN CA 10 MG TABLET (FP) PO SCH (21:10)
[2023-04-12] MEDS: glipiZIDE 5 MG TABLET (FP) PO SCH ×2 (06:29→16:43)
[2023-04-12] MEDS: metFORMIN HCL 500 MG TABLET (FP) PO SCH ×2 (06:29→16:43)
[2023-04-12] MEDS: INSULIN SLIDING SCALE (NOVOLOG) 1 VIAL SQ SCH ×2 (06:30→16:43)
[2023-04-12] MEDS ORDERED: INSULIN (NOVOLOG) ASPART 100 UNITS/ML 10ML VIAL ONE ×3 (06:31→21:26)
[2023-04-12] MEDS: DOCUSATE SODIUM 100 MG CAPSULE (FP) PO SCH ×3 (06:32→21:10)
[2023-04-12] MEDS: SERTRALINE HCL 50 MG TABLET (FP) PO SCH (09:58)
[2023-04-12] MEDS: PRENATAL VITAMINS W/ FOLIC ACID TABLET (FP) PO SCH (09:58)
[2023-04-12] MEDS: LACTULOSE 20 GM/30 ML UDC (FOR ORAL USE ONLY) PO SCH ×4 (09:58→21:10)
[2023-04-12] MEDS: BUDESONIDE/FORMETEROL FUMARATE 80/4.5 mcg INHALER IH SCH ×2 (09:59→21:24)
[2023-04-12] MEDS: TAMSULOSIN HCL 0.4 MG CAP PO SCH (09:59)
[2023-04-12] MEDS: LOSARTAN POTASSIUM 50 MG TABLET PO SCH (09:59)
[2023-04-12] MEDS: hydrOXYzine PAMOATE 50 MG CAPSULE (FP) PO PRN (10:02)
[2023-04-12] MEDS: THIAMINE HCL 100 MG TABLET (FP) PO SCH (21:09)
[2023-04-12] MEDS: MELATONIN 5 MG TABLETS PO SCH (21:09)
[2023-04-12] MEDS: ATORVASTATIN CA 10 MG TABLET (FP) PO SCH (21:10)
[2023-04-12] MEDS: QUEtiapine FUMARATE 400 MG TABLET PO SCH (21:10)
[2023-04-12] MEDS: MAG HYDROX/AL HYDROX/SIMETH 30 ML UNIT-DOSE CUP PO PRN (21:11)
[2023-04-13] MEDS: metFORMIN HCL 500 MG TABLET (FP) PO SCH ×2 (06:19→16:35)
[2023-04-13] MEDS: DOCUSATE SODIUM 100 MG CAPSULE (FP) PO SCH ×3 (06:19→21:06)
[2023-04-13] MEDS: glipiZIDE 5 MG TABLET (FP) PO SCH ×2 (06:19→16:35)
[2023-04-13] MEDS: INSULIN SLIDING SCALE (NOVOLOG) 1 VIAL SQ SCH ×2 (06:20→16:35)
[2023-04-13] MEDS: LOSARTAN POTASSIUM 50 MG TABLET PO SCH (09:39)
[2023-04-13] MEDS: SERTRALINE HCL 50 MG TABLET (FP) PO SCH (09:39)
[2023-04-13] MEDS: LACTULOSE 20 GM/30 ML UDC (FOR ORAL USE ONLY) PO SCH ×4 (09:39→21:06)
[2023-04-13] MEDS: TAMSULOSIN HCL 0.4 MG CAP PO SCH (09:39)
[2023-04-13] MEDS: PRENATAL VITAMINS W/ FOLIC ACID TABLET (FP) PO SCH (09:39)
[2023-04-13] MEDS: BUDESONIDE/FORMETEROL FUMARATE 80/4.5 mcg INHALER IH SCH ×2 (09:40→21:06)
[2023-04-13] MEDS: hydrOXYzine PAMOATE 50 MG CAPSULE (FP) PO PRN (09:41)
[2023-04-13] MEDS: GABAPENTIN 100 MG CAPSULE PO SCH ×2 (15:13→21:06)
[2023-04-13] MEDS ORDERED: INSULIN (NOVOLOG) ASPART 100 UNITS/ML 10ML VIAL ONE ×3 (16:24→19:44)
[2023-04-13] MEDS: THIAMINE HCL 100 MG TABLET (FP) PO SCH (21:05)
[2023-04-13] MEDS: MELATONIN 5 MG TABLETS PO SCH (21:05)
[2023-04-13] MEDS: QUEtiapine FUMARATE 400 MG TABLET PO SCH (21:06)
[2023-04-13] MEDS: ATORVASTATIN CA 10 MG TABLET (FP) PO SCH (21:06)
[2023-04-14] MEDS: DOCUSATE SODIUM 100 MG CAPSULE (FP) PO SCH ×3 (06:21→21:20)
[2023-04-14] MEDS: metFORMIN HCL 500 MG TABLET (FP) PO SCH ×2 (06:21→16:36)
[2023-04-14] MEDS: glipiZIDE 5 MG TABLET (FP) PO SCH ×2 (06:21→16:36)
[2023-04-14] MEDS: GABAPENTIN 100 MG CAPSULE PO SCH ×2 (06:21→13:25)
[2023-04-14] MEDS ORDERED: INSULIN (NOVOLOG) ASPART 100 UNITS/ML 10ML VIAL ONE ×2 (07:48→16:39)
[2023-04-14] MEDS: INSULIN SLIDING SCALE (NOVOLOG) 1 VIAL SQ SCH ×2 (07:50→16:37)
[2023-04-14] MEDS: LACTULOSE 20 GM/30 ML UDC (FOR ORAL USE ONLY) PO SCH ×4 (09:13→21:19)
[2023-04-14] MEDS: BUDESONIDE/FORMETEROL FUMARATE 80/4.5 mcg INHALER IH SCH ×2 (09:13→21:21)
[2023-04-14] MEDS: SERTRALINE HCL 50 MG TABLET (FP) PO SCH (09:13)
[2023-04-14] MEDS: PRENATAL VITAMINS W/ FOLIC ACID TABLET (FP) PO SCH (09:13)
[2023-04-14] MEDS: LOSARTAN POTASSIUM 50 MG TABLET PO SCH (09:13)
[2023-04-14] MEDS: TAMSULOSIN HCL 0.4 MG CAP PO SCH (09:13)
[2023-04-14] MEDS: THIAMINE HCL 100 MG TABLET (FP) PO SCH (21:21)
[2023-04-14] MEDS: ATORVASTATIN CA 10 MG TABLET (FP) PO SCH (21:21)
[2023-04-14] MEDS: MELATONIN 5 MG TABLETS PO SCH (21:21)
[2023-04-14] MEDS: QUEtiapine FUMARATE 400 MG TABLET PO SCH (21:21)
[2023-04-15] MEDS: metFORMIN HCL 500 MG TABLET (FP) PO SCH ×2 (06:21→16:30)
[2023-04-15] MEDS: GABAPENTIN 100 MG CAPSULE PO SCH ×2 (06:21→13:40)
[2023-04-15] MEDS: glipiZIDE 5 MG TABLET (FP) PO SCH ×2 (06:21→16:30)
[2023-04-15] MEDS: DOCUSATE SODIUM 100 MG CAPSULE (FP) PO SCH ×3 (06:22→21:20)
[2023-04-15] MEDS: INSULIN SLIDING SCALE (NOVOLOG) 1 VIAL SQ SCH ×2 (06:23→16:57)
[2023-04-15] MEDS: LACTULOSE 20 GM/30 ML UDC (FOR ORAL USE ONLY) PO SCH ×4 (09:33→21:20)
[2023-04-15] MEDS: PRENATAL VITAMINS W/ FOLIC ACID TABLET (FP) PO SCH (09:33)
[2023-04-15] MEDS: SERTRALINE HCL 50 MG TABLET (FP) PO SCH (09:34)
[2023-04-15] MEDS: TAMSULOSIN HCL 0.4 MG CAP PO SCH (09:34)
[2023-04-15] MEDS: LOSARTAN POTASSIUM 50 MG TABLET PO SCH (09:34)
[2023-04-15] MEDS: BUDESONIDE/FORMETEROL FUMARATE 80/4.5 mcg INHALER IH SCH ×2 (09:34→21:20)
[2023-04-15] MEDS: QUEtiapine FUMARATE 400 MG TABLET PO SCH (21:19)
[2023-04-15] MEDS: ATORVASTATIN CA 10 MG TABLET (FP) PO SCH (21:19)
[2023-04-15] MEDS: MELATONIN 5 MG TABLETS PO SCH (21:20)
[2023-04-15] MEDS: THIAMINE HCL 100 MG TABLET (FP) PO SCH (21:20)
[2023-04-16] MEDS: DOCUSATE SODIUM 100 MG CAPSULE (FP) PO SCH ×3 (06:07→21:04)
[2023-04-16] MEDS: INSULIN SLIDING SCALE (NOVOLOG) 1 VIAL SQ SCH ×2 (06:08→16:55)
[2023-04-16] MEDS ORDERED: INSULIN (NOVOLOG) ASPART 100 UNITS/ML 10ML VIAL ONE ×2 (06:09→16:49)
[2023-04-16] MEDS: GABAPENTIN 100 MG CAPSULE PO SCH ×2 (06:10→13:28)
[2023-04-16] MEDS: metFORMIN HCL 500 MG TABLET (FP) PO SCH ×2 (06:10→16:53)
[2023-04-16] MEDS: glipiZIDE 5 MG TABLET (FP) PO SCH ×2 (06:10→16:53)
[2023-04-16] MEDS: LACTULOSE 20 GM/30 ML UDC (FOR ORAL USE ONLY) PO SCH ×4 (09:48→21:04)
[2023-04-16] MEDS: PRENATAL VITAMINS W/ FOLIC ACID TABLET (FP) PO SCH (09:49)
[2023-04-16] MEDS: LOSARTAN POTASSIUM 50 MG TABLET PO SCH (09:49)
[2023-04-16] MEDS: TAMSULOSIN HCL 0.4 MG CAP PO SCH (09:49)
[2023-04-16] MEDS: BUDESONIDE/FORMETEROL FUMARATE 80/4.5 mcg INHALER IH SCH ×2 (09:49→21:04)
[2023-04-16] MEDS: SERTRALINE HCL 50 MG TABLET (FP) PO SCH (09:49)
[2023-04-16] MEDS: hydrOXYzine PAMOATE 50 MG CAPSULE (FP) PO PRN (13:27)
[2023-04-16] MEDS: THIAMINE HCL 100 MG TABLET (FP) PO SCH (21:03)
[2023-04-16] MEDS: MELATONIN 5 MG TABLETS PO SCH (21:03)
[2023-04-16] MEDS: ATORVASTATIN CA 10 MG TABLET (FP) PO SCH (21:04)
[2023-04-16] MEDS: QUEtiapine FUMARATE 400 MG TABLET PO SCH (21:04)
[2023-04-17] MEDS: GABAPENTIN 100 MG CAPSULE PO SCH ×2 (06:19→13:00)
[2023-04-17] MEDS: DOCUSATE SODIUM 100 MG CAPSULE (FP) PO SCH ×3 (06:19→23:00)
[2023-04-17] MEDS: glipiZIDE 5 MG TABLET (FP) PO SCH ×2 (06:19→16:57)
[2023-04-17] MEDS: metFORMIN HCL 500 MG TABLET (FP) PO SCH ×2 (06:19→16:57)
[2023-04-17] MEDS ORDERED: INSULIN (NOVOLOG) ASPART 100 UNITS/ML 10ML VIAL ONE ×2 (06:20→16:56)
[2023-04-17] MEDS: INSULIN SLIDING SCALE (NOVOLOG) 1 VIAL SQ SCH ×2 (06:20→16:58)
[2023-04-17] MEDS: hydrOXYzine PAMOATE 50 MG CAPSULE (FP) PO PRN (06:20)
[2023-04-17] MEDS: LACTULOSE 20 GM/30 ML UDC (FOR ORAL USE ONLY) PO SCH ×4 (09:30→23:00)
[2023-04-17] MEDS: LOSARTAN POTASSIUM 50 MG TABLET PO SCH (09:31)
[2023-04-17] MEDS: PRENATAL VITAMINS W/ FOLIC ACID TABLET (FP) PO SCH (09:31)
[2023-04-17] MEDS: TAMSULOSIN HCL 0.4 MG CAP PO SCH (09:31)
[2023-04-17] MEDS: ALBUTEROL SO4 HFA INHALER IH PRN (09:32)
[2023-04-17] MEDS: BUDESONIDE/FORMETEROL FUMARATE 80/4.5 mcg INHALER IH SCH ×2 (09:32→23:01)
[2023-04-17] MEDS: SERTRALINE HCL 50 MG TABLET (FP) PO SCH (09:32)
[2023-04-17] MEDS: ATORVASTATIN CA 10 MG TABLET (FP) PO SCH (23:00)
[2023-04-17] MEDS: THIAMINE HCL 100 MG TABLET (FP) PO SCH (23:01)
[2023-04-17] MEDS: QUEtiapine FUMARATE 400 MG TABLET PO SCH (23:01)
[2023-04-17] MEDS: MELATONIN 5 MG TABLETS PO SCH (23:01)
[2023-04-18] MEDS: GABAPENTIN 100 MG CAPSULE PO SCH ×2 (06:24→13:35)
[2023-04-18] MEDS: metFORMIN HCL 500 MG TABLET (FP) PO SCH ×2 (06:24→16:39)
[2023-04-18] MEDS: glipiZIDE 5 MG TABLET (FP) PO SCH ×2 (06:24→16:39)
[2023-04-18] MEDS: DOCUSATE SODIUM 100 MG CAPSULE (FP) PO SCH ×3 (06:24→21:05)
[2023-04-18] MEDS: INSULIN SLIDING SCALE (NOVOLOG) 1 VIAL SQ SCH ×2 (06:25→16:40)
[2023-04-18] MEDS: TAMSULOSIN HCL 0.4 MG CAP PO SCH (09:48)
[2023-04-18] MEDS: SERTRALINE HCL 50 MG TABLET (FP) PO SCH (09:48)
[2023-04-18] MEDS: PRENATAL VITAMINS W/ FOLIC ACID TABLET (FP) PO SCH (09:48)
[2023-04-18] MEDS: BUDESONIDE/FORMETEROL FUMARATE 80/4.5 mcg INHALER IH SCH ×2 (09:49→21:05)
[2023-04-18] MEDS: LACTULOSE 20 GM/30 ML UDC (FOR ORAL USE ONLY) PO SCH ×4 (09:49→21:05)
[2023-04-18] MEDS: hydrOXYzine PAMOATE 50 MG CAPSULE (FP) PO PRN (09:50)
[2023-04-18] MEDS: LOSARTAN POTASSIUM 50 MG TABLET PO SCH (10:14)
[2023-04-18] MEDS: THIAMINE HCL 100 MG TABLET (FP) PO SCH (21:05)
[2023-04-18] MEDS: ATORVASTATIN CA 10 MG TABLET (FP) PO SCH (21:05)
[2023-04-18] MEDS: MELATONIN 5 MG TABLETS PO SCH (21:05)
[2023-04-18] MEDS: QUEtiapine FUMARATE 400 MG TABLET PO SCH (21:06)
[2023-04-19] MEDS: GABAPENTIN 100 MG CAPSULE PO SCH ×2 (06:24→13:40)
[2023-04-19] MEDS: DOCUSATE SODIUM 100 MG CAPSULE (FP) PO SCH ×3 (06:24→21:23)
[2023-04-19] MEDS: metFORMIN HCL 500 MG TABLET (FP) PO SCH ×2 (06:24→16:47)
[2023-04-19] MEDS: glipiZIDE 5 MG TABLET (FP) PO SCH ×2 (06:24→16:47)
[2023-04-19] MEDS: hydrOXYzine PAMOATE 50 MG CAPSULE (FP) PO PRN ×2 (06:25→21:23)
[2023-04-19] MEDS: INSULIN SLIDING SCALE (NOVOLOG) 1 VIAL SQ SCH ×2 (06:26→16:49)
[2023-04-19] MEDS: LACTULOSE 20 GM/30 ML UDC (FOR ORAL USE ONLY) PO SCH ×4 (09:24→21:24)
[2023-04-19] MEDS: BUDESONIDE/FORMETEROL FUMARATE 80/4.5 mcg INHALER IH SCH ×2 (09:25→21:24)
[2023-04-19] MEDS: SERTRALINE HCL 50 MG TABLET (FP) PO SCH (09:25)
[2023-04-19] MEDS: TAMSULOSIN HCL 0.4 MG CAP PO SCH (09:25)
[2023-04-19] MEDS: PRENATAL VITAMINS W/ FOLIC ACID TABLET (FP) PO SCH (09:25)
[2023-04-19] MEDS: LOSARTAN POTASSIUM 50 MG TABLET PO SCH (09:26)
[2023-04-19] MEDS: MAG HYDROX/AL HYDROX/SIMETH 30 ML UNIT-DOSE CUP PO PRN (11:55)
[2023-04-19] MEDS ORDERED: INSULIN (NOVOLOG) ASPART 100 UNITS/ML 10ML VIAL ONE (16:49)
[2023-04-19] MEDS: IBUPROFEN 600 MG TABLET (FP) PO PRN (18:27)
[2023-04-19] MEDS: ATORVASTATIN CA 10 MG TABLET (FP) PO SCH (21:23)
[2023-04-19] MEDS: MELATONIN 5 MG TABLETS PO SCH (21:23)
[2023-04-19] MEDS: THIAMINE HCL 100 MG TABLET (FP) PO SCH (21:23)
[2023-04-19] MEDS: QUEtiapine FUMARATE 400 MG TABLET PO SCH (21:24)
[2023-04-20] MEDS: metFORMIN HCL 500 MG TABLET (FP) PO SCH ×2 (06:30→16:44)
[2023-04-20] MEDS: DOCUSATE SODIUM 100 MG CAPSULE (FP) PO SCH ×3 (06:30→21:39)
[2023-04-20] MEDS: glipiZIDE 5 MG TABLET (FP) PO SCH ×2 (06:30→16:44)
[2023-04-20] MEDS: GABAPENTIN 100 MG CAPSULE PO SCH ×2 (06:30→13:42)
[2023-04-20] MEDS: hydrOXYzine PAMOATE 50 MG CAPSULE (FP) PO PRN ×2 (06:31→21:39)
[2023-04-20] MEDS: INSULIN SLIDING SCALE (NOVOLOG) 1 VIAL SQ SCH ×2 (06:46→16:44)
[2023-04-20] MEDS: SERTRALINE HCL 50 MG TABLET (FP) PO SCH (09:34)
[2023-04-20] MEDS: PRENATAL VITAMINS W/ FOLIC ACID TABLET (FP) PO SCH (09:34)
[2023-04-20] MEDS: LACTULOSE 20 GM/30 ML UDC (FOR ORAL USE ONLY) PO SCH ×4 (09:34→21:40)
[2023-04-20] MEDS: BUDESONIDE/FORMETEROL FUMARATE 80/4.5 mcg INHALER IH SCH ×2 (09:34→21:40)
[2023-04-20] MEDS: LOSARTAN POTASSIUM 50 MG TABLET PO SCH (09:34)
[2023-04-20] MEDS: TAMSULOSIN HCL 0.4 MG CAP PO SCH (09:34)
[2023-04-20] MEDS: MELATONIN 5 MG TABLETS PO SCH (21:39)
[2023-04-20] MEDS: QUEtiapine FUMARATE 400 MG TABLET PO SCH (21:40)
[2023-04-20] MEDS: ATORVASTATIN CA 10 MG TABLET (FP) PO SCH (21:40)
[2023-04-20] MEDS: THIAMINE HCL 100 MG TABLET (FP) PO SCH (21:40)
[2023-04-20] MEDS: MAG HYDROX/AL HYDROX/SIMETH 30 ML UNIT-DOSE CUP PO PRN (21:41)
[2023-04-21] MEDS: metFORMIN HCL 500 MG TABLET (FP) PO SCH ×2 (06:17→16:39)
[2023-04-21] MEDS: DOCUSATE SODIUM 100 MG CAPSULE (FP) PO SCH ×3 (06:17→21:23)
[2023-04-21] MEDS: GABAPENTIN 100 MG CAPSULE PO SCH ×2 (06:17→13:41)
[2023-04-21] MEDS: hydrOXYzine PAMOATE 50 MG CAPSULE (FP) PO PRN ×2 (06:21→21:24)
[2023-04-21] MEDS: glipiZIDE 5 MG TABLET (FP) PO SCH ×2 (06:45→16:39)
[2023-04-21] MEDS: INSULIN SLIDING SCALE (NOVOLOG) 1 VIAL SQ SCH ×2 (06:46→16:40)
[2023-04-21] MEDS: TAMSULOSIN HCL 0.4 MG CAP PO SCH (09:47)
[2023-04-21] MEDS: LACTULOSE 20 GM/30 ML UDC (FOR ORAL USE ONLY) PO SCH ×4 (09:47→21:24)
[2023-04-21] MEDS: SERTRALINE HCL 50 MG TABLET (FP) PO SCH (09:47)
[2023-04-21] MEDS: PRENATAL VITAMINS W/ FOLIC ACID TABLET (FP) PO SCH (09:47)
[2023-04-21] MEDS: LOSARTAN POTASSIUM 50 MG TABLET PO SCH (09:47)
[2023-04-21] MEDS: BUDESONIDE/FORMETEROL FUMARATE 80/4.5 mcg INHALER IH SCH ×2 (09:48→21:30)
[2023-04-21] MEDS: IBUPROFEN 600 MG TABLET (FP) PO PRN (11:37)
[2023-04-21] MEDS ORDERED: INSULIN (NOVOLOG) ASPART 100 UNITS/ML 10ML VIAL ONE (16:35)
[2023-04-21] MEDS: MELATONIN 5 MG TABLETS PO SCH (21:22)
[2023-04-21] MEDS: ATORVASTATIN CA 10 MG TABLET (FP) PO SCH (21:23)
[2023-04-21] MEDS: THIAMINE HCL 100 MG TABLET (FP) PO SCH (21:23)
[2023-04-21] MEDS: QUEtiapine FUMARATE 400 MG TABLET PO SCH (21:30)
[2023-04-22] MEDS: IBUPROFEN 600 MG TABLET (FP) PO PRN (04:00)
[2023-04-22] MEDS: GABAPENTIN 100 MG CAPSULE PO SCH ×2 (06:44→13:07)
[2023-04-22] MEDS: DOCUSATE SODIUM 100 MG CAPSULE (FP) PO SCH ×3 (06:44→21:36)
[2023-04-22] MEDS: metFORMIN HCL 500 MG TABLET (FP) PO SCH ×2 (06:44→16:46)
[2023-04-22] MEDS: glipiZIDE 5 MG TABLET (FP) PO SCH ×2 (06:44→16:46)
[2023-04-22] MEDS: hydrOXYzine PAMOATE 50 MG CAPSULE (FP) PO PRN ×2 (06:45→21:36)
[2023-04-22] MEDS: INSULIN SLIDING SCALE (NOVOLOG) 1 VIAL SQ SCH ×2 (06:47→16:48)
[2023-04-22] MEDS: TAMSULOSIN HCL 0.4 MG CAP PO SCH (09:46)
[2023-04-22] MEDS: BUDESONIDE/FORMETEROL FUMARATE 80/4.5 mcg INHALER IH SCH ×2 (09:47→21:53)
[2023-04-22] MEDS: PRENATAL VITAMINS W/ FOLIC ACID TABLET (FP) PO SCH (09:47)
[2023-04-22] MEDS: LOSARTAN POTASSIUM 50 MG TABLET PO SCH (09:47)
[2023-04-22] MEDS: SERTRALINE HCL 50 MG TABLET (FP) PO SCH (09:47)
[2023-04-22] MEDS: LACTULOSE 20 GM/30 ML UDC (FOR ORAL USE ONLY) PO SCH ×4 (09:47→21:53)
[2023-04-22] MEDS: THIAMINE HCL 100 MG TABLET (FP) PO SCH (21:35)
[2023-04-22] MEDS: MELATONIN 5 MG TABLETS PO SCH (21:35)
[2023-04-22] MEDS: ATORVASTATIN CA 10 MG TABLET (FP) PO SCH (21:36)
[2023-04-22] MEDS: QUEtiapine FUMARATE 400 MG TABLET PO SCH (21:36)
[2023-04-23] MEDS: DOCUSATE SODIUM 100 MG CAPSULE (FP) PO SCH ×3 (06:31→21:07)
[2023-04-23] MEDS: metFORMIN HCL 500 MG TABLET (FP) PO SCH ×2 (06:31→16:59)
[2023-04-23] MEDS: GABAPENTIN 100 MG CAPSULE PO SCH ×2 (06:32→13:50)
[2023-04-23] MEDS: hydrOXYzine PAMOATE 50 MG CAPSULE (FP) PO PRN ×2 (06:32→21:08)
[2023-04-23] MEDS: glipiZIDE 5 MG TABLET (FP) PO SCH ×2 (06:32→16:59)
[2023-04-23] MEDS: INSULIN SLIDING SCALE (NOVOLOG) 1 VIAL SQ SCH ×2 (06:33→18:09)
[2023-04-23] MEDS: LACTULOSE 20 GM/30 ML UDC (FOR ORAL USE ONLY) PO SCH ×4 (09:41→21:07)
[2023-04-23] MEDS: BUDESONIDE/FORMETEROL FUMARATE 80/4.5 mcg INHALER IH SCH ×2 (09:41→21:09)
[2023-04-23] MEDS: ALBUTEROL SO4 HFA INHALER IH PRN (09:41)
[2023-04-23] MEDS: TAMSULOSIN HCL 0.4 MG CAP PO SCH (09:41)
[2023-04-23] MEDS: LOSARTAN POTASSIUM 50 MG TABLET PO SCH (09:41)
[2023-04-23] MEDS: SERTRALINE HCL 50 MG TABLET (FP) PO SCH (09:42)
[2023-04-23] MEDS: PRENATAL VITAMINS W/ FOLIC ACID TABLET (FP) PO SCH (09:42)
[2023-04-23] MEDS: IBUPROFEN 600 MG TABLET (FP) PO PRN (11:10)
[2023-04-23] MEDS: QUEtiapine FUMARATE 400 MG TABLET PO SCH (21:07)
[2023-04-23] MEDS: MELATONIN 5 MG TABLETS PO SCH (21:08)
[2023-04-23] MEDS: ATORVASTATIN CA 10 MG TABLET (FP) PO SCH (21:08)
[2023-04-23] MEDS: THIAMINE HCL 100 MG TABLET (FP) PO SCH (21:08)
[2023-04-24] MEDS: glipiZIDE 5 MG TABLET (FP) PO SCH (06:20)
[2023-04-24] MEDS: GABAPENTIN 100 MG CAPSULE PO SCH (06:20)
[2023-04-24] MEDS: DOCUSATE SODIUM 100 MG CAPSULE (FP) PO SCH (06:20)
[2023-04-24] MEDS: INSULIN SLIDING SCALE (NOVOLOG) 1 VIAL SQ SCH (06:20)
[2023-04-24] MEDS: metFORMIN HCL 500 MG TABLET (FP) PO SCH (06:20)
[2023-04-24 06:58] VITALS: TEMP 97.9
[2023-04-24 07:03] VITALS: RESP 16
[2023-04-24] MEDS: hydrOXYzine PAMOATE 50 MG CAPSULE (FP) PO PRN (08:43)
[2023-04-24 08:53] VITALS: BP 103/66; PULSE 64
[2023-04-24] MEDS: TAMSULOSIN HCL 0.4 MG CAP PO SCH (09:05)
[2023-04-24] MEDS: SERTRALINE HCL 50 MG TABLET (FP) PO SCH (09:05)
[2023-04-24] MEDS: PRENATAL VITAMINS W/ FOLIC ACID TABLET (FP) PO SCH (09:05)
[2023-04-24] MEDS: BUDESONIDE/FORMETEROL FUMARATE 80/4.5 mcg INHALER IH SCH (09:05)
[2023-04-24] MEDS: LOSARTAN POTASSIUM 50 MG TABLET PO SCH (09:05)
[2023-04-24] MEDS: LACTULOSE 20 GM/30 ML UDC (FOR ORAL USE ONLY) PO SCH (09:05)
== END 2023-04-24 09:10 | disposition home or self-care (01) | DRG 895 ==
LOC: YASAS 18:33 → Y3E 18:35
PROVIDERS: ADMIT Allergy & Immunology; ATTEND Psychiatry & Neurology Pain Medicine
PROC: HZ42ZZZ Group Counseling for Substance Abuse Treatment, Cognitive-Behavioral (ICD-10-PCS; principal; 2023-04-10)
DX: F19.20 Other psychoactive substance dependence, uncomplicated (principal); F14.20 Cocaine dependence, uncomplicated; F10.20 Alcohol dependence, uncomplicated; F31.9 Bipolar disorder, unspecified; F25.9 Schizoaffective disorder, unspecified; I10 Essential (primary) hypertension; J45.20 Mild intermittent asthma, uncomplicated; E78.5 Hyperlipidemia, unspecified; E11.9 Type 2 diabetes mellitus without complications; Z79.84 Long term (current) use of oral hypoglycemic drugs; E66.9 Obesity, unspecified; Z68.32 Body mass index [BMI] 32.0-32.9, adult; R79.89 Other specified abnormal findings of blood chemistry; Z88.0 Allergy status to penicillin
CPT/HCPCS: 82140; 82962

== ENCOUNTER 2023-06-07 09:23 | Inpatient (IN) | payer OTHER ==
[2023-06-07 09:43] VITALS: BMI 31.9
[2023-06-07] MEDS ORDERED: BISMUTH SUBSALICYLATE 262 MG/15 ML BTL PO PRN (10:06)
[2023-06-07] MEDS ORDERED: IBUPROFEN 600 MG TABLET (FP) PO PRN (10:06)
[2023-06-07] MEDS ORDERED: POLYETHYLENE GLYCOL (HEALTHYLAX) 3350 17 GM PACKET PO PRN (10:06)
[2023-06-07] MEDS ORDERED: guaiFENesin 600 MG TABLET.ER (FP) PO PRN (10:06)
[2023-06-07] MEDS ORDERED: ONDANSETRON *ODT* 4 MG TABLET SL PRN (10:06)
[2023-06-07] MEDS ORDERED: DICYCLOMINE HCL 10 MG CAPSULE PO PRN (10:06)
[2023-06-07] MEDS ORDERED: LORazepam 1 MG TABLET PO PRN (10:06)
[2023-06-07] MEDS ORDERED: MAG HYDROX/AL HYDROX/SIMETH 30 ML UNIT-DOSE CUP PO PRN (10:06)
[2023-06-07] MEDS ORDERED: MAGNESIUM HYDROX 2400MG/30ML ORAL SUSPENSION 30 ML CUP PO PRN (10:06)
[2023-06-07] MEDS ORDERED: NALOXONE HCL 0.4 MG/ML VIAL IM PRN (10:06)
[2023-06-07] MEDS ORDERED: ACETAMINOPHEN 325 MG TABLET (FP) PO PRN (10:06)
[2023-06-07] MEDS ORDERED: IBUPROFEN 400 MG TABLET (FP) PO PRN (10:06)
[2023-06-07] MEDS ORDERED: LOPERAMIDE HCL 2 MG CAPSULE PO PRN (10:06)
[2023-06-07] MEDS ORDERED: BENZOCAINE/MENTHOL (CHLORASEPTIC ) LOZENGE MM PRN (10:06)
[2023-06-07] MEDS ORDERED: NALOXONE HCL (KLOXXADO) 8 MG SPRAY NS PRN (10:06)
[2023-06-07] MEDS ORDERED: BENZONATATE 200 MG CAPSULE PO PRN (10:06)
[2023-06-07] MEDS ORDERED: cloNIDine HCL 0.1 MG TABLET PO PRN (10:30)
[2023-06-07] MEDS: LORazepam 2 MG TABLET PO SCH ×3 (10:44→22:17)
[2023-06-07] MEDS: PRENATAL VITAMINS W/ FOLIC ACID TABLET (FP) PO SCH (10:44)
[2023-06-07] MEDS ORDERED: cloNIDine HCL 0.1 MG TABLET ONE (10:47)
[2023-06-07] MEDS ORDERED: PRENATAL VITAMINS W/ FOLIC ACID TABLET (FP) PO ONE (10:48)
[2023-06-07] MEDS ORDERED: LORazepam 2 MG TABLET ONE (10:48)
[2023-06-07] MEDS: SERTRALINE HCL 50 MG TABLET (FP) PO SCH (11:55)
[2023-06-07] MEDS: QUEtiapine FUMARATE 100 MG TABLET (FP) PO SCH (11:55)
[2023-06-07 14:33] LABS: HEMATOCRIT 38.5 % (35.4-49); MCHC 33.9 g/dl (32.0-35.9); MEAN CELL VOLUME 88.5 fl (80-96); MEAN PLT VOLUME 8.6 fl (7.5-11.1); PLATELET COUNT 222 10^3/uL (134-434); RBC 4.35 M/mm3 (4.00-5.60); RDW 13.8 % (11.9-15.9); WHITE BLOOD COUNT 5.8 K/mm3 (4.0-10.0)
[2023-06-07 14:38] LABS: POTASSIUM 4.3 mmol/L (3.5-5.1)
[2023-06-07 14:46] LABS: ALBUMIN 3.6 g/dl (3.4-5.0); CALCIUM 9.9 mg/dL (8.5-10.1)
[2023-06-07 14:48] LABS: BILIRUBIN,TOTAL 0.3 mg/dL (0.2-1); TOT PROT 7.1 g/dl (6.4-8.2)
[2023-06-07 14:57] LABS: BLOOD UREA NITROGEN 14.1 mg/dL (7-18)
[2023-06-07] MEDS ORDERED: ALBUTEROL SO4 HFA INHALER IH ONE (17:43)
[2023-06-07] MEDS: ALBUTEROL SO4 HFA INHALER IH PRN (19:10)
[2023-06-07] MEDS: metFORMIN HCL 500 MG TABLET (FP) PO SCH (19:20)
[2023-06-07] MEDS ORDERED: MELATONIN 5 MG TABLETS PO SCH (22:00)
[2023-06-07] MEDS: INSULIN SLIDING SCALE (NOVOLOG) 1 VIAL SQ SCH (22:14)
[2023-06-07] MEDS ORDERED: INSULIN (NOVOLOG) ASPART 100 UNITS/ML 10ML VIAL ONE (22:16)
[2023-06-07] MEDS: THIAMINE HCL 100 MG TABLET (FP) PO SCH (22:17)
[2023-06-07] MEDS: QUEtiapine FUMARATE 400 MG TABLET PO SCH (22:17)
[2023-06-08] MEDS: LORazepam 2 MG TABLET PO SCH ×4 (05:32→22:01)
[2023-06-08] MEDS: ALBUTEROL SO4 HFA INHALER IH PRN ×2 (05:46→22:16)
[2023-06-08] MEDS: INSULIN SLIDING SCALE (NOVOLOG) 1 VIAL SQ SCH ×4 (06:14→22:03)
[2023-06-08] MEDS: metFORMIN HCL 500 MG TABLET (FP) PO SCH ×2 (06:14→16:57)
[2023-06-08] MEDS: LOSARTAN POTASSIUM 50 MG TABLET PO SCH (10:47)
[2023-06-08] MEDS: QUEtiapine FUMARATE 100 MG TABLET (FP) PO SCH (10:47)
[2023-06-08] MEDS: SERTRALINE HCL 50 MG TABLET (FP) PO SCH (10:47)
[2023-06-08] MEDS: PRENATAL VITAMINS W/ FOLIC ACID TABLET (FP) PO SCH (10:47)
[2023-06-08] MEDS: LACTULOSE 20 GM/30 ML UDC (FOR ORAL USE ONLY) PO SCH ×4 (10:48→22:03)
[2023-06-08] MEDS: TAMSULOSIN HCL 0.4 MG CAP PO SCH (10:49)
[2023-06-08] MEDS: hydrOXYzine PAMOATE 25 MG CAPSULE (FP) PO PRN (10:49)
[2023-06-08] MEDS: BUDESONIDE/FORMETEROL FUMARATE 80/4.5 mcg INHALER IH SCH ×2 (10:49→22:00)
[2023-06-08] MEDS ORDERED: INSULIN (NOVOLOG) ASPART 100 UNITS/ML 10ML VIAL ONE (12:11)
[2023-06-08] MEDS: glipiZIDE 5 MG TABLET (FP) PO SCH (16:57)
[2023-06-08] MEDS: QUEtiapine FUMARATE 400 MG TABLET PO SCH (22:01)
[2023-06-08] MEDS: ATORVASTATIN CA 10 MG TABLET (FP) PO SCH (22:01)
[2023-06-08] MEDS: THIAMINE HCL 100 MG TABLET (FP) PO SCH (22:01)
[2023-06-09] MEDS: LORazepam 1 MG TABLET PO SCH ×4 (05:18→22:07)
[2023-06-09] MEDS: INSULIN SLIDING SCALE (NOVOLOG) 1 VIAL SQ SCH ×4 (06:21→22:03)
[2023-06-09] MEDS: glipiZIDE 5 MG TABLET (FP) PO SCH ×2 (06:21→17:08)
[2023-06-09] MEDS: metFORMIN HCL 500 MG TABLET (FP) PO SCH ×2 (06:21→17:08)
[2023-06-09] MEDS: TAMSULOSIN HCL 0.4 MG CAP PO SCH (08:58)
[2023-06-09] MEDS: PRENATAL VITAMINS W/ FOLIC ACID TABLET (FP) PO SCH (10:45)
[2023-06-09] MEDS: BUDESONIDE/FORMETEROL FUMARATE 80/4.5 mcg INHALER IH SCH ×2 (10:45→22:09)
[2023-06-09] MEDS: LOSARTAN POTASSIUM 50 MG TABLET PO SCH (10:46)
[2023-06-09] MEDS: QUEtiapine FUMARATE 100 MG TABLET (FP) PO SCH (10:46)
[2023-06-09] MEDS: METHOCARBAMOL 500 MG TABLET PO PRN (10:46)
[2023-06-09] MEDS: SERTRALINE HCL 50 MG TABLET (FP) PO SCH (10:46)
[2023-06-09] MEDS: hydrOXYzine PAMOATE 25 MG CAPSULE (FP) PO PRN (10:46)
[2023-06-09] MEDS: LACTULOSE 20 GM/30 ML UDC (FOR ORAL USE ONLY) PO SCH ×4 (10:49→22:41)
[2023-06-09] MEDS ORDERED: INSULIN (NOVOLOG) ASPART 100 UNITS/ML 10ML VIAL ONE (22:05)
[2023-06-09] MEDS: ATORVASTATIN CA 10 MG TABLET (FP) PO SCH (22:06)
[2023-06-09] MEDS: THIAMINE HCL 100 MG TABLET (FP) PO SCH (22:06)
[2023-06-09] MEDS: QUEtiapine FUMARATE 400 MG TABLET PO SCH (22:07)
[2023-06-10] MEDS ORDERED: LORazepam 0.5 MG TABLET PO PRN
[2023-06-10] MEDS: LORazepam 0.5 MG TABLET PO SCH ×4 (05:43→22:01)
[2023-06-10] MEDS: hydrOXYzine PAMOATE 25 MG CAPSULE (FP) PO PRN ×2 (05:43→10:43)
[2023-06-10] MEDS: INSULIN SLIDING SCALE (NOVOLOG) 1 VIAL SQ SCH ×4 (06:26→22:40)
[2023-06-10] MEDS: glipiZIDE 5 MG TABLET (FP) PO SCH ×2 (06:26→17:03)
[2023-06-10] MEDS: metFORMIN HCL 500 MG TABLET (FP) PO SCH ×2 (06:26→17:02)
[2023-06-10] MEDS: TAMSULOSIN HCL 0.4 MG CAP PO SCH (08:20)
[2023-06-10] MEDS: SERTRALINE HCL 50 MG TABLET (FP) PO SCH (10:42)
[2023-06-10] MEDS: PRENATAL VITAMINS W/ FOLIC ACID TABLET (FP) PO SCH (10:42)
[2023-06-10] MEDS: LOSARTAN POTASSIUM 50 MG TABLET PO SCH (10:42)
[2023-06-10] MEDS: LACTULOSE 20 GM/30 ML UDC (FOR ORAL USE ONLY) PO SCH ×4 (10:42→22:40)
[2023-06-10] MEDS: BUDESONIDE/FORMETEROL FUMARATE 80/4.5 mcg INHALER IH SCH ×2 (10:43→22:40)
[2023-06-10] MEDS: QUEtiapine FUMARATE 100 MG TABLET (FP) PO SCH (10:43)
[2023-06-10] MEDS: METHOCARBAMOL 500 MG TABLET PO PRN (10:43)
[2023-06-10] MEDS: QUEtiapine FUMARATE 400 MG TABLET PO SCH (22:00)
[2023-06-10] MEDS: ATORVASTATIN CA 10 MG TABLET (FP) PO SCH (22:00)
[2023-06-10] MEDS: THIAMINE HCL 100 MG TABLET (FP) PO SCH (22:00)
[2023-06-11] MEDS ORDERED: LORazepam 0.5 MG TABLET PO ONE (05:00)
[2023-06-11] MEDS: hydrOXYzine PAMOATE 25 MG CAPSULE (FP) PO PRN ×2 (05:35→10:01)
[2023-06-11] MEDS: glipiZIDE 5 MG TABLET (FP) PO SCH (06:37)
[2023-06-11] MEDS: metFORMIN HCL 500 MG TABLET (FP) PO SCH (06:37)
[2023-06-11] MEDS: INSULIN SLIDING SCALE (NOVOLOG) 1 VIAL SQ SCH (06:37)
[2023-06-11] MEDS: TAMSULOSIN HCL 0.4 MG CAP PO SCH (08:37)
[2023-06-11 09:38] VITALS: BP 122/72; PULSE 80; RESP 16; TEMP 98.1
[2023-06-11] MEDS: QUEtiapine FUMARATE 100 MG TABLET (FP) PO SCH (10:00)
[2023-06-11] MEDS: SERTRALINE HCL 50 MG TABLET (FP) PO SCH (10:00)
[2023-06-11] MEDS: PRENATAL VITAMINS W/ FOLIC ACID TABLET (FP) PO SCH (10:00)
[2023-06-11] MEDS: LOSARTAN POTASSIUM 50 MG TABLET PO SCH (10:01)
[2023-06-11] MEDS: LACTULOSE 20 GM/30 ML UDC (FOR ORAL USE ONLY) PO SCH (10:01)
[2023-06-11] MEDS: BUDESONIDE/FORMETEROL FUMARATE 80/4.5 mcg INHALER IH SCH (10:01)
== END 2023-06-11 11:05 | disposition other institution (70) | DRG 897 ==
LOC: YASAS 09:23 → Y6N 10:44
PROVIDERS: ADMIT Allergy & Immunology; ATTEND Surgery
PROC: HZ2ZZZZ Detoxification Services for Substance Abuse Treatment (ICD-10-PCS; principal; 2023-06-07)
DX: F10.230 Alcohol dependence with withdrawal, uncomplicated (principal); F19.280 Other psychoactive substance dependence with psychoactive substance-induced anxiety disorder; F19.282 Other psychoactive substance dependence with psychoactive substance-induced sleep disorder; F14.10 Cocaine abuse, uncomplicated; F31.9 Bipolar disorder, unspecified; I10 Essential (primary) hypertension; E78.5 Hyperlipidemia, unspecified; E11.9 Type 2 diabetes mellitus without complications; Z79.84 Long term (current) use of oral hypoglycemic drugs; J43.0 Unilateral pulmonary emphysema [MacLeod's syndrome]; J45.20 Mild intermittent asthma, uncomplicated; N40.0 Benign prostatic hyperplasia without lower urinary tract symptoms; E66.9 Obesity, unspecified; Z68.32 Body mass index [BMI] 32.0-32.9, adult; Z88.0 Allergy status to penicillin
CPT/HCPCS: 36415; 80053; 82140; 82962; 85027; 86780; 87635; 87811

== ENCOUNTER 2023-06-11 11:12 | Inpatient (IN) | payer OTHER ==
[2023-06-11] MEDS ORDERED: AMMONIUM LACTATE 12% LOTION 225 GM BOTTLE TP PRN (12:32)
[2023-06-11] MEDS ORDERED: MAGNESIUM HYDROX 2400MG/30ML ORAL SUSPENSION 30 ML CUP PO PRN (12:32)
[2023-06-11] MEDS ORDERED: METHOCARBAMOL 500 MG TABLET PO PRN (12:32)
[2023-06-11] MEDS ORDERED: ACETAMINOPHEN 325 MG TABLET (FP) PO PRN (12:32)
[2023-06-11] MEDS ORDERED: BENZOCAINE/MENTHOL (CHLORASEPTIC ) LOZENGE MM PRN (12:32)
[2023-06-11] MEDS ORDERED: hydrOXYzine PAMOATE 25 MG CAPSULE (FP) PO PRN ×2 (12:32→14:18)
[2023-06-11] MEDS ORDERED: BENZONATATE 200 MG CAPSULE PO PRN (12:32)
[2023-06-11] MEDS ORDERED: MAG HYDROX/AL HYDROX/SIMETH 30 ML UNIT-DOSE CUP PO PRN (12:32)
[2023-06-11] MEDS ORDERED: NICOTINE 7 MG/24 HOURS TOPICAL PATCH TD PRN (12:32)
[2023-06-11] MEDS ORDERED: NICOTINE POLACRILEX 2 MG GUM BUC PRN (12:32)
[2023-06-11] MEDS ORDERED: IBUPROFEN 400 MG TABLET (FP) PO PRN (12:32)
[2023-06-11] MEDS ORDERED: POLYETHYLENE GLYCOL (HEALTHYLAX) 3350 17 GM PACKET PO PRN (12:32)
[2023-06-11] MEDS ORDERED: guaiFENesin 600 MG TABLET.ER (FP) PO PRN (12:32)
[2023-06-11] MEDS ORDERED: LOPERAMIDE HCL 2 MG CAPSULE PO PRN (12:32)
[2023-06-11] MEDS ORDERED: COLLOIDAL OATMEAL 1 BAR EACH TP PRN (12:32)
[2023-06-11] MEDS ORDERED: ALBUTEROL SO4 HFA INHALER IH PRN (12:34)
[2023-06-11] MEDS: LACTULOSE 20 GM/30 ML UDC (FOR ORAL USE ONLY) PO SCH ×3 (14:13→21:28)
[2023-06-11] MEDS: glipiZIDE 5 MG TABLET (FP) PO SCH (16:41)
[2023-06-11] MEDS: metFORMIN HCL 500 MG TABLET (FP) PO SCH (16:41)
[2023-06-11] MEDS: IBUPROFEN 600 MG TABLET (FP) PO PRN (16:42)
[2023-06-11] MEDS: INSULIN SLIDING SCALE (NOVOLOG) 1 VIAL SQ SCH ×2 (16:42→21:28)
[2023-06-11] MEDS: BUDESONIDE/FORMETEROL FUMARATE 80/4.5 mcg INHALER IH SCH (21:28)
[2023-06-11] MEDS ORDERED: QUEtiapine FUMARATE 400 MG TABLET PO SCH (22:00)
[2023-06-11] MEDS ORDERED: THIAMINE HCL 100 MG TABLET (FP) PO SCH (22:00)
[2023-06-11] MEDS ORDERED: MELATONIN 5 MG TABLETS PO SCH (22:00)
[2023-06-11] MEDS ORDERED: ATORVASTATIN CA 10 MG TABLET (FP) PO SCH (22:00)
[2023-06-12] MEDS: glipiZIDE 5 MG TABLET (FP) PO SCH ×2 (06:28→18:31)
[2023-06-12] MEDS: metFORMIN HCL 500 MG TABLET (FP) PO SCH ×2 (06:28→18:34)
[2023-06-12] MEDS: INSULIN SLIDING SCALE (NOVOLOG) 1 VIAL SQ SCH ×4 (06:28→18:32)
[2023-06-12 06:32] VITALS: TEMP 97.6
[2023-06-12] MEDS ORDERED: TAMSULOSIN HCL 0.4 MG CAP PO SCH (08:00)
[2023-06-12 09:01] VITALS: BP 118/73; PULSE 69; RESP 17
[2023-06-12] MEDS: BUDESONIDE/FORMETEROL FUMARATE 80/4.5 mcg INHALER IH SCH (09:56)
[2023-06-12] MEDS: LACTULOSE 20 GM/30 ML UDC (FOR ORAL USE ONLY) PO SCH ×3 (09:56→18:35)
[2023-06-12] MEDS ORDERED: PRENATAL VITAMINS W/ FOLIC ACID TABLET (FP) PO SCH (10:00)
[2023-06-12] MEDS ORDERED: SERTRALINE HCL 50 MG TABLET (FP) PO SCH (10:00)
[2023-06-12] MEDS ORDERED: LOSARTAN POTASSIUM 50 MG TABLET PO SCH (10:00)
[2023-06-12] MEDS ORDERED: QUEtiapine FUMARATE 100 MG TABLET (FP) PO SCH (10:00)
[2023-06-12 13:09] LABS: HIV INTERPRETATION NEGATIVE (NEGATIVE)
[2023-06-12] MEDS: IBUPROFEN 600 MG TABLET (FP) PO PRN (15:58)
== END 2023-06-12 06:15 | disposition left against medical advice (07) | DRG 894 ==
LOC: YASAS 11:12 → Y3E 11:13
PROVIDERS: ADMIT Allergy & Immunology; ATTEND Psychiatry & Neurology Pain Medicine
PROC: HZ42ZZZ Group Counseling for Substance Abuse Treatment, Cognitive-Behavioral (ICD-10-PCS; principal; 2023-06-11)
DX: F10.20 Alcohol dependence, uncomplicated (principal); F14.20 Cocaine dependence, uncomplicated; F41.9 Anxiety disorder, unspecified; R79.89 Other specified abnormal findings of blood chemistry; Z88.0 Allergy status to penicillin
CPT/HCPCS: 36415; 82140; 82962; 87389

== ENCOUNTER 2023-07-08 19:36 | Inpatient (IN) | payer OTHER ==
[2023-07-08 19:53] VITALS: BMI 31.3
[2023-07-08] MEDS ORDERED: ACETAMINOPHEN 325 MG TABLET (FP) PO PRN (20:27)
[2023-07-08] MEDS ORDERED: ONDANSETRON *ODT* 4 MG TABLET SL PRN (20:27)
[2023-07-08] MEDS ORDERED: DICYCLOMINE HCL 10 MG CAPSULE PO PRN (20:27)
[2023-07-08] MEDS ORDERED: MAGNESIUM HYDROX 2400MG/30ML ORAL SUSPENSION 30 ML CUP PO PRN (20:27)
[2023-07-08] MEDS ORDERED: POLYETHYLENE GLYCOL (HEALTHYLAX) 3350 17 GM PACKET PO PRN (20:27)
[2023-07-08] MEDS ORDERED: BENZONATATE 200 MG CAPSULE PO PRN (20:27)
[2023-07-08] MEDS ORDERED: BENZOCAINE/MENTHOL (CHLORASEPTIC ) LOZENGE MM PRN (20:27)
[2023-07-08] MEDS ORDERED: guaiFENesin 600 MG TABLET.ER (FP) PO PRN (20:27)
[2023-07-08] MEDS ORDERED: IBUPROFEN 400 MG TABLET (FP) PO PRN (20:27)
[2023-07-08] MEDS ORDERED: BISMUTH SUBSALICYLATE 524 MG/30 ML PO PRN (20:27)
[2023-07-08] MEDS ORDERED: NALOXONE HCL (KLOXXADO) 8 MG SPRAY NS PRN (20:27)
[2023-07-08] MEDS ORDERED: LOPERAMIDE HCL 2 MG CAPSULE PO PRN (20:27)
[2023-07-08] MEDS ORDERED: IBUPROFEN 600 MG TABLET (FP) PO PRN (20:27)
[2023-07-08] MEDS ORDERED: NALOXONE HCL 0.4 MG/ML VIAL IM PRN (20:27)
[2023-07-08] MEDS ORDERED: chlordiazePOXIDE HCL 25 MG CAPSULE PO PRN (20:47)
[2023-07-08] MEDS ORDERED: MELATONIN 5 MG TABLETS PO SCH (22:00)
[2023-07-08] MEDS: chlordiazePOXIDE HCL 25 MG CAPSULE PO SCH (22:22)
[2023-07-08] MEDS: THIAMINE HCL 100 MG TABLET (FP) PO SCH (22:22)
[2023-07-09] MEDS: hydrOXYzine PAMOATE 25 MG CAPSULE (FP) PO PRN ×3 (00:42→19:05)
[2023-07-09] MEDS: ALBUTEROL SO4 HFA INHALER IH PRN ×2 (03:01→07:40)
[2023-07-09] MEDS: chlordiazePOXIDE HCL 25 MG CAPSULE PO SCH ×4 (05:54→22:09)
[2023-07-09] MEDS: metFORMIN HCL 500 MG TABLET (FP) PO SCH ×2 (06:08→17:26)
[2023-07-09] MEDS: ALBUTEROL SO4 0.083% IH SOL 2.5 MG/3 ML VIAL.NEB. NEB PRN ×2 (09:57→19:28)
[2023-07-09 10:15] LABS: HEMATOCRIT 40.9 % (35.4-49); HEMOGLOBIN 13.5 GM/dL (11.7-16.9); MCH 30.1 pg (25.7-33.7); MCHC 33.1 g/dl (32.0-35.9); MEAN CELL VOLUME 91.1 fl (80-96); MEAN PLT VOLUME 9.2 fl (7.5-11.1); PLATELET COUNT 248 10^3/uL (134-434); RBC 4.49 M/mm3 (4.00-5.60); RDW 13.7 % (11.9-15.9); WHITE BLOOD COUNT 6.8 K/mm3 (4.0-10.0)
[2023-07-09 10:17] LABS: POTASSIUM 4.2 mmol/L (3.5-5.1)
[2023-07-09 10:19] LABS: ALBUMIN 3.8 g/dl (3.4-5.0); CALCIUM 9.4 mg/dL (8.5-10.1)
[2023-07-09] MEDS: LOSARTAN POTASSIUM 50 MG TABLET PO SCH (10:21)
[2023-07-09] MEDS: BUDESONIDE/FORMETEROL FUMARATE 80/4.5 mcg INHALER IH SCH ×2 (10:21→22:11)
[2023-07-09] MEDS: PRENATAL VITAMINS W/ FOLIC ACID TABLET (FP) PO SCH (10:21)
[2023-07-09 10:24] LABS: CREATININE 0.9 mg/dL (0.55-1.3)
[2023-07-09 10:25] LABS: BILIRUBIN,TOTAL 0.4 mg/dL (0.2-1)
[2023-07-09] MEDS ORDERED: ALBUTEROL SO4 HFA INHALER IH ONE (11:00)
[2023-07-09] MEDS ORDERED: INSULIN SLIDING SCALE (NOVOLOG) 1 VIAL SQ SCH (11:00)
[2023-07-09] MEDS ORDERED: ALBUTEROL SO4 0.083% IH SOL 2.5 MG/3 ML VIAL.NEB. NEB ONE ×2 (11:00→14:15)
[2023-07-09] MEDS ORDERED: INSULIN (NOVOLOG) ASPART 100 UNITS/ML 10ML VIAL ONE ×3 (11:44→22:13)
[2023-07-09] MEDS: SERTRALINE HCL 50 MG TABLET (FP) PO SCH (11:50)
[2023-07-09] MEDS: QUEtiapine FUMARATE 100 MG TABLET (FP) PO SCH (11:50)
[2023-07-09] MEDS ORDERED: DOCUSATE NA 100 MG/10 ML UNIT-DOSE CUPS PO SCH ×2 (14:00→15:30)
[2023-07-09] MEDS ORDERED: DOCUSATE SODIUM 100 MG CAPSULE (FP) PO SCH (14:45)
[2023-07-09] MEDS: DOCUSATE NA 100 MG/10 ML UNIT-DOSE CUPS PO SCH (16:01)
[2023-07-09] MEDS: glipiZIDE 5 MG TABLET (FP) PO SCH (17:27)
[2023-07-09] MEDS: INSULIN SLIDING SCALE (NOVOLOG) 1 VIAL SQ SCH ×2 (17:27→22:09)
[2023-07-09] MEDS ORDERED: DOCUSATE NA 100 MG/10 ML UNIT-DOSE CUPS PO PRN (22:00)
[2023-07-09] MEDS: ATORVASTATIN CA 10 MG TABLET (FP) PO SCH (22:09)
[2023-07-09] MEDS: QUEtiapine FUMARATE 400 MG TABLET PO SCH (22:09)
[2023-07-09] MEDS: THIAMINE HCL 100 MG TABLET (FP) PO SCH (22:09)
[2023-07-10] MEDS: ALBUTEROL SO4 HFA INHALER IH PRN ×2 (01:16→10:28)
[2023-07-10] MEDS: chlordiazePOXIDE HCL 25 MG CAPSULE PO SCH ×4 (05:22→22:11)
[2023-07-10] MEDS: hydrOXYzine PAMOATE 25 MG CAPSULE (FP) PO PRN ×2 (05:24→10:28)
[2023-07-10] MEDS ORDERED: INSULIN (NOVOLOG) ASPART 100 UNITS/ML 10ML VIAL ONE ×3 (05:26→16:41)
[2023-07-10] MEDS: metFORMIN HCL 500 MG TABLET (FP) PO SCH ×2 (06:04→16:54)
[2023-07-10] MEDS: glipiZIDE 5 MG TABLET (FP) PO SCH ×2 (06:04→16:55)
[2023-07-10] MEDS: INSULIN SLIDING SCALE (NOVOLOG) 1 VIAL SQ SCH ×4 (06:05→22:10)
[2023-07-10] MEDS: TAMSULOSIN HCL 0.4 MG CAP PO SCH (07:04)
[2023-07-10] MEDS: PRENATAL VITAMINS W/ FOLIC ACID TABLET (FP) PO SCH (10:28)
[2023-07-10] MEDS: QUEtiapine FUMARATE 100 MG TABLET (FP) PO SCH (10:28)
[2023-07-10] MEDS: SERTRALINE HCL 50 MG TABLET (FP) PO SCH (10:28)
[2023-07-10] MEDS: BUDESONIDE/FORMETEROL FUMARATE 80/4.5 mcg INHALER IH SCH ×2 (10:30→22:11)
[2023-07-10] MEDS: LOSARTAN POTASSIUM 50 MG TABLET PO SCH (10:54)
[2023-07-10] MEDS: DOCUSATE NA 100 MG/10 ML UNIT-DOSE CUPS PO SCH (14:16)
[2023-07-10] MEDS: MAG HYDROX/AL HYDROX/SIMETH 30 ML UNIT-DOSE CUP PO PRN (19:55)
[2023-07-10] MEDS: ATORVASTATIN CA 10 MG TABLET (FP) PO SCH (22:10)
[2023-07-10] MEDS: THIAMINE HCL 100 MG TABLET (FP) PO SCH (22:10)
[2023-07-10] MEDS: QUEtiapine FUMARATE 400 MG TABLET PO SCH (22:11)
[2023-07-11] MEDS ORDERED: chlordiazePOXIDE HCL 10 MG CAPSULE PO PRN
[2023-07-11] MEDS: MAG HYDROX/AL HYDROX/SIMETH 30 ML UNIT-DOSE CUP PO PRN ×2 (02:12→23:47)
[2023-07-11] MEDS: chlordiazePOXIDE HCL 10 MG CAPSULE PO SCH ×4 (05:50→22:20)
[2023-07-11] MEDS: hydrOXYzine PAMOATE 25 MG CAPSULE (FP) PO PRN ×3 (05:53→19:02)
[2023-07-11] MEDS: glipiZIDE 5 MG TABLET (FP) PO SCH ×2 (06:10→17:23)
[2023-07-11] MEDS: metFORMIN HCL 500 MG TABLET (FP) PO SCH ×2 (06:10→17:23)
[2023-07-11] MEDS: INSULIN SLIDING SCALE (NOVOLOG) 1 VIAL SQ SCH ×4 (06:10→22:25)
[2023-07-11] MEDS: ALBUTEROL SO4 HFA INHALER IH PRN ×2 (06:14→11:01)
[2023-07-11] MEDS: TAMSULOSIN HCL 0.4 MG CAP PO SCH (07:08)
[2023-07-11] MEDS: PRENATAL VITAMINS W/ FOLIC ACID TABLET (FP) PO SCH (10:52)
[2023-07-11] MEDS: LOSARTAN POTASSIUM 50 MG TABLET PO SCH (10:53)
[2023-07-11] MEDS: QUEtiapine FUMARATE 100 MG TABLET (FP) PO SCH (10:53)
[2023-07-11] MEDS: SERTRALINE HCL 50 MG TABLET (FP) PO SCH ×2 (10:53→10:59)
[2023-07-11] MEDS: METHOCARBAMOL 500 MG TABLET PO PRN (10:55)
[2023-07-11] MEDS: BUDESONIDE/FORMETEROL FUMARATE 80/4.5 mcg INHALER IH SCH ×2 (10:55→22:20)
[2023-07-11] MEDS ORDERED: INSULIN (NOVOLOG) ASPART 100 UNITS/ML 10ML VIAL ONE ×3 (11:05→22:26)
[2023-07-11] MEDS: DOCUSATE NA 100 MG/10 ML UNIT-DOSE CUPS PO SCH (13:07)
[2023-07-11] MEDS: ATORVASTATIN CA 10 MG TABLET (FP) PO SCH (22:20)
[2023-07-11] MEDS: THIAMINE HCL 100 MG TABLET (FP) PO SCH (22:20)
[2023-07-11] MEDS: QUEtiapine FUMARATE 400 MG TABLET PO SCH (22:20)
[2023-07-12] MEDS: chlordiazePOXIDE HCL 10 MG CAPSULE PO SCH ×2 (05:45→17:40)
[2023-07-12] MEDS: hydrOXYzine PAMOATE 25 MG CAPSULE (FP) PO PRN ×2 (05:46→10:48)
[2023-07-12] MEDS: INSULIN SLIDING SCALE (NOVOLOG) 1 VIAL SQ SCH ×4 (06:06→22:06)
[2023-07-12] MEDS: metFORMIN HCL 500 MG TABLET (FP) PO SCH ×2 (06:11→17:11)
[2023-07-12] MEDS: glipiZIDE 5 MG TABLET (FP) PO SCH ×2 (06:35→17:11)
[2023-07-12] MEDS: TAMSULOSIN HCL 0.4 MG CAP PO SCH (07:23)
[2023-07-12] MEDS ORDERED: INSULIN (NOVOLOG) ASPART 100 UNITS/ML 10ML VIAL ONE ×2 (07:25→16:41)
[2023-07-12] MEDS: BUDESONIDE/FORMETEROL FUMARATE 80/4.5 mcg INHALER IH SCH ×2 (10:46→22:23)
[2023-07-12] MEDS: PRENATAL VITAMINS W/ FOLIC ACID TABLET (FP) PO SCH (10:46)
[2023-07-12] MEDS: ALBUTEROL SO4 HFA INHALER IH PRN (10:46)
[2023-07-12] MEDS: SERTRALINE HCL 50 MG TABLET (FP) PO SCH ×2 (10:47)
[2023-07-12] MEDS: LOSARTAN POTASSIUM 50 MG TABLET PO SCH (10:47)
[2023-07-12] MEDS: QUEtiapine FUMARATE 100 MG TABLET (FP) PO SCH (10:48)
[2023-07-12] MEDS: METHOCARBAMOL 500 MG TABLET PO PRN (10:48)
[2023-07-12] MEDS: DOCUSATE NA 100 MG/10 ML UNIT-DOSE CUPS PO SCH (13:51)
[2023-07-12] MEDS: QUEtiapine FUMARATE 400 MG TABLET PO SCH (22:06)
[2023-07-12] MEDS: ATORVASTATIN CA 10 MG TABLET (FP) PO SCH (22:06)
[2023-07-12] MEDS: THIAMINE HCL 100 MG TABLET (FP) PO SCH (22:23)
[2023-07-13] MEDS: ALBUTEROL SO4 HFA INHALER IH PRN (03:47)
[2023-07-13] MEDS: ALBUTEROL SO4 0.083% IH SOL 2.5 MG/3 ML VIAL.NEB. NEB PRN (04:04)
[2023-07-13] MEDS ORDERED: chlordiazePOXIDE HCL 10 MG CAPSULE PO ONE (05:00)
[2023-07-13] MEDS: hydrOXYzine PAMOATE 25 MG CAPSULE (FP) PO PRN (05:59)
[2023-07-13] MEDS ORDERED: INSULIN (NOVOLOG) ASPART 100 UNITS/ML 10ML VIAL ONE (06:00)
[2023-07-13] MEDS: metFORMIN HCL 500 MG TABLET (FP) PO SCH (06:08)
[2023-07-13] MEDS: glipiZIDE 5 MG TABLET (FP) PO SCH (06:08)
[2023-07-13] MEDS: INSULIN SLIDING SCALE (NOVOLOG) 1 VIAL SQ SCH ×2 (06:16→11:28)
[2023-07-13] MEDS: TAMSULOSIN HCL 0.4 MG CAP PO SCH (07:14)
[2023-07-13 09:37] VITALS: RESP 18
[2023-07-13] MEDS: LOSARTAN POTASSIUM 50 MG TABLET PO SCH (10:11)
[2023-07-13] MEDS: BUDESONIDE/FORMETEROL FUMARATE 80/4.5 mcg INHALER IH SCH (10:12)
[2023-07-13] MEDS: QUEtiapine FUMARATE 100 MG TABLET (FP) PO SCH (10:12)
[2023-07-13] MEDS: SERTRALINE HCL 50 MG TABLET (FP) PO SCH (10:12)
[2023-07-13] MEDS: PRENATAL VITAMINS W/ FOLIC ACID TABLET (FP) PO SCH (10:12)
[2023-07-13 12:48] VITALS: BP 137/78; PULSE 82; TEMP 97.5
[2023-07-13] MEDS: DOCUSATE NA 100 MG/10 ML UNIT-DOSE CUPS PO SCH (15:16)
== END 2023-07-13 14:30 | disposition home or self-care (01) | DRG 897 ==
LOC: YASAS 19:36 → Y6N 21:29
PROVIDERS: ADMIT Allergy & Immunology; ATTEND Surgery
PROC: HZ2ZZZZ Detoxification Services for Substance Abuse Treatment (ICD-10-PCS; principal; 2023-07-08)
DX: F10.230 Alcohol dependence with withdrawal, uncomplicated (principal); F31.9 Bipolar disorder, unspecified; F25.1 Schizoaffective disorder, depressive type; F10.280 Alcohol dependence with alcohol-induced anxiety disorder; F10.282 Alcohol dependence with alcohol-induced sleep disorder; I10 Essential (primary) hypertension; J45.20 Mild intermittent asthma, uncomplicated; K59.00 Constipation, unspecified; N40.0 Benign prostatic hyperplasia without lower urinary tract symptoms; E11.9 Type 2 diabetes mellitus without complications; Z79.84 Long term (current) use of oral hypoglycemic drugs; E66.9 Obesity, unspecified; Z68.32 Body mass index [BMI] 32.0-32.9, adult; Z88.0 Allergy status to penicillin
CPT/HCPCS: 36415; 80053; 82962; 85027; 86780; 87635; 94640

== ENCOUNTER 2023-10-30 09:05 | Inpatient (IN) | payer OTHER ==
[2023-10-30 09:39] VITALS: BMI 31.1
[2023-10-30] MEDS ORDERED: METHOCARBAMOL 500 MG TABLET PO PRN (10:07)
[2023-10-30] MEDS ORDERED: BENZOCAINE/MENTHOL (CHLORASEPTIC ) LOZENGE MM PRN (10:07)
[2023-10-30] MEDS ORDERED: MAG HYDROX/AL HYDROX/SIMETH 30 ML UNIT-DOSE CUP PO PRN (10:07)
[2023-10-30] MEDS ORDERED: BISMUTH SUBSALICYLATE 262 MG/15 ML BTL PO PRN (10:07)
[2023-10-30] MEDS ORDERED: LOPERAMIDE HCL 2 MG CAPSULE PO PRN (10:07)
[2023-10-30] MEDS ORDERED: POLYETHYLENE GLYCOL (HEALTHYLAX) 3350 17 GM PACKET PO PRN (10:07)
[2023-10-30] MEDS ORDERED: chlordiazePOXIDE HCL 25 MG CAPSULE PO PRN (10:07)
[2023-10-30] MEDS ORDERED: ACETAMINOPHEN 325 MG TABLET (FP) PO PRN (10:07)
[2023-10-30] MEDS ORDERED: NALOXONE HCL (KLOXXADO) 8 MG SPRAY NS PRN (10:07)
[2023-10-30] MEDS ORDERED: NALOXONE HCL 0.4 MG/ML VIAL IM PRN (10:07)
[2023-10-30] MEDS ORDERED: IBUPROFEN 400 MG TABLET (FP) PO PRN (10:07)
[2023-10-30] MEDS ORDERED: IBUPROFEN 600 MG TABLET (FP) PO PRN (10:07)
[2023-10-30] MEDS ORDERED: MAGNESIUM HYDROX 2400MG/30ML ORAL SUSPENSION 30 ML CUP PO PRN (10:07)
[2023-10-30] MEDS ORDERED: guaiFENesin 600 MG TABLET.ER (FP) PO PRN (10:07)
[2023-10-30] MEDS ORDERED: BENZONATATE 200 MG CAPSULE PO PRN (10:07)
[2023-10-30] MEDS ORDERED: DICYCLOMINE HCL 10 MG CAPSULE PO PRN (10:07)
[2023-10-30] MEDS ORDERED: ONDANSETRON *ODT* 4 MG TABLET SL PRN (10:07)
[2023-10-30] MEDS ORDERED: ALBUTEROL SO4 HFA INHALER IH PRN (10:09)
[2023-10-30] MEDS ORDERED: chlordiazePOXIDE HCL 25 MG CAPSULE ONE (11:14)
[2023-10-30] MEDS ORDERED: PRENATAL VITAMINS W/ FOLIC ACID TABLET (FP) PO ONE (11:15)
[2023-10-30] MEDS: PRENATAL VITAMINS W/ FOLIC ACID TABLET (FP) PO SCH (11:18)
[2023-10-30] MEDS: chlordiazePOXIDE HCL 25 MG CAPSULE PO SCH ×3 (11:19→22:13)
[2023-10-30] MEDS ORDERED: INSULIN (NOVOLOG) ASPART 100 UNITS/ML 10ML VIAL SQ ONE (12:24)
[2023-10-30] MEDS ORDERED: INSULIN (NOVOLOG) ASPART 100 UNITS/ML 10ML VIAL ONE (12:34)
[2023-10-30] MEDS: hydrOXYzine PAMOATE 25 MG CAPSULE (FP) PO PRN (14:22)
[2023-10-30] MEDS ORDERED: INSULIN SLIDING SCALE (NOVOLOG) 1 VIAL SQ SCH (16:30)
[2023-10-30] MEDS: glipiZIDE 5 MG TABLET (FP) PO SCH (17:30)
[2023-10-30] MEDS: metFORMIN HCL 500 MG TABLET (FP) PO SCH (17:30)
[2023-10-30] MEDS: INSULIN SLIDING SCALE (NOVOLOG) 1 VIAL SQ SCH ×2 (17:45→22:14)
[2023-10-30] MEDS: ATORVASTATIN CA 10 MG TABLET (FP) PO SCH (22:13)
[2023-10-30] MEDS: THIAMINE HCL 100 MG TABLET (FP) PO SCH (22:13)
[2023-10-30] MEDS: MELATONIN 5 MG TABLETS PO SCH (22:13)
[2023-10-30] MEDS: QUEtiapine FUMARATE 400 MG TABLET PO SCH (22:13)
[2023-10-30] MEDS: LACTULOSE 20 GM/30 ML UDC (FOR ORAL USE ONLY) PO SCH (22:13)
[2023-10-30] MEDS: BUDESONIDE/FORMETEROL FUMARATE 80/4.5 mcg INHALER IH SCH (22:17)
[2023-10-31] MEDS: chlordiazePOXIDE HCL 25 MG CAPSULE PO SCH ×4 (05:59→22:04)
[2023-10-31] MEDS: hydrOXYzine PAMOATE 25 MG CAPSULE (FP) PO PRN ×2 (06:00→17:41)
[2023-10-31] MEDS: metFORMIN HCL 500 MG TABLET (FP) PO SCH ×2 (06:23→17:30)
[2023-10-31] MEDS: glipiZIDE 5 MG TABLET (FP) PO SCH ×2 (06:23→17:30)
[2023-10-31] MEDS: INSULIN SLIDING SCALE (NOVOLOG) 1 VIAL SQ SCH ×4 (06:39→22:04)
[2023-10-31] MEDS ORDERED: PATIENT'S OWN MEDICATION (NON-FORMULARY) (Alfuzosin Hcl [Alfuzosin Hcl Er] 10 MG Tab.Er.24 PO SCH (10:00)
[2023-10-31] MEDS: BUDESONIDE/FORMETEROL FUMARATE 80/4.5 mcg INHALER IH SCH ×2 (10:14→22:06)
[2023-10-31] MEDS: LACTULOSE 20 GM/30 ML UDC (FOR ORAL USE ONLY) PO SCH ×2 (10:14→22:05)
[2023-10-31] MEDS: PRENATAL VITAMINS W/ FOLIC ACID TABLET (FP) PO SCH (10:14)
[2023-10-31] MEDS: SERTRALINE HCL 50 MG TABLET (FP) PO SCH (10:15)
[2023-10-31] MEDS: QUEtiapine FUMARATE 50 MG TABLET PO SCH (10:15)
[2023-10-31] MEDS: LOSARTAN POTASSIUM 50 MG TABLET PO SCH (10:15)
[2023-10-31] MEDS: TAMSULOSIN HCL 0.4 MG CAP PO SCH (10:15)
[2023-10-31] MEDS ORDERED: FLU VACCINE (FLULAVAL) PF 60 MCG/0.5 ML SYRINGE 2023-2024 IM ONE (12:00)
[2023-10-31] MEDS ORDERED: PNEUMOC 20-VAL CONJ-DIP CRM/PF 0.5 ML SYRINGE IM ONE (12:00)
[2023-10-31] MEDS: QUEtiapine FUMARATE 400 MG TABLET PO SCH (22:04)
[2023-10-31] MEDS: ATORVASTATIN CA 10 MG TABLET (FP) PO SCH (22:05)
[2023-10-31] MEDS: MELATONIN 5 MG TABLETS PO SCH (22:05)
[2023-10-31] MEDS: THIAMINE HCL 100 MG TABLET (FP) PO SCH (22:06)
[2023-11-01] MEDS: chlordiazePOXIDE HCL 25 MG CAPSULE PO SCH ×4 (05:55→22:02)
[2023-11-01] MEDS: hydrOXYzine PAMOATE 25 MG CAPSULE (FP) PO PRN ×2 (06:03→18:49)
[2023-11-01] MEDS: glipiZIDE 5 MG TABLET (FP) PO SCH ×2 (06:04→17:27)
[2023-11-01] MEDS: metFORMIN HCL 500 MG TABLET (FP) PO SCH ×2 (06:04→17:27)
[2023-11-01] MEDS: INSULIN SLIDING SCALE (NOVOLOG) 1 VIAL SQ SCH ×4 (06:07→21:14)
[2023-11-01] MEDS: TAMSULOSIN HCL 0.4 MG CAP PO SCH (09:12)
[2023-11-01] MEDS: BUDESONIDE/FORMETEROL FUMARATE 80/4.5 mcg INHALER IH SCH ×2 (10:10→22:03)
[2023-11-01] MEDS: LACTULOSE 20 GM/30 ML UDC (FOR ORAL USE ONLY) PO SCH ×2 (10:11→22:02)
[2023-11-01] MEDS: SERTRALINE HCL 50 MG TABLET (FP) PO SCH (10:12)
[2023-11-01] MEDS: LOSARTAN POTASSIUM 50 MG TABLET PO SCH (10:12)
[2023-11-01] MEDS: QUEtiapine FUMARATE 50 MG TABLET PO SCH (10:12)
[2023-11-01] MEDS: PRENATAL VITAMINS W/ FOLIC ACID TABLET (FP) PO SCH (10:12)
[2023-11-01 10:47] LABS: HEMATOCRIT 35.9 % (35.4-49); MCH 30.5 pg (25.7-33.7); MCHC 33.5 g/dl (32.0-35.9); MEAN CELL VOLUME 91.1 fl (80-96); MEAN PLT VOLUME 8.7 fl (7.5-11.1); PLATELET COUNT 204 10^3/uL (134-434); RBC 3.94 M/mm3 (4.00-5.60); WHITE BLOOD COUNT 5.6 K/mm3 (4.0-10.0)
[2023-11-01 11:33] LABS: HIV INTERPRETATION NEGATIVE (NEGATIVE)
[2023-11-01 14:14] LABS: CHLORIDE 103 mmol/L (98-107); POTASSIUM 3.8 mmol/L (3.5-5.1); SODIUM 136 mmol/L (136-145)
[2023-11-01 14:20] LABS: ANION GAP 6 mmol/L (4-13); BLOOD UREA NITROGEN 15.6 mg/dL (7-18); CALCIUM 9.1 mg/dL (8.5-10.1); CO2 26 mmol/L (21-32)
[2023-11-01 14:22] LABS: ALBUMIN 3.4 g/dl (3.4-5.0); GLUCOSE,RANDOM 210 mg/dL (74-106)
[2023-11-01 14:23] LABS: CREATININE 0.8 mg/dL (0.55-1.3); SGPT/ALT 34 U/L (13-61)
[2023-11-01 14:24] LABS: SGOT/AST 14 U/L (15-37)
[2023-11-01 14:26] LABS: ALK PHOS 45 U/L (45-117)
[2023-11-01 14:28] LABS: TOT PROT 6.1 g/dl (6.4-8.2)
[2023-11-01 14:31] LABS: BILIRUBIN,TOTAL 0.2 mg/dL (0.2-1)
[2023-11-01] MEDS: MELATONIN 5 MG TABLETS PO SCH (22:02)
[2023-11-01] MEDS: ATORVASTATIN CA 10 MG TABLET (FP) PO SCH (22:02)
[2023-11-01] MEDS: QUEtiapine FUMARATE 400 MG TABLET PO SCH (22:02)
[2023-11-01] MEDS: THIAMINE HCL 100 MG TABLET (FP) PO SCH (22:03)
[2023-11-02] MEDS ORDERED: chlordiazePOXIDE HCL 10 MG CAPSULE PO PRN
[2023-11-02] MEDS: chlordiazePOXIDE HCL 10 MG CAPSULE PO SCH ×4 (05:40→22:10)
[2023-11-02] MEDS: hydrOXYzine PAMOATE 25 MG CAPSULE (FP) PO PRN ×2 (05:42→17:23)
[2023-11-02] MEDS ORDERED: INSULIN SLIDING SCALE (NOVOLOG) 1 VIAL SQ ONE (07:39)
[2023-11-02] MEDS: metFORMIN HCL 500 MG TABLET (FP) PO SCH ×2 (07:41→17:23)
[2023-11-02] MEDS: glipiZIDE 5 MG TABLET (FP) PO SCH ×2 (07:42→17:23)
[2023-11-02] MEDS: INSULIN SLIDING SCALE (NOVOLOG) 1 VIAL SQ SCH ×4 (07:42→22:13)
[2023-11-02] MEDS: TAMSULOSIN HCL 0.4 MG CAP PO SCH (08:54)
[2023-11-02] MEDS: SERTRALINE HCL 50 MG TABLET (FP) PO SCH (10:24)
[2023-11-02] MEDS: BUDESONIDE/FORMETEROL FUMARATE 80/4.5 mcg INHALER IH SCH ×2 (10:25→22:40)
[2023-11-02] MEDS: PRENATAL VITAMINS W/ FOLIC ACID TABLET (FP) PO SCH (10:25)
[2023-11-02] MEDS: QUEtiapine FUMARATE 50 MG TABLET PO SCH (10:25)
[2023-11-02] MEDS: LACTULOSE 20 GM/30 ML UDC (FOR ORAL USE ONLY) PO SCH ×2 (10:25→22:10)
[2023-11-02] MEDS: LOSARTAN POTASSIUM 50 MG TABLET PO SCH (10:25)
[2023-11-02] MEDS: ATORVASTATIN CA 10 MG TABLET (FP) PO SCH (22:10)
[2023-11-02] MEDS: MELATONIN 5 MG TABLETS PO SCH (22:10)
[2023-11-02] MEDS: THIAMINE HCL 100 MG TABLET (FP) PO SCH (22:10)
[2023-11-02] MEDS: QUEtiapine FUMARATE 400 MG TABLET PO SCH (22:16)
[2023-11-03] MEDS: chlordiazePOXIDE HCL 10 MG CAPSULE PO SCH ×2 (05:48→17:30)
[2023-11-03] MEDS: hydrOXYzine PAMOATE 25 MG CAPSULE (FP) PO PRN ×2 (05:53→17:33)
[2023-11-03] MEDS: metFORMIN HCL 500 MG TABLET (FP) PO SCH ×2 (06:28→17:25)
[2023-11-03] MEDS: glipiZIDE 5 MG TABLET (FP) PO SCH ×2 (06:28→17:25)
[2023-11-03] MEDS: INSULIN SLIDING SCALE (NOVOLOG) 1 VIAL SQ SCH ×4 (06:28→21:20)
[2023-11-03] MEDS: TAMSULOSIN HCL 0.4 MG CAP PO SCH (08:45)
[2023-11-03] MEDS: BUDESONIDE/FORMETEROL FUMARATE 80/4.5 mcg INHALER IH SCH ×2 (10:29→22:09)
[2023-11-03] MEDS: LACTULOSE 20 GM/30 ML UDC (FOR ORAL USE ONLY) PO SCH ×2 (10:29→22:09)
[2023-11-03] MEDS: QUEtiapine FUMARATE 50 MG TABLET PO SCH (10:30)
[2023-11-03] MEDS: SERTRALINE HCL 50 MG TABLET (FP) PO SCH (10:30)
[2023-11-03] MEDS: LOSARTAN POTASSIUM 50 MG TABLET PO SCH (10:30)
[2023-11-03] MEDS: PRENATAL VITAMINS W/ FOLIC ACID TABLET (FP) PO SCH (10:30)
[2023-11-03] MEDS: MELATONIN 5 MG TABLETS PO SCH (22:09)
[2023-11-03] MEDS: ATORVASTATIN CA 10 MG TABLET (FP) PO SCH (22:09)
[2023-11-03] MEDS: QUEtiapine FUMARATE 400 MG TABLET PO SCH (22:09)
[2023-11-03] MEDS: THIAMINE HCL 100 MG TABLET (FP) PO SCH (22:09)
[2023-11-04] MEDS ORDERED: INSULIN SLIDING SCALE (NOVOLOG) 1 VIAL SQ ONE (04:21)
[2023-11-04] MEDS ORDERED: chlordiazePOXIDE HCL 10 MG CAPSULE PO ONE (05:00)
[2023-11-04] MEDS: hydrOXYzine PAMOATE 25 MG CAPSULE (FP) PO PRN (05:40)
[2023-11-04 06:06] VITALS: RESP 16
[2023-11-04] MEDS: glipiZIDE 5 MG TABLET (FP) PO SCH (06:12)
[2023-11-04] MEDS: metFORMIN HCL 500 MG TABLET (FP) PO SCH (06:12)
[2023-11-04] MEDS: INSULIN SLIDING SCALE (NOVOLOG) 1 VIAL SQ SCH (06:13)
[2023-11-04] MEDS: TAMSULOSIN HCL 0.4 MG CAP PO SCH (08:55)
[2023-11-04] MEDS: QUEtiapine FUMARATE 50 MG TABLET PO SCH (09:11)
[2023-11-04] MEDS: PRENATAL VITAMINS W/ FOLIC ACID TABLET (FP) PO SCH (09:11)
[2023-11-04] MEDS: LOSARTAN POTASSIUM 50 MG TABLET PO SCH (09:12)
[2023-11-04] MEDS: BUDESONIDE/FORMETEROL FUMARATE 80/4.5 mcg INHALER IH SCH (09:14)
[2023-11-04] MEDS: SERTRALINE HCL 50 MG TABLET (FP) PO SCH (09:14)
[2023-11-04] MEDS: LACTULOSE 20 GM/30 ML UDC (FOR ORAL USE ONLY) PO SCH (09:14)
[2023-11-04 09:20] VITALS: BP 105/60; PULSE 68; TEMP 97.7
== END 2023-11-04 09:23 | disposition home or self-care (01) | DRG 897 ==
LOC: YASAS 09:05 → Y3N 10:38
PROVIDERS: ADMIT Allergy & Immunology; ATTEND Surgery
PROC: HZ2ZZZZ Detoxification Services for Substance Abuse Treatment (ICD-10-PCS; principal; 2023-10-30)
DX: F10.230 Alcohol dependence with withdrawal, uncomplicated (principal); F14.20 Cocaine dependence, uncomplicated; F10.982 Alcohol use, unspecified with alcohol-induced sleep disorder; F25.1 Schizoaffective disorder, depressive type; E78.5 Hyperlipidemia, unspecified; I10 Essential (primary) hypertension; J45.20 Mild intermittent asthma, uncomplicated; J43.0 Unilateral pulmonary emphysema [MacLeod's syndrome]; E11.9 Type 2 diabetes mellitus without complications; Z79.84 Long term (current) use of oral hypoglycemic drugs; N40.0 Benign prostatic hyperplasia without lower urinary tract symptoms; R79.89 Other specified abnormal findings of blood chemistry; Z88.0 Allergy status to penicillin
CPT/HCPCS: 36415; 80053; 80307; 82140; 82962; 85027; 86780; 87389; 87635; 87811

== ENCOUNTER 2024-01-28 08:32 | Inpatient (IN) | payer OTHER ==
[2024-01-28 09:15] VITALS: BMI 29.7
[2024-01-28] MEDS ORDERED: METHOCARBAMOL 500 MG TABLET PO PRN (10:27)
[2024-01-28] MEDS ORDERED: BISMUTH SUBSALICYLATE 524 MG/30 ML PO PRN (10:27)
[2024-01-28] MEDS ORDERED: MAG HYDROX/AL HYDROX/SIMETH 30 ML UNIT-DOSE CUP PO PRN (10:27)
[2024-01-28] MEDS ORDERED: BENZONATATE 200 MG CAPSULE PO PRN (10:27)
[2024-01-28] MEDS ORDERED: NALOXONE HCL 0.4 MG/ML VIAL IM PRN (10:27)
[2024-01-28] MEDS ORDERED: DICYCLOMINE HCL 10 MG CAPSULE PO PRN (10:27)
[2024-01-28] MEDS ORDERED: ONDANSETRON *ODT* 4 MG TABLET SL PRN (10:27)
[2024-01-28] MEDS ORDERED: LOPERAMIDE HCL 2 MG CAPSULE PO PRN (10:27)
[2024-01-28] MEDS ORDERED: IBUPROFEN 400 MG TABLET (FP) PO PRN (10:27)
[2024-01-28] MEDS ORDERED: NALOXONE HCL (KLOXXADO) 8 MG SPRAY NS PRN (10:27)
[2024-01-28] MEDS ORDERED: guaiFENesin 600 MG TABLET.ER (FP) PO PRN (10:27)
[2024-01-28] MEDS ORDERED: chlordiazePOXIDE HCL 25 MG CAPSULE PO PRN (10:27)
[2024-01-28] MEDS ORDERED: INSULIN (NOVOLOG) ASPART 100 UNITS/ML 10ML VIAL ONE ×3 (11:06→22:15)
[2024-01-28] MEDS ORDERED: chlordiazePOXIDE HCL 25 MG CAPSULE ONE (11:06)
[2024-01-28] MEDS: chlordiazePOXIDE HCL 25 MG CAPSULE PO SCH (11:10)
[2024-01-28] MEDS: INSULIN (NOVOLOG) ASPART 100 UNITS/ML 10ML VIAL SQ ONE (11:13)
[2024-01-28] MEDS: INSULIN ASPART SLIDING SCALE (NOVOLOG) 1 VIAL SQ SCH (11:16)
[2024-01-28] MEDS ORDERED: IBUPROFEN 600 MG TABLET (FP) PO ONE (11:29)
[2024-01-28] MEDS: IBUPROFEN 600 MG TABLET (FP) PO PRN (11:33)
[2024-01-28] MEDS: SERTRALINE HCL 50 MG TABLET (FP) PO SCH (13:07)
[2024-01-28] MEDS: glipiZIDE 5 MG TABLET (FP) PO SCH (17:20)
[2024-01-28] MEDS: INSULIN (NOVOLOG) ASPART 100 UNITS/ML 10ML VIAL SQ SCH (17:24)
[2024-01-28] MEDS: ALBUTEROL SO4 HFA INHALER IH PRN (18:43)
[2024-01-28] MEDS ORDERED: MELATONIN 5 MG TABLETS PO SCH (22:00)
[2024-01-28] MEDS: QUEtiapine FUMARATE 400 MG TABLET PO SCH (22:16)
[2024-01-28] MEDS: TAMSULOSIN HCL 0.4 MG CAP PO SCH (22:16)
[2024-01-28] MEDS: THIAMINE HCL 100 MG TABLET (FP) PO SCH (22:16)
[2024-01-28] MEDS: ATORVASTATIN CA 10 MG TABLET (FP) PO SCH (22:16)
[2024-01-28] MEDS: BUDESONIDE/FORMETEROL FUMARATE 160/4.5 mcg INHALER IH SCH (22:17)
[2024-01-29] MEDS ORDERED: INSULIN (NOVOLOG) ASPART 100 UNITS/ML 10ML VIAL ONE ×3 (05:32→22:24)
[2024-01-29] MEDS: PRENATAL VITAMINS W/ FOLIC ACID TABLET (FP) PO SCH (10:04)
[2024-01-29] MEDS: LOSARTAN POTASSIUM 50 MG TABLET PO SCH (10:04)
[2024-01-29] MEDS: ACETAMINOPHEN 325 MG TABLET (FP) PO PRN (12:37)
[2024-01-29 13:00] LABS: HEMATOCRIT 41.8 % (35.4-49); HEMOGLOBIN 14.4 GM/dL (11.7-16.9); MCH 30.9 pg (25.7-33.7); MCHC 34.5 g/dl (32.0-35.9); MEAN CELL VOLUME 89.6 fl (80-96); MEAN PLT VOLUME 8.9 fl (7.5-11.1); PLATELET COUNT 183 10^3/uL (134-434); RBC 4.66 M/mm3 (4.00-5.60); RDW 13.7 % (11.9-15.9); WHITE BLOOD COUNT 3.3 K/mm3 (4.0-10.0)
[2024-01-29 13:09] LABS: CHLORIDE 96 mmol/L (98-107); POTASSIUM 4.5 mmol/L (3.5-5.1); SODIUM 130 mmol/L (136-145)
[2024-01-29 13:27] LABS: BLOOD UREA NITROGEN 14.5 mg/dL (7-18); CALCIUM 9.7 mg/dL (8.5-10.1)
[2024-01-29 13:28] LABS: ALBUMIN 4.1 g/dl (3.4-5.0); ANION GAP 10 mmol/L (4-13); CO2 25 mmol/L (21-32)
[2024-01-29 13:31] LABS: SGOT/AST 9 U/L (15-37); SGPT/ALT 37 U/L (13-61)
[2024-01-29 13:32] LABS: BILIRUBIN,TOTAL 0.4 mg/dL (0.2-1); TOT PROT 7.4 g/dl (6.4-8.2)
[2024-01-29 13:33] LABS: ALK PHOS 69 U/L (45-117)
[2024-01-29 13:38] LABS: GLUCOSE,RANDOM 588 mg/dL (74-106)
[2024-01-29] MEDS: POLYETHYLENE GLYCOL (HEALTHYLAX) 3350 17 GM PACKET PO PRN (17:26)
[2024-01-29] MEDS: BENZOCAINE/MENTHOL (CHLORASEPTIC ) LOZENGE MM PRN (23:28)
[2024-01-30] MEDS: chlordiazePOXIDE HCL 25 MG CAPSULE PO SCH (05:21)
[2024-01-30] MEDS ORDERED: INSULIN (NOVOLOG) ASPART 100 UNITS/ML 10ML VIAL ONE ×3 (07:10→21:56)
[2024-01-30] MEDS: hydrOXYzine PAMOATE 25 MG CAPSULE (FP) PO PRN (10:29)
[2024-01-31] MEDS ORDERED: chlordiazePOXIDE HCL 10 MG CAPSULE PO PRN
[2024-01-31] MEDS: chlordiazePOXIDE HCL 10 MG CAPSULE PO SCH (05:41)
[2024-01-31] MEDS ORDERED: ALBUTEROL SO4 2.5/IPRATROPIUM 0.5 INH SOL 3 ML VIAL.NEB. NEB ONE (06:03)
[2024-01-31] MEDS: ALBUTEROL SO4 2.5/IPRATROPIUM 0.5 INH SOL 3 ML VIAL.NEB. NEB ONE (06:23)
[2024-01-31] MEDS ORDERED: INSULIN (NOVOLOG) ASPART 100 UNITS/ML 10ML VIAL ONE (11:15)
[2024-01-31] MEDS: MAGNESIUM HYDROX 2400MG/30ML ORAL SUSPENSION 30 ML CUP PO PRN (18:04)
[2024-02-01] MEDS: chlordiazePOXIDE HCL 10 MG CAPSULE PO SCH (05:23)
[2024-02-01 09:18] VITALS: RESP 18
[2024-02-01 17:24] VITALS: BP 128/79; PULSE 82; TEMP 97.1
[2024-02-02] MEDS ORDERED: chlordiazePOXIDE HCL 10 MG CAPSULE PO ONE (05:00)
== END 2024-02-01 17:50 | disposition home or self-care (01) | DRG 897 ==
LOC: YASAS 08:32 → Y6N 10:41
PROVIDERS: ADMIT Allergy & Immunology; ATTEND Surgery
PROC: HZ2ZZZZ Detoxification Services for Substance Abuse Treatment (ICD-10-PCS; principal; 2024-01-28)
DX: F10.230 Alcohol dependence with withdrawal, uncomplicated (principal); F19.282 Other psychoactive substance dependence with psychoactive substance-induced sleep disorder; F25.1 Schizoaffective disorder, depressive type; F19.24 Other psychoactive substance dependence with psychoactive substance-induced mood disorder; I10 Essential (primary) hypertension; J43.0 Unilateral pulmonary emphysema [MacLeod's syndrome]; J45.20 Mild intermittent asthma, uncomplicated; E11.9 Type 2 diabetes mellitus without complications; Z79.84 Long term (current) use of oral hypoglycemic drugs; N40.0 Benign prostatic hyperplasia without lower urinary tract symptoms; Z88.0 Allergy status to penicillin
CPT/HCPCS: 36415; 80053; 80305; 80307; 82962; 83036; 85027; 86780; 87811; 93005; 93010; 94640

== ENCOUNTER 2024-05-02 08:33 | Inpatient (IN) | payer OTHER ==
[2024-05-02 09:14] VITALS: BMI 31.3
[2024-05-02] MEDS ORDERED: BENZOCAINE/MENTHOL (CHLORASEPTIC ) LOZENGE MM PRN (09:49)
[2024-05-02] MEDS ORDERED: MAGNESIUM HYDROX 2400MG/30ML ORAL SUSPENSION 30 ML CUP PO PRN (09:49)
[2024-05-02] MEDS ORDERED: guaiFENesin 600 MG TABLET.ER (FP) PO PRN (09:49)
[2024-05-02] MEDS ORDERED: POLYETHYLENE GLYCOL (HEALTHYLAX) 3350 17 GM PACKET PO PRN (09:49)
[2024-05-02] MEDS ORDERED: ACETAMINOPHEN 325 MG TABLET (FP) PO PRN (09:49)
[2024-05-02] MEDS ORDERED: LOPERAMIDE HCL 2 MG CAPSULE PO PRN (09:49)
[2024-05-02] MEDS ORDERED: BISMUTH SUBSALICYLATE 262 MG/15 ML BTL PO PRN (09:49)
[2024-05-02] MEDS ORDERED: IBUPROFEN 600 MG TABLET (FP) PO PRN (09:49)
[2024-05-02] MEDS ORDERED: ONDANSETRON *ODT* 4 MG TABLET SL PRN (09:49)
[2024-05-02] MEDS ORDERED: BENZONATATE 200 MG CAPSULE PO PRN (09:49)
[2024-05-02] MEDS ORDERED: DICYCLOMINE HCL 10 MG CAPSULE PO PRN (09:49)
[2024-05-02] MEDS ORDERED: IBUPROFEN 400 MG TABLET (FP) PO PRN (09:49)
[2024-05-02] MEDS ORDERED: PRENATAL VITAMINS W/ FOLIC ACID TABLET (FP) PO ONE (10:39)
[2024-05-02] MEDS: PRENATAL VITAMINS W/ FOLIC ACID TABLET (FP) PO SCH (10:40)
[2024-05-02] MEDS: INSULIN ASPART SLIDING SCALE (NOVOLOG) 1 VIAL SQ SCH (11:20)
[2024-05-02] MEDS ORDERED: INSULIN (NOVOLOG) ASPART 100 UNITS/ML 10ML VIAL ONE ×6 (11:23→22:07)
[2024-05-02] MEDS: ALBUTEROL SO4 HFA INHALER IH PRN (11:34)
[2024-05-02] MEDS: hydrOXYzine PAMOATE 25 MG CAPSULE (FP) PO PRN (15:36)
[2024-05-02] MEDS: METHOCARBAMOL 500 MG TABLET PO PRN (15:36)
[2024-05-02] MEDS: glipiZIDE 5 MG TABLET (FP) PO SCH (18:03)
[2024-05-02] MEDS: chlordiazePOXIDE HCL 25 MG CAPSULE PO PRN (18:16)
[2024-05-02] MEDS: chlordiazePOXIDE HCL 25 MG CAPSULE PO SCH (18:18)
[2024-05-02] MEDS: THIAMINE 100 MG TABLET PO SCH (22:07)
[2024-05-02] MEDS: TAMSULOSIN HCL 0.4 MG CAP PO SCH (22:07)
[2024-05-02] MEDS: ATORVASTATIN CA 10 MG TABLET (FP) PO SCH (22:07)
[2024-05-02] MEDS: QUEtiapine FUMARATE 400 MG TABLET PO SCH (22:08)
[2024-05-02] MEDS: BUDESONIDE/FORMETEROL FUMARATE 160/4.5 mcg INHALER IH SCH (22:08)
[2024-05-02] MEDS: MELATONIN 5 MG TABLETS PO SCH (22:09)
[2024-05-03] MEDS ORDERED: INSULIN (NOVOLOG) ASPART 100 UNITS/ML 10ML VIAL ONE ×3 (07:24→17:22)
[2024-05-03] MEDS: SERTRALINE HCL 50 MG TABLET (FP) PO SCH (09:41)
[2024-05-03] MEDS: LOSARTAN POTASSIUM 50 MG TABLET PO SCH (09:41)
[2024-05-03 13:19] LABS: HEMATOCRIT 40.7 % (35.4-49); HEMOGLOBIN 13.6 GM/dL (11.7-16.9); MCHC 33.5 g/dl (32.0-35.9); MEAN CELL VOLUME 89.7 fl (80-96); MEAN PLT VOLUME 8.6 fl (7.5-11.1); PLATELET COUNT 219 10^3/uL (134-434); RBC 4.53 M/mm3 (4.00-5.60); RDW 13.8 % (11.9-15.9); WHITE BLOOD COUNT 6.9 K/mm3 (4.0-10.0)
[2024-05-03 13:21] LABS: POTASSIUM 4.2 mmol/L (3.5-5.1)
[2024-05-03 13:30] LABS: CALCIUM 9.3 mg/dL (8.5-10.1)
[2024-05-03 13:31] LABS: ALBUMIN 3.9 g/dl (3.4-5.0); BLOOD UREA NITROGEN 12.4 mg/dL (7-18)
[2024-05-03 13:34] LABS: CREATININE 0.9 mg/dL (0.55-1.3)
[2024-05-03 13:35] LABS: BILIRUBIN,TOTAL 0.8 mg/dL (0.2-1)
[2024-05-03 13:36] LABS: TOT PROT 7.1 g/dl (6.4-8.2)
[2024-05-03] MEDS: MAG HYDROX/AL HYDROX/SIMETH 30 ML UNIT-DOSE CUP PO PRN (20:38)
[2024-05-04] MEDS: chlordiazePOXIDE HCL 10 MG CAPSULE PO SCH (05:36)
[2024-05-04] MEDS ORDERED: INSULIN (NOVOLOG) ASPART 100 UNITS/ML 10ML VIAL ONE ×2 (16:44→21:44)
[2024-05-05] MEDS ORDERED: chlordiazePOXIDE HCL 10 MG CAPSULE PO PRN
[2024-05-05] MEDS: chlordiazePOXIDE HCL 10 MG CAPSULE PO SCH (05:37)
[2024-05-05] MEDS ORDERED: INSULIN (NOVOLOG) ASPART 100 UNITS/ML 10ML VIAL ONE (16:52)
[2024-05-06] MEDS: chlordiazePOXIDE HCL 10 MG CAPSULE PO ONE (05:31)
[2024-05-06 06:14] VITALS: RESP 16
[2024-05-06] MEDS ORDERED: INSULIN (NOVOLOG) ASPART 100 UNITS/ML 10ML VIAL ONE (06:45)
[2024-05-06 09:06] VITALS: BP 101/65; PULSE 59; TEMP 97.5
== END 2024-05-06 10:35 | disposition other institution (70) | DRG 897 ==
LOC: YASAS 08:33 → Y6N 10:26
PROVIDERS: ADMIT Allergy & Immunology; ATTEND Surgery
PROC: HZ2ZZZZ Detoxification Services for Substance Abuse Treatment (ICD-10-PCS; principal; 2024-05-02)
DX: F10.230 Alcohol dependence with withdrawal, uncomplicated (principal); F14.20 Cocaine dependence, uncomplicated; F31.9 Bipolar disorder, unspecified; I10 Essential (primary) hypertension; J43.0 Unilateral pulmonary emphysema [MacLeod's syndrome]; J45.20 Mild intermittent asthma, uncomplicated; E78.5 Hyperlipidemia, unspecified; E11.9 Type 2 diabetes mellitus without complications; N40.0 Benign prostatic hyperplasia without lower urinary tract symptoms; R79.89 Other specified abnormal findings of blood chemistry; Z88.0 Allergy status to penicillin
CPT/HCPCS: 36415; 80053; 80305; 80307; 82962; 85027; 86780; 87811

== ENCOUNTER 2024-08-09 09:49 | Inpatient (IN) | payer OTHER ==
[2024-08-09 10:26] VITALS: BMI 32.4
[2024-08-09] MEDS ORDERED: chlordiazePOXIDE HCL 25 MG CAPSULE PO PRN (11:18)
[2024-08-09] MEDS ORDERED: NALOXONE (NARCAN) HCL 4 MG/0.1 ML SPRAY NS PRN (11:20)
[2024-08-09] MEDS ORDERED: BISMUTH SUBSALICYLATE 524 MG/30 ML PO PRN (11:20)
[2024-08-09] MEDS ORDERED: ONDANSETRON *ODT* 4 MG TABLET SL PRN (11:20)
[2024-08-09] MEDS ORDERED: IBUPROFEN 400 MG TABLET (FP) PO PRN (11:20)
[2024-08-09] MEDS ORDERED: POLYETHYLENE GLYCOL (HEALTHYLAX) 3350 17 GM PACKET PO PRN (11:20)
[2024-08-09] MEDS ORDERED: NALOXONE HCL 0.4 MG/ML VIAL IM PRN (11:20)
[2024-08-09] MEDS ORDERED: ACETAMINOPHEN 325 MG TABLET (FP) PO PRN (11:20)
[2024-08-09] MEDS ORDERED: MAGNESIUM HYDROX 2400MG/30ML ORAL SUSPENSION 30 ML CUP PO PRN (11:20)
[2024-08-09] MEDS ORDERED: BENZOCAINE/MENTHOL (CHLORASEPTIC ) LOZENGE MM PRN (11:20)
[2024-08-09] MEDS ORDERED: DICYCLOMINE HCL 10 MG CAPSULE PO PRN (11:20)
[2024-08-09] MEDS ORDERED: BENZONATATE 200 MG CAPSULE PO PRN (11:20)
[2024-08-09] MEDS ORDERED: LOPERAMIDE HCL 2 MG CAPSULE PO PRN (11:20)
[2024-08-09] MEDS ORDERED: guaiFENesin 600 MG TABLET.ER (FP) PO PRN (11:20)
[2024-08-09] MEDS ORDERED: ALBUTEROL SO4 HFA INHALER IH PRN (11:25)
[2024-08-09] MEDS: chlordiazePOXIDE HCL 25 MG CAPSULE PO ONE (12:03)
[2024-08-09] MEDS: INSULIN (NOVOLOG) ASPART 100 UNITS/ML 10ML VIAL SQ ONE (12:21)
[2024-08-09] MEDS: glipiZIDE 5 MG TABLET (FP) PO SCH (16:44)
[2024-08-09] MEDS: chlordiazePOXIDE HCL 25 MG CAPSULE PO SCH (16:49)
[2024-08-09] MEDS: BUDESONIDE/FORMETEROL FUMARATE 160/4.5 mcg INHALER IH SCH (22:16)
[2024-08-09] MEDS: TAMSULOSIN HCL 0.4 MG CAP PO SCH (22:16)
[2024-08-09] MEDS: hydrOXYzine PAMOATE 25 MG CAPSULE (FP) PO PRN (22:16)
[2024-08-09] MEDS: MELATONIN 5 MG TABLETS PO SCH (22:16)
[2024-08-09] MEDS: ATORVASTATIN CA 10 MG TABLET (FP) PO SCH (22:16)
[2024-08-09] MEDS: METHOCARBAMOL 500 MG TABLET PO PRN (22:16)
[2024-08-09] MEDS: THIAMINE 100 MG TABLET PO SCH (22:16)
[2024-08-10] MEDS: IBUPROFEN 600 MG TABLET (FP) PO PRN (00:50)
[2024-08-10] MEDS: LOSARTAN POTASSIUM 50 MG TABLET PO SCH (09:41)
[2024-08-10] MEDS: PRENATAL VITAMINS W/ FOLIC ACID TABLET (FP) PO SCH (09:41)
[2024-08-10] MEDS ORDERED: QUEtiapine FUMARATE 100 MG TABLET (FP) PO SCH (10:00)
[2024-08-10 11:04] LABS: HEMATOCRIT 36.9 % (35.4-49); HEMOGLOBIN 12.4 GM/dL (11.7-16.9); MCH 29.9 pg (25.7-33.7); MCHC 33.6 g/dl (32.0-35.9); MEAN CELL VOLUME 89.1 fl (80-96); MEAN PLT VOLUME 8.1 fl (7.5-11.1); PLATELET COUNT 212 10^3/uL (134-434); RBC 4.14 M/mm3 (4.00-5.60); RDW 13.3 % (11.9-15.9); WHITE BLOOD COUNT 6.1 K/mm3 (4.0-10.0)
[2024-08-10 11:07] LABS: CHLORIDE 101 mmol/L (98-107); POTASSIUM 4.2 mmol/L (3.5-5.1); SODIUM 135 mmol/L (136-145)
[2024-08-10 11:08] LABS: CALCIUM 8.7 mg/dL (8.5-10.1)
[2024-08-10 11:09] LABS: ALBUMIN 3.4 g/dl (3.4-5.0); ANION GAP 6 mmol/L (4-13); CO2 28 mmol/L (21-32); GLUCOSE,RANDOM 264 mg/dL (74-106)
[2024-08-10 11:12] LABS: CREATININE 0.9 mg/dL (0.55-1.3); SGOT/AST 25 U/L (15-37); SGPT/ALT 59 U/L (13-61)
[2024-08-10 11:14] LABS: BILIRUBIN,TOTAL 0.4 mg/dL (0.2-1); TOT PROT 6.2 g/dl (6.4-8.2)
[2024-08-10 11:15] LABS: ALK PHOS 53 U/L (45-117)
[2024-08-10] MEDS: LACTULOSE 20 GM/30 ML UDC (FOR ORAL USE ONLY) PO PRN (17:04)
[2024-08-10] MEDS: QUEtiapine FUMARATE 400 MG TABLET PO SCH (22:02)
[2024-08-11] MEDS: chlordiazePOXIDE HCL 25 MG CAPSULE PO SCH (05:51)
[2024-08-11] MEDS: MAG HYDROX/AL HYDROX/SIMETH 30 ML UNIT-DOSE CUP PO PRN (13:48)
[2024-08-12] MEDS ORDERED: chlordiazePOXIDE HCL 10 MG CAPSULE PO PRN
[2024-08-12] MEDS: chlordiazePOXIDE HCL 10 MG CAPSULE PO SCH (05:38)
[2024-08-13] MEDS: chlordiazePOXIDE HCL 10 MG CAPSULE PO SCH (05:34)
[2024-08-13 09:21] VITALS: BP 136/83; PULSE 90; RESP 18; TEMP 97.6
[2024-08-14] MEDS ORDERED: chlordiazePOXIDE HCL 10 MG CAPSULE PO ONE (05:00)
== END 2024-08-13 10:20 | disposition home or self-care (01) | DRG 897 ==
LOC: YASAS 09:49 → Y3N 11:53
PROVIDERS: ADMIT Allergy & Immunology; ATTEND Surgery
PROC: HZ2ZZZZ Detoxification Services for Substance Abuse Treatment (ICD-10-PCS; principal; 2024-08-09)
DX: F10.230 Alcohol dependence with withdrawal, uncomplicated (principal); F19.282 Other psychoactive substance dependence with psychoactive substance-induced sleep disorder; F19.280 Other psychoactive substance dependence with psychoactive substance-induced anxiety disorder; F14.10 Cocaine abuse, uncomplicated; F31.9 Bipolar disorder, unspecified; I10 Essential (primary) hypertension; J45.909 Unspecified asthma, uncomplicated; E78.5 Hyperlipidemia, unspecified; E11.9 Type 2 diabetes mellitus without complications; Z79.84 Long term (current) use of oral hypoglycemic drugs; N40.1 Benign prostatic hyperplasia with lower urinary tract symptoms; R39.11 Hesitancy of micturition; Z88.0 Allergy status to penicillin
CPT/HCPCS: 36415; 80053; 80305; 80307; 82962; 85027; 86780; 93005; 93010

== ENCOUNTER 2024-09-22 09:21 | Inpatient (IN) | payer OTHER ==
[2024-09-22 10:19] VITALS: BMI 31.3
[2024-09-22] MEDS ORDERED: BENZONATATE 200 MG CAPSULE PO PRN (10:56)
[2024-09-22] MEDS ORDERED: guaiFENesin 600 MG TABLET.ER (FP) PO PRN (10:56)
[2024-09-22] MEDS ORDERED: MAGNESIUM HYDROX 2400MG/30ML ORAL SUSPENSION 30 ML CUP PO PRN (10:56)
[2024-09-22] MEDS ORDERED: ONDANSETRON *ODT* 4 MG TABLET SL PRN (10:56)
[2024-09-22] MEDS ORDERED: DICYCLOMINE HCL 10 MG CAPSULE PO PRN (10:56)
[2024-09-22] MEDS ORDERED: POLYETHYLENE GLYCOL (HEALTHYLAX) 3350 17 GM PACKET PO PRN (10:56)
[2024-09-22] MEDS ORDERED: LOPERAMIDE HCL 2 MG CAPSULE PO PRN (10:56)
[2024-09-22] MEDS ORDERED: NALOXONE (NARCAN) HCL 4 MG/0.1 ML SPRAY NS PRN (10:56)
[2024-09-22] MEDS ORDERED: ACETAMINOPHEN 325 MG TABLET (FP) PO PRN (10:56)
[2024-09-22] MEDS ORDERED: BENZOCAINE/MENTHOL (CHLORASEPTIC ) LOZENGE MM PRN (10:56)
[2024-09-22] MEDS ORDERED: NALOXONE (NYS OPIOID OVERDOSE PROGRAM) 4 MG/0.1 ML SPRAY NS PRN (10:56)
[2024-09-22] MEDS ORDERED: BISMUTH SUBSALICYLATE 262 MG/15 ML BTL PO PRN (10:56)
[2024-09-22] MEDS ORDERED: chlordiazePOXIDE HCL 25 MG CAPSULE PO PRN (10:59)
[2024-09-22] MEDS ORDERED: chlordiazePOXIDE HCL 25 MG CAPSULE ONE (11:29)
[2024-09-22] MEDS ORDERED: PRENATAL VITAMINS W/ FOLIC ACID TABLET (FP) PO ONE (11:29)
[2024-09-22] MEDS: PRENATAL VITAMINS W/ FOLIC ACID TABLET (FP) PO SCH (11:33)
[2024-09-22] MEDS: chlordiazePOXIDE HCL 25 MG CAPSULE PO SCH (11:34)
[2024-09-22] MEDS: metFORMIN HCL 500 MG TABLET (FP) PO SCH (17:21)
[2024-09-22] MEDS: INSULIN ASPART SLIDING SCALE (NOVOLOG) 1 VIAL SQ SCH (17:23)
[2024-09-22] MEDS: ALBUTEROL SO4 HFA INHALER IH PRN (17:49)
[2024-09-22] MEDS: hydrOXYzine PAMOATE 25 MG CAPSULE (FP) PO PRN (18:05)
[2024-09-22] MEDS: glipiZIDE 5 MG TABLET (FP) PO SCH (18:05)
[2024-09-22] MEDS ORDERED: MELATONIN 5 MG TABLETS PO SCH (22:00)
[2024-09-22] MEDS: ATORVASTATIN CA 10 MG TABLET (FP) PO SCH (22:02)
[2024-09-22] MEDS: MELATONIN 5 MG TABLETS PO ONE (22:02)
[2024-09-22] MEDS: TAMSULOSIN HCL 0.4 MG CAP PO SCH (22:03)
[2024-09-22] MEDS: THIAMINE 100 MG TABLET PO SCH (22:03)
[2024-09-23] MEDS: LOSARTAN POTASSIUM 50 MG TABLET PO SCH (10:33)
[2024-09-23] MEDS: MAG HYDROX/AL HYDROX/SIMETH 30 ML UNIT-DOSE CUP PO PRN (10:36)
[2024-09-23] MEDS ORDERED: INSULIN (NOVOLOG) ASPART 100 UNITS/ML 10ML VIAL ONE ×3 (10:43→22:34)
[2024-09-23] MEDS: METHOCARBAMOL 500 MG TABLET PO PRN (13:34)
[2024-09-23] MEDS: IBUPROFEN 600 MG TABLET (FP) PO PRN (13:34)
[2024-09-23 14:42] LABS: HEMOGLOBIN 13.5 GM/dL (11.7-16.9); MCHC 33.7 g/dl (32.0-35.9); MEAN PLT VOLUME 8.4 fl (7.5-11.1); PLATELET COUNT 223 10^3/uL (134-434); RDW 12.9 % (11.9-15.9); WHITE BLOOD COUNT 5.7 K/mm3 (4.0-10.0)
[2024-09-23 14:46] LABS: POTASSIUM 4.3 mmol/L (3.5-5.1)
[2024-09-23 14:55] LABS: ALBUMIN 3.8 g/dl (3.4-5.0); CALCIUM 9.8 mg/dL (8.5-10.1)
[2024-09-23 15:00] LABS: BILIRUBIN,TOTAL 0.5 mg/dL (0.2-1)
[2024-09-23] MEDS: QUEtiapine FUMARATE 400 MG TABLET PO SCH (22:06)
[2024-09-24] MEDS: chlordiazePOXIDE HCL 25 MG CAPSULE PO SCH (05:50)
[2024-09-24] MEDS ORDERED: INSULIN (NOVOLOG) ASPART 100 UNITS/ML 10ML VIAL ONE (11:51)
[2024-09-25] MEDS: chlordiazePOXIDE HCL 10 MG CAPSULE PO SCH (05:55)
[2024-09-25] MEDS: chlordiazePOXIDE HCL 10 MG CAPSULE PO PRN (18:14)
[2024-09-25] MEDS ORDERED: INSULIN (NOVOLOG) ASPART 100 UNITS/ML 10ML VIAL ONE (18:37)
[2024-09-26] MEDS: chlordiazePOXIDE HCL 10 MG CAPSULE PO SCH (05:58)
[2024-09-26] MEDS ORDERED: INSULIN (NOVOLOG) ASPART 100 UNITS/ML 10ML VIAL ONE ×2 (11:40→17:14)
[2024-09-27] MEDS: chlordiazePOXIDE HCL 10 MG CAPSULE PO ONE (05:54)
[2024-09-27] MEDS ORDERED: INSULIN (NOVOLOG) ASPART 100 UNITS/ML 10ML VIAL ONE ×3 (07:47→16:48)
[2024-09-28] MEDS ORDERED: INSULIN (NOVOLOG) ASPART 100 UNITS/ML 10ML VIAL ONE ×2 (05:19→11:07)
[2024-09-28] MEDS: ALBUTEROL SO4 2.5/IPRATROPIUM 0.5 INH SOL 3 ML VIAL.NEB. NEB PRN (11:00)
[2024-09-28] MEDS: NALOXONE (NYS OPIOID OVERDOSE PROGRAM) 4 MG/0.1 ML SPRAY NS SCH (11:41)
[2024-09-28] MEDS: IBUPROFEN 400 MG TABLET (FP) PO PRN (18:21)
[2024-09-29 09:00] VITALS: BP 105/68; PULSE 89; RESP 18; TEMP 97.6
== END 2024-09-29 11:31 | disposition home or self-care (01) | DRG 897 ==
LOC: YASAS 09:21 → Y6N 11:28
PROVIDERS: ADMIT Allergy & Immunology; ATTEND Surgery
PROC: HZ2ZZZZ Detoxification Services for Substance Abuse Treatment (ICD-10-PCS; principal; 2024-09-22)
DX: F10.230 Alcohol dependence with withdrawal, uncomplicated (principal); F14.20 Cocaine dependence, uncomplicated; F19.282 Other psychoactive substance dependence with psychoactive substance-induced sleep disorder; F25.9 Schizoaffective disorder, unspecified; E78.2 Mixed hyperlipidemia; I10 Essential (primary) hypertension; E11.9 Type 2 diabetes mellitus without complications; Z79.84 Long term (current) use of oral hypoglycemic drugs; J43.0 Unilateral pulmonary emphysema [MacLeod's syndrome]; J45.20 Mild intermittent asthma, uncomplicated; N40.0 Benign prostatic hyperplasia without lower urinary tract symptoms; Z88.0 Allergy status to penicillin
CPT/HCPCS: 36415; 80053; 80305; 80307; 82140; 82962; 85027; 86780; 87811; 93005; 93010; 94640